=== PATIENT | female | born 1945 | race African-American/Black ===

== ENCOUNTER 2016-07-27 11:31 | Inpatient (IN) | payer MEDICARE, MEDICAID ==
[~2016-07-27] VITALS: Ht 160 cm; Wt 112.9 kg
[~2016-07-27 11:31] MED LIST: ACETAMINOPHEN325 M1 ORAL; ASPIRIN81 MG ORAL; DILTIAZEM ER180 M3 PO; DIOVAN40 MG ORAL; DOK100 M1 PO; ELIQUIS2.5 MG PO; FUROSEMIDE40 MG ORAL; LEVEMIR FL100 UNIT/1 SUBQ; LEVEMIR FL100 UNIT/2 SQ; MONTELUKAST SOD10 MG ORAL; OMEPRAZOLE20 M2 ORAL; SYMBICORT 16010.2 G1 IH; VENTOLIN HFA18 GM INH
[2016-07-27] MEDS ORDERED: Ipratropium 0.02% Inh Soln 2.5ml UD ONE (11:54)
[2016-07-27] MEDS ORDERED: Albuterol ud Inhalation ONE (11:54)
[2016-07-27 11:55] VITALS: BP 130/102
[2016-07-27] MEDS ORDERED: Morphine Sulfate 4mg/ml Inj IVP ONE (12:00)
[2016-07-27] MEDS ORDERED: Ipratropium 0.02% Inh Soln 2.5ml UD HHN ONE (12:00)
[2016-07-27] MEDS ORDERED: Albuterol ud Inhalation HHN ONE (12:00)
[2016-07-27 12:13] LABS: MEAN CORPUSCULAR HEMOGLOBIN 28.3 PG (27.0-31.0); MEAN CORPUSCULAR HGB CONC 33.2 G/DL (32.0-36.0); MEAN CORPUSCULAR VOLUME 85 FL (80-99); MEAN PLATELET VOLUME 8.7 FL (6.5-10.1); PLATELET COUNT 189 K/UL (150-450); RED BLOOD COUNT 3.83 M/UL (4.20-5.40); WHITE BLOOD COUNT 18.2 K/UL (4.8-10.8)
[2016-07-27 12:27] LABS: ALANINE AMINOTRANSFERASE 17 U/L (3-33); ANION GAP 13 (5-15); ASPARTATE AMINO TRANSFERASE 13 U/L (5-40); CALCIUM 9.3 mg/dL (8.6-10.2); CARBON DIOXIDE 33 mEQ/L (20-30); CHLORIDE 97 mEQ/L (98-107); CREATININE 0.9 mg/dL (0.5-0.9); GLOMERULAR FILTRATION RATE > 60 mL/min (>60); HEMOLYSIS 1; LIPASE 18 U/L (< 60); POTASSIUM 3.9 mEQ/L (3.4-4.9); SODIUM 143 mEQ/L (135-145); TOTAL PROTEIN 7.7 g/dL (6.6-8.7); TROPONIN I < 0.30 ng/mL (<=0.30)
[2016-07-27 12:38] LABS: CKMB < 1.5 ng/mL (< 3.8)
[2016-07-27 12:44] LABS: ANISOCYTOSIS 1+; BAND NEUTROPHILS % (MANUAL) 2 % (0-8); BASOPHILS % (MANUAL) 0 % (0-2); EOSINOPHILS % (MANUAL) 1 % (0-3); LYMPHOCYTES % (MANUAL) 26 % (20-45); NEUTROPHILS % (MANUAL) 66 % (45-75); PLATELET ESTIMATE ADEQUATE; PLATELET MORPHOLOGY NORMAL; TOTAL CELLS COUNTED 100
[2016-07-27 12:45] LABS: HYPOCHROMASIA 1+
--- NOTE | 2016-07-27 13:03 | Diagnostic Imaging Report ---
Indication: Chest Pain Comparison: July 14, 2016 A single view chest radiograph was obtained. Findings: Evidence of increased circulatory volume with cardiac enlargement, enlargement of the vascular pedicle and more prominent pulmonary vessels. Mild interstitial edema suspected. Impression: Development of mild interstitial edema
--- NOTE | 2016-07-27 13:10 | Emergency Room Report ---
History of Present Illness General Chief Complaint: Dyspnea/Respdistress Source: Patient, EMS Present Illness HPI Patient presents with complaints of cough and shortness of breath She has also noticed increased swelling in her both of her legs patient was just recently in the hospital with COPD Patient reports worsening symptoms Unknown regarding fever She also complains of shortness of breath and increased chest pain Patient denies any recent travel denies any pleurisy Allergies: Coded Allergies: PENICILLINS (Verified Allergy, Intermediate, Hives, 07/09/16) Patient History Past Medical History: see triage record Pertinent Family History: none Reviewed Nursing Documentation: PMH: Agreed, PSxH: Agreed Nursing Documentation-PMH Past Medical History: No History, Except For Hx Hypertension: Yes Hx Asthma: Yes Hx COPD: Yes Hx Diabetes: Yes Hx Cancer: No Hx Gastrointestinal Problems: No Hx Neurological Problems: No Review of Systems All Other Systems: negative except mentioned in HPI Physical Exam Vital Signs Date Time Temp Pulse Resp B/P Pulse Ox O2 Delivery O2 Flow Rate FiO2 07/27/16 11:32 98.4 102 20 141/79 96 Nasal Cannula 2.0 07/27/16 11:48 28 Sp02 EP Interpretation: reviewed, normal General Appearance: well appearing, no apparent distress Head: normocephalic, atraumatic Eyes: bilateral eye EOMI, bilateral eye PERRL ENT: normal pharynx, no angioedema Neck: supple Respiratory: crackles - Diffuse crackles along with wheezing, no obvious retractions however the patient is tachypneic Cardiovascular #1: regular rate, rhythm Gastrointestinal: soft, no mass Genitourinary: no CVA tenderness Musculoskeletal: normal inspection Neurologic: alert, oriented x3, responsive Skin: other - 2/4 pitting edema Lymphatic: no adenopathy Medical Decision Making Diagnostic Impression: Primary Impression: ACS (acute coronary syndrome) Additional Impression: CHF (congestive heart failure) ER Course Patient is a fairly complex patient with multiple differential to consideration including but not limited to cardiac cardiopulmonary and vascular emergencies Patient has elevated white blood cell count this could potentially be secondary to steroid use x-ray however also shows bilateral effusions Given the patient's clinical history and findings concerning for acute CHF along with ACS patient had acute intervention in the emergency room and further stabilized for further inpatient care Labs Test 07/27/16 12:00 White Blood Count 18.2 K/UL (4.8-10.8) Red Blood Count 3.83 M/UL (4.20-5.40) Hemoglobin 10.9 G/DL (12.0-16.0) Hematocrit 32.7 % (37.0-47.0) Mean Corpuscular Volume 85 FL (80-99) Mean Corpuscular Hemoglobin 28.3 PG (27.0-31.0) Mean Corpuscular Hemoglobin Concent 33.2 G/DL (32.0-36.0) Red Cell Distribution Width 14.0 % (11.6-14.8) Platelet Count 189 K/UL (150-450) Mean Platelet Volume 8.7 FL (6.5-10.1) Neutrophils (%) (Auto) % (45.0-75.0) Lymphocytes (%) (Auto) % (20.0-45.0) Monocytes (%) (Auto) % (1.0-10.0) Eosinophils (%) (Auto) % (0.0-3.0) Basophils (%) (Auto) % (0.0-2.0) Differential Total Cells Counted 100 Neutrophils % (Manual) 66 % (45-75) Lymphocytes % (Manual) 26 % (20-45) Monocytes % (Manual) 5 % (1-10) Eosinophils % (Manual) 1 % (0-3) Basophils % (Manual) 0 % (0-2) Band Neutrophils 2 % (0-8) Platelet Estimate Adequate Platelet Morphology Normal Hypochromasia 1+ Anisocytosis 1+ Sodium Level 143 mEQ/L (135-145) Potassium Level 3.9 mEQ/L (3.4-4.9) Chloride Level 97 mEQ/L (98-107) Carbon Dioxide Level 33 mEQ/L (20-30) Anion Gap 13 (5-15) Blood Urea Nitrogen 16 mg/dL (7-23) Creatinine 0.9 mg/dL (0.5-0.9) Estimat Glomerular Filtration Rate > 60 mL/min (>60) Glucose Level 116 mg/dL (74-106) Calcium Level 9.3 mg/dL (8.6-10.2) Total Bilirubin 0.5 mg/dL (0.0-1.2) Aspartate Amino Transf (AST/SGOT) 13 U/L (5-40) Alanine Aminotransferase (ALT/SGPT) 17 U/L (3-33) Alkaline Phosphatase 100 U/L (35-104) Total Creatine Kinase 18 U/L (26-140) Creatine Kinase MB < 1.5 ng/mL (< 3.8) Creatine Kinase MB Relative Index Troponin I < 0.30 ng/mL (<=0.30) Pro-B-Type Natriuretic Peptide 1724 pg/mL (0-125) Total Protein 7.7 g/dL (6.6-8.7) Albumin 3.9 g/dL (3.5-5.2) Globulin 3.8 g/dL Albumin/Globulin Ratio 1.0 (1.0-2.7) Lipase 18 U/L (< 60) EKG Diagnostic Results Rate: normal Rhythm: NSR ST Segments: other - Prolonged QRS, nonspecific ST and T-wave changes Rhythm Strip Diag. Results EP Interpretation: yes Rate: 89 Rhythm: NSR, no PVC's, no ectopy Chest X-Ray Diagnostic Results EP Interpretation: Yes Findings: no pneumothorax, other - Cardiomegaly, bilateral effusions Number of Views: 1 Last Vital Signs Date Time Temp Pulse Resp B/P Pulse Ox O2 Delivery O2 Flow Rate FiO2 07/27/16 12:20 103 20 100 Nasal Cannula 2.0 28 07/27/16 11:55 98.7 130/102 Status: improved Disposition: ADMITTED INPATIENT Condition: Serious Referrals: NON PHYSICIAN (PCP) JANE MOON D.O. July 27, 2016 13:09
[2016-07-27 14:04] VITALS: BP 124/76
[2016-07-27] MEDS ORDERED: Miralax 17gm pkt ORAL PRN (14:30)
[2016-07-27 16:00] VITALS: BP 123/60
[2016-07-27] MEDS: Morphine Sulfate 2mg/ml Inj IVP PRN ×2 (16:40→21:19)
[2016-07-27] MEDS: NovoLOG Insulin Flexpen SUBQ SCH ×2 (16:43→21:22)
[2016-07-27] MEDS ORDERED: Eliquis 2.5mg tablet ORAL SCH (18:00)
[2016-07-27] MEDS ORDERED: Pneumococcal Vaccine 25mcg/0.5ml IM ONE (19:00)
[2016-07-27 20:19] LABS: TROPONIN I < 0.30 ng/mL (<=0.30)
[2016-07-27 20:22] VITALS: BP 135/77
--- NOTE | 2016-07-27 21:09 | Diagnostic Imaging Report ---
APPROVED REPORT CPT Code: 26377 Present Symptoms Shortness of breath Comments: Technically difficult study due to patient body habitus (Thigh area). BILATERAL: Imaging reveals a patent deep venous system bilaterally. There is no evidence of thrombus within the femoral, popliteal or tibial segments. The greater saphenous veins are also within normal limits. Doppler indicates normal spontaneous flow within these segments.
--- NOTE | 2016-07-28 00:07 | Consultation ---
History of Present Illness General Date patient seen: July 27, 2016 Chief Complaint: Dyspnea/Respdistress Referring physician: dr Solitario Reason for Consultation: dyspnea Present Illness HPI 70 year old female with hx of presents with complaints of cough and shortness of breath, increased swelling in her both of her legs. Her CXR showed mild edema, her cough has been yellow/greenish. Allergies: Coded Allergies: PENICILLINS (Verified Allergy, Intermediate, Hives, 07/09/16) Medication History Scheduled Apixaban (Eliquis), 2.5 MG PO BID, (Reported) Aspirin* (Aspirin*), 81 MG ORAL DAILY, (Reported) Budesonide/Formoterol Fumarate (Symbicort 160-4.5 Mcg Inhaler), 2 PUFF IH BID, ( Reported) Diltiazem HCl (Diltiazem ER), 180 MG PO DAILY, (Reported) Docusate Sodium (Dok), 100 MG PO BID, (Reported) Furosemide* (Lasix*), 40 MG ORAL NEEDED, (Reported) Insulin Detemir (Levemir Flexpen), 15 SUBQ QHS, (Reported) Montelukast Sodium* (Montelukast Sodium*), 10 MG ORAL DAILY, (Reported) Omeprazole (Omeprazole), 20 MG ORAL DAILY, (Reported) Valsartan (Diovan), 40 MG ORAL DAILY, (Reported) Scheduled PRN Albuterol Sulfate (Ventolin Hfa), 2 PUFFS INH EVERY 6 HOURS PRN for Shortness of Breath, (Reported) Patient History Healthcare decision maker Resuscitation status Full Code Advanced Directive on File Past Medical/Surgical History Past Medical/Surgical History: (1) CHF (congestive heart failure) (2) Hyperthyroidism (3) Hypertension (4) Morbid obesity (5) COPD (chronic obstructive pulmonary disease) Review of Systems All Other Systems: negative except mentioned in HPI Physical Exam General Appearance: WD/WN, no apparent distress Lines, tubes and drains: peripheral HEENT: normocephalic, atraumatic, PERRL Neck: non-tender Respiratory/Chest: crackles/rales, rhonchi - bilaterally Cardiovascular/Chest: normal peripheral pulses Abdomen: normal bowel sounds, non tender Genitourinary/Rectal: normal genital exam Extremities: normal range of motion, non-tender Last 24 Hour Vital Signs Date Time Temp Pulse Resp B/P Pulse Ox O2 Delivery O2 Flow Rate FiO2 07/27/16 20:22 98.1 92 18 135/77 98 Nasal Cannula 2.0 07/27/16 20:00 100 07/27/16 16:00 94 07/27/16 16:00 97.9 97 22 123/60 97 Nasal Cannula 2.0 07/27/16 14:25 98.2 100 22 124/76 98 Nasal Cannula 2.0 28 07/27/16 14:04 98.2 100 22 124/76 98 Nasal Cannula 2.0 07/27/16 12:20 103 20 100 Nasal Cannula 2.0 28 07/27/16 11:55 96 23 Nasal Cannula 2.0 98 07/27/16 11:55 98.7 63 23 130/102 98 Nasal Cannula 2.0 07/27/16 11:50 93 20 Nasal Cannula 2.0 28 07/27/16 11:48 93 20 100 Nasal Cannula 2.0 28 07/27/16 11:32 98.4 102 20 141/79 96 Nasal Cannula 2.0 Intake and Output 07/27/16 07/28/16 19:00 07:00 Output Total 200 ml Balance -200 ml Output Urine Total 200 ml # Voids 5 Laboratory Tests Test 07/27/16 12:00 07/27/16 19:55 White Blood Count 18.2 K/UL (4.8-10.8) H Red Blood Count 3.83 M/UL (4.20-5.40) L Hemoglobin 10.9 G/DL (12.0-16.0) L Hematocrit 32.7 % (37.0-47.0) L Mean Corpuscular Volume 85 FL (80-99) Mean Corpuscular Hemoglobin 28.3 PG (27.0-31.0) Mean Corpuscular Hemoglobin Concent 33.2 G/DL (32.0-36.0) Red Cell Distribution Width 14.0 % (11.6-14.8) Platelet Count 189 K/UL (150-450) Mean Platelet Volume 8.7 FL (6.5-10.1) Neutrophils (%) (Auto) % (45.0-75.0) Lymphocytes (%) (Auto) % (20.0-45.0) Monocytes (%) (Auto) % (1.0-10.0) Eosinophils (%) (Auto) % (0.0-3.0) Basophils (%) (Auto) % (0.0-2.0) Differential Total Cells Counted 100 Neutrophils % (Manual) 66 % (45-75) Lymphocytes % (Manual) 26 % (20-45) Monocytes % (Manual) 5 % (1-10) Eosinophils % (Manual) 1 % (0-3) Basophils % (Manual) 0 % (0-2) Band Neutrophils 2 % (0-8) Platelet Estimate Adequate Platelet Morphology Normal Hypochromasia 1+ Anisocytosis 1+ Sodium Level 143 mEQ/L (135-145) Potassium Level 3.9 mEQ/L (3.4-4.9) Chloride Level 97 mEQ/L (98-107) L Carbon Dioxide Level 33 mEQ/L (20-30) H Anion Gap 13 (5-15) Blood Urea Nitrogen 16 mg/dL (7-23) Creatinine 0.9 mg/dL (0.5-0.9) Estimat Glomerular Filtration Rate > 60 mL/min (>60) Glucose Level 116 mg/dL (74-106) H Calcium Level 9.3 mg/dL (8.6-10.2) Total Bilirubin 0.5 mg/dL (0.0-1.2) Aspartate Amino Transf (AST/SGOT) 13 U/L (5-40) Alanine Aminotransferase (ALT/SGPT) 17 U/L (3-33) Alkaline Phosphatase 100 U/L (35-104) Total Creatine Kinase 18 U/L (26-140) L Creatine Kinase MB < 1.5 ng/mL (< 3.8) Creatine Kinase MB Relative Index Troponin I < 0.30 ng/mL (<=0.30) < 0.30 ng/mL (<=0.30) Pro-B-Type Natriuretic Peptide 1724 pg/mL (0-125) H Total Protein 7.7 g/dL (6.6-8.7) Albumin 3.9 g/dL (3.5-5.2) Globulin 3.8 g/dL Albumin/Globulin Ratio 1.0 (1.0-2.7) Lipase 18 U/L (< 60) Height (Feet): 5 Height (Inches): 3.00 Weight (Pounds): 249 Medications Current Medications Medications (Trade) Dose Ordered Sig/Anthony Route PRN Reason Start Time Stop Time Status Last Admin Dose Admin Acetaminophen (Tylenol) 650 mg Q4H PRN ORAL Fever 07/27/16 14:30 08/26/16 14:29 Albuterol/ Ipratropium (DuoNeb 0.5-3(2.5)mg/3ml) 3 ml Q4H PRN HHN Shortness of Breath 07/27/16 14:30 08/01/16 14:29 Apixaban (Eliquis) 2.5 mg BID ORAL 07/27/16 18:00 08/26/16 17:59 UNV Dextrose (Dextrose 50%) STAT PRN IV Hypoglycemia 07/27/16 14:30 08/26/16 14:29 Furosemide (Lasix) 40 mg EVERY 8 HOURS IV 07/27/16 22:00 08/26/16 21:59 07/27/16 21:40 Insulin Aspart (NovoLOG) BEFORE MEALS AND HS SUBQ 07/27/16 16:30 08/26/16 16:29 07/27/16 21:22 Morphine Sulfate (Morphine Sulfate) 2 mg Q4H PRN IVP For Pain 07/27/16 15:45 08/03/16 15:44 07/27/16 21:19 Ondansetron HCl (Zofran) 4 mg Q6H PRN IVP Nausea & Vomiting 07/27/16 14:30 08/26/16 14:29 Polyethylene Glycol (Miralax) 17 gm DAILYPRN PRN ORAL Constipation 07/27/16 14:30 08/26/16 14:29 Temazepam (Restoril) 15 mg HSPRN PRN ORAL Insomnia 07/27/16 14:30 08/03/16 14:29 Assessment/Plan Problem List: (1) ACS (acute coronary syndrome) ICD Codes: I24.9 - Acute ischemic heart disease, unspecified SNOMED: 559426403 (2) COPD exacerbation ICD Codes: J44.1 - Chronic obstructive pulmonary disease with (acute) exacerbation SNOMED: 924820705, 212282286 (3) CHF (congestive heart failure) ICD Codes: I50.9 - Heart failure, unspecified SNOMED: 56992604 (4) Hypertension ICD Codes: I10 - Essential (primary) hypertension SNOMED: 93213088 (5) Diabetes mellitus type II, uncontrolled ICD Codes: E11.65 - Type 2 diabetes mellitus with hyperglycemia SNOMED: 83538628, 177432837 Assessment/Plan respiratory treatment IV antibiotics diuretics check sputum sliding scale dvt prophylaxis SOPHIA IBARRA July 28, 2016 00:07
[2016-07-28 00:13] VITALS: BP 121/57
[2016-07-28] MEDS: Morphine Sulfate 2mg/ml Inj IVP PRN ×5 (02:17→20:04)
[2016-07-28] MEDS: DuoNeb 0.5-3(2.5)mg/3ml neb HHN PRN ×3 (02:47→21:18)
[2016-07-28 04:02] VITALS: BP 137/76
[2016-07-28 04:36] LABS: EOSINOPHILS % (AUTO) 1.2 % (0.0-3.0); LYMPHOCYTES % (AUTO) 12.9 % (20.0-45.0); MEAN CORPUSCULAR HEMOGLOBIN 28.3 PG (27.0-31.0); MEAN CORPUSCULAR HGB CONC 33.6 G/DL (32.0-36.0); MEAN CORPUSCULAR VOLUME 84 FL (80-99); MEAN PLATELET VOLUME 8.7 FL (6.5-10.1); MONOCYTES % (AUTO) 8.6 % (1.0-10.0); NEUTROPHILS % (AUTO) 75.3 % (45.0-75.0); PLATELET COUNT 179 K/UL (150-450); RED BLOOD COUNT 3.39 M/UL (4.20-5.40); RED CELL DISTRIBUTION WIDTH 13.6 % (11.6-14.8); WHITE BLOOD COUNT 14.9 K/UL (4.8-10.8)
[2016-07-28 05:03] LABS: ALANINE AMINOTRANSFERASE 16 U/L (3-33); ALBUMIN/GLOBULIN RATIO 1.4 (1.0-2.7); ANION GAP -2 (5-15); ANION GAP 14 (5-15); ASPARTATE AMINO TRANSFERASE 16 U/L (5-40); CALCIUM 8.4 mg/dL (8.6-10.2); CALCIUM 8.9 mg/dL (8.6-10.2); CARBON DIOXIDE 32 mEQ/L (20-30); CARBON DIOXIDE 33 mEQ/L (20-30); CHLORIDE 94 mEQ/L (98-107); CHLORIDE 99 mEQ/L (98-107); CREATININE 0.9 mg/dL (0.5-0.9); GLOMERULAR FILTRATION RATE > 60 mL/min (>60); HEMOLYSIS 0; SODIUM 130 mEQ/L (135-145); SODIUM 140 mEQ/L (135-145); TOTAL PROTEIN 5.9 g/dL (6.6-8.7)
[2016-07-28 05:04] LABS: TROPONIN I < 0.30 ng/mL (<=0.30)
[2016-07-28] MEDS: NovoLOG Insulin Flexpen SUBQ SCH ×4 (06:35→20:06)
[2016-07-28 07:54] VITALS: BP 153/64
[2016-07-28] MEDS ORDERED: Vancomycin 1 GM in D5W 275 ML IVPB SCH (09:00)
--- NOTE | 2016-07-28 09:05 | Pulmonology Progress Note ---
Assessment/Plan Problems: (1) ACS (acute coronary syndrome) (2) COPD exacerbation (3) CHF (congestive heart failure) (4) Hypertension (5) Diabetes mellitus type II, uncontrolled Assessment/Plan check sputum hold lasix for now respiratory treatment sliding scale diabetic diet IV antibiotics ID and cardio consult Subjective ROS Limited/Unobtainable: No Interval Events: still coughing, less short of breath Allergies: Coded Allergies: PENICILLINS (Verified Allergy, Intermediate, Hives, 07/09/16) Objective Last 24 Hour Vital Signs Date Time Temp Pulse Resp B/P Pulse Ox O2 Delivery O2 Flow Rate FiO2 07/28/16 07:54 97.3 105 20 153/64 95 Nasal Cannula 2.0 07/28/16 04:02 98.6 62 18 137/76 99 Nasal Cannula 2.0 07/28/16 04:00 95 07/28/16 02:49 80 20 Nasal Cannula 2.0 28 07/28/16 02:48 100 20 99 Nasal Cannula 2.0 28 07/28/16 02:47 79 20 97 Nasal Cannula 2.0 28 07/28/16 00:13 98.4 53 19 121/57 96 Room Air 07/28/16 00:00 100 07/27/16 20:22 98.1 92 18 135/77 98 Nasal Cannula 2.0 07/27/16 20:00 100 07/27/16 19:30 97 Nasal Cannula 2.0 07/27/16 19:30 Nasal Cannula 2.0 28 07/27/16 16:00 94 07/27/16 16:00 97.9 97 22 123/60 97 Nasal Cannula 2.0 07/27/16 14:25 98.2 100 22 124/76 98 Nasal Cannula 2.0 28 07/27/16 14:04 98.2 100 22 124/76 98 Nasal Cannula 2.0 07/27/16 12:20 103 20 100 Nasal Cannula 2.0 28 07/27/16 11:55 96 23 Nasal Cannula 2.0 98 07/27/16 11:55 98.7 63 23 130/102 98 Nasal Cannula 2.0 07/27/16 11:50 93 20 Nasal Cannula 2.0 28 07/27/16 11:48 93 20 100 Nasal Cannula 2.0 28 07/27/16 11:32 98.4 102 20 141/79 96 Nasal Cannula 2.0 Intake and Output 07/27/16 07/28/16 19:00 07:00 Output Total 200 ml Balance -200 ml Output Urine Total 200 ml # Voids 5 5 # Bowel Movements 1 General Appearance: WD/WN HEENT: normocephalic, atraumatic Respiratory/Chest: chest wall non-tender, lungs clear Breasts: no masses Cardiovascular: normal peripheral pulses Abdomen: normal bowel sounds Genitourinary: normal external genitalia Extremities: no cyanosis Skin: no rash Laboratory Tests 07/27/16 12:00: White Blood Count 18.2H, Red Blood Count 3.83L, Hemoglobin 10.9L, Hematocrit 32.7L, Mean Corpuscular Volume 85, Mean Corpuscular Hemoglobin 28.3, Mean Corpuscular Hemoglobin Concent 33.2, Red Cell Distribution Width 14.0, Platelet Count 189, Mean Platelet Volume 8.7, Neutrophils (%) (Auto) , Lymphocytes (%) ( Auto) , Monocytes (%) (Auto) , Eosinophils (%) (Auto) , Basophils (%) (Auto) , Differential Total Cells Counted 100, Neutrophils % (Manual) 66, Lymphocytes % ( Manual) 26, Monocytes % (Manual) 5, Eosinophils % (Manual) 1, Basophils % ( Manual) 0, Band Neutrophils 2, Platelet Estimate Adequate, Platelet Morphology Normal, Hypochromasia 1+, Anisocytosis 1+, Sodium Level 143, Potassium Level 3.9 , Chloride Level 97L, Carbon Dioxide Level 33H, Anion Gap 13, Blood Urea Nitrogen 16, Creatinine 0.9, Estimat Glomerular Filtration Rate > 60, Glucose Level 116H, Calcium Level 9.3, Total Bilirubin 0.5, Aspartate Amino Transf (AST/ SGOT) 13, Alanine Aminotransferase (ALT/SGPT) 17, Alkaline Phosphatase 100, Total Creatine Kinase 18L, Creatine Kinase MB < 1.5, Creatine Kinase MB Relative Index , Troponin I < 0.30, Pro-B-Type Natriuretic Peptide 1724H, Total Protein 7.7, Albumin 3.9, Globulin 3.8, Albumin/Globulin Ratio 1.0, Lipase 18 07/27/16 19:55: Troponin I < 0.30 07/28/16 04:10: White Blood Count 14.9H, Red Blood Count 3.39L, Hemoglobin 9.6L, Hematocrit 28.6L, Mean Corpuscular Volume 84, Mean Corpuscular Hemoglobin 28.3, Mean Corpuscular Hemoglobin Concent 33.6, Red Cell Distribution Width 13.6, Platelet Count 179, Mean Platelet Volume 8.7, Neutrophils (%) (Auto) 75.3H, Lymphocytes ( %) (Auto) 12.9L, Monocytes (%) (Auto) 8.6, Eosinophils (%) (Auto) 1.2, Basophils (%) (Auto) 2.0, Sodium Level 130#L, Potassium Level 4.0, Chloride Level 99, Carbon Dioxide Level 33H, Anion Gap -2L, Blood Urea Nitrogen 15, Creatinine 0.9, Estimat Glomerular Filtration Rate > 60, Glucose Level 143H, Calcium Level 8.9, Total Bilirubin 0.5, Aspartate Amino Transf (AST/SGOT) 16, Alanine Aminotransferase (ALT/SGPT) 16, Alkaline Phosphatase 106H, Troponin I < 0.30, Total Protein 5.9L, Albumin 3.5, Globulin 2.4, Albumin/Globulin Ratio 1.4 , Phosphorus Level 4.0 Current Medications Medications (Trade) Dose Ordered Sig/Anthony Route PRN Reason Start Time Stop Time Status Last Admin Dose Admin Acetaminophen (Tylenol) 650 mg Q4H PRN ORAL Fever 07/27/16 14:30 08/26/16 14:29 Albuterol/ Ipratropium (DuoNeb 0.5-3(2.5)mg/3ml) 3 ml Q4H PRN HHN Shortness of Breath 07/27/16 14:30 08/01/16 14:29 07/28/16 02:47 Apixaban (Eliquis) 2.5 mg BID ORAL 07/27/16 18:00 08/26/16 17:59 UNV Aztreonam 1 gm/ Sodium Chloride 55 ml @ 110 mls/hr EVERY 8 HOURS IVPB 07/28/16 09:00 08/04/16 08:59 UNV Dextrose (Dextrose 50%) STAT PRN IV Hypoglycemia 07/27/16 14:30 08/26/16 14:29 Insulin Aspart (NovoLOG) BEFORE MEALS AND HS SUBQ 07/27/16 16:30 08/26/16 16:29 07/28/16 06:35 Levofloxacin (Levaquin) 100 ml @ 100 mls/hr Q24H IVPB 07/28/16 09:00 08/04/16 08:59 UNV Morphine Sulfate 2 mg 2 mg Q4H PRN IVP For Pain 07/27/16 15:45 08/03/16 15:44 07/28/16 06:32 Ondansetron HCl (Zofran) 4 mg Q6H PRN IVP Nausea & Vomiting 07/27/16 14:30 08/26/16 14:29 Polyethylene Glycol (Miralax) 17 gm DAILYPRN PRN ORAL Constipation 07/27/16 14:30 08/26/16 14:29 Temazepam (Restoril) 15 mg HSPRN PRN ORAL Insomnia 07/27/16 14:30 08/03/16 14:29 Vancomycin HCl 1 gm/Dextrose 275 ml @ 183.3 mls/ hr Q8HR IVPB 07/28/16 09:00 08/02/16 08:59 UNV SOPHIA IBARRA July 28, 2016 09:05
[2016-07-28 11:44] VITALS: BP 144/71
[2016-07-28 12:32] LABS: TROPONIN I < 0.30 ng/mL (<=0.30)
--- NOTE | 2016-07-28 12:39 | Consultation ---
Consult Note Consult Note ID Dic# [id number] GAY SANTOS M.D. July 28, 2016 12:39
[2016-07-28] MEDS: Aztreonam Inj 1 GM in NS 55 ML IVPB SCH ×2 (13:40→23:09)
--- NOTE | 2016-07-28 14:28 | Cardiology Report ---
APPROVED REPORT EKG Measurement Heart [id number] sinus with pac adn pvc Left axis deviation Right bundle branch block Anterior infarct, age undetermined Abnormal ECG
[2016-07-28] MEDS ORDERED: Vancomycin 1.5 GM in D5W 325 ML IVPB ONE (16:00)
[2016-07-28 16:11] VITALS: BP 159/82
--- NOTE | 2016-07-28 16:40 | Cardiac Electrophysiology PN ---
Subjective Subjective [id number] Objective Last 24 Hour Vital Signs Date Time Temp Pulse Resp B/P Pulse Ox O2 Delivery O2 Flow Rate FiO2 07/28/16 16:11 97.7 98 22 159/82 98 Nasal Cannula 2.0 07/28/16 16:00 96 07/28/16 12:00 96 07/28/16 11:46 93 20 99 Nasal Cannula 2.0 28 07/28/16 11:44 98.2 93 20 144/71 96 Nasal Cannula 2.0 07/28/16 11:36 90 18 100 Nasal Cannula 2.0 28 07/28/16 08:00 97 07/28/16 07:54 97.3 105 20 153/64 95 Nasal Cannula 2.0 07/28/16 07:50 Nasal Cannula 2.0 28 07/28/16 07:50 96 Nasal Cannula 2.0 28 07/28/16 07:50 86 20 Nasal Cannula 2.0 28 07/28/16 04:02 98.6 62 18 137/76 99 Nasal Cannula 2.0 07/28/16 04:00 95 07/28/16 02:49 80 20 Nasal Cannula 2.0 28 07/28/16 02:48 100 20 99 Nasal Cannula 2.0 28 07/28/16 02:47 79 20 97 Nasal Cannula 2.0 28 07/28/16 00:13 98.4 53 19 121/57 96 Room Air 07/28/16 00:00 100 07/27/16 20:22 98.1 92 18 135/77 98 Nasal Cannula 2.0 07/27/16 20:00 100 07/27/16 19:30 97 Nasal Cannula 2.0 28 07/27/16 19:30 Nasal Cannula 2.0 28 Intake and Output 07/27/16 07/28/16 19:00 07:00 Output Total 200 ml Balance -200 ml Output Urine Total 200 ml # Voids 5 5 # Bowel Movements 1 Laboratory Tests Test 07/27/16 19:55 07/28/16 04:10 07/28/16 12:05 Troponin I < 0.30 ng/mL (<=0.30) < 0.30 ng/mL (<=0.30) < 0.30 ng/mL (<=0.30) White Blood Count 14.9 K/UL (4.8-10.8) H Red Blood Count 3.39 M/UL (4.20-5.40) L Hemoglobin 9.6 G/DL (12.0-16.0) L Hematocrit 28.6 % (37.0-47.0) L Mean Corpuscular Volume 84 FL (80-99) Mean Corpuscular Hemoglobin 28.3 PG (27.0-31.0) Mean Corpuscular Hemoglobin Concent 33.6 G/DL (32.0-36.0) Red Cell Distribution Width 13.6 % (11.6-14.8) Platelet Count 179 K/UL (150-450) Mean Platelet Volume 8.7 FL (6.5-10.1) Neutrophils (%) (Auto) 75.3 % (45.0-75.0) H Lymphocytes (%) (Auto) 12.9 % (20.0-45.0) L Monocytes (%) (Auto) 8.6 % (1.0-10.0) Eosinophils (%) (Auto) 1.2 % (0.0-3.0) Basophils (%) (Auto) 2.0 % (0.0-2.0) Sodium Level 130 mEQ/L (135-145) #L Potassium Level 4.0 mEQ/L (3.4-4.9) Chloride Level 99 mEQ/L (98-107) Carbon Dioxide Level 33 mEQ/L (20-30) H Anion Gap -2 (5-15) L Blood Urea Nitrogen 15 mg/dL (7-23) Creatinine 0.9 mg/dL (0.5-0.9) Estimat Glomerular Filtration Rate > 60 mL/min (>60) Glucose Level 143 mg/dL (74-106) H Calcium Level 8.9 mg/dL (8.6-10.2) Phosphorus Level 4.0 mg/dL (2.5-4.8) Total Bilirubin 0.5 mg/dL (0.0-1.2) Aspartate Amino Transf (AST/SGOT) 16 U/L (5-40) Alanine Aminotransferase (ALT/SGPT) 16 U/L (3-33) Alkaline Phosphatase 106 U/L (35-104) H Total Protein 5.9 g/dL (6.6-8.7) L Albumin 3.5 g/dL (3.5-5.2) Globulin 2.4 g/dL Albumin/Globulin Ratio 1.4 (1.0-2.7) STEF GIBBS July 28, 2016 16:40
--- NOTE | 2016-07-28 16:41 | History & Physical ---
History and Physical History & Physicial Cover for Int Med-Dr Solitario no. [id number]. GERMAN WEBSTER July 28, 2016 16:41
[2016-07-28] MEDS: Heparin 5000 units/ml inj SUBQ SCH (20:07)
[2016-07-28 20:36] LABS: TROPONIN I < 0.30 ng/mL (<=0.30)
--- NOTE | 2016-07-28 22:31 | Consultation ---
DATE OF CONSULTATION: 07/28/2016 CONSULTING PHYSICIAN: Sundar Gonzalez M.D REFERRING PHYSICIAN: Sharan Mariscal M.D. REASON FOR CONSULTATION: Evaluation of the patient for pneumonia and antibiotic management. HISTORY OF PRESENT ILLNESS: The patient is a 70-year-old female with multiple medical problems who was admitted this medical center for shortness of breath, cough, and sputum production. The patient has been started on IV antibiotics, and Infectious Disease consultation had been requested for further evaluation of the patient's antibiotic management. PAST MEDICAL HISTORY: 1. Hypertension. 2. CHF. 3. COPD. 4. Osteoarthritis. 5. Diabetes. ALLERGIES: Penicillin. FAMILY HISTORY: Noncontributory. REVIEW OF SYSTEMS: HEENT: No recent change in vision or hearing. Pulmonary: As mentioned above. Cardiovascular: As mentioned above. Gastrointestinal/Abdomen: No nausea or vomiting. Genitourinary: No dysuria. MEDICATIONS: Vancomycin, aztreonam, and Levaquin. PHYSICAL EXAMINATION: VITAL SIGNS: Temperature 98.2, blood pressure 144/71, pulse 86, respiratory rate 18. HEENT: Mild pale conjunctivae. No icterus. NECK: No lymphadenopathy. CHEST: Coarse breathing sounds. Bilateral wheezes at bases of both lungs. HEART: S1 and S2. ABDOMEN: Soft, obese, and nontender. EXTREMITIES: No cyanosis. NEUROLOGIC: Awake and alert. LABORATORY DATA: White blood cells 14.9, 18.2; hemoglobin 9.6; and platelets 179,000. UA unremarkable. BUN 16 and creatinine 0.9. ALT and AST unremarkable. Alkaline phosphatase 106. Sputum culture is pending. Chest x-ray shows mild interstitial edema. ASSESSMENT: The patient is a 70-year-old female with multiple medical problems who has been admitted to this medical center with shortness of breath and cough, probably underlying community acquired pneumonia versus bronchitis and also leukocytosis. PLAN: 1. I agree with continuing the patient on Levaquin and aztreonam for now. We will hold vancomycin for now. 2. Monitor CBC. 3. Monitor BMP. 4. Monitor cultures (blood, sputum). 5. Monitor chest x-ray. 6. Based on the patient's clinical course and labs, we will give further recommendation. Thank you Dr. Mariscal, for allowing me to participate in the care of this patient. I will follow the patient with you during this hospitalization. Sundar Gonzalez M.D. DR: GLORIA JOB#: [id number] CC:
--- NOTE | 2016-07-28 23:01 | History and Physical Report ---
DATE OF ADMISSION: 07/28/2016 CHIEF COMPLAINT: The patient is a 70-year-old female, who presents with chief complaint of shortness of breath and chest pain. HISTORY OF PRESENT ILLNESS: The patient was admitted to [facility] from 07/09/2016 to 07/15/2016. The patient was admitted for chronic obstructive pulmonary disease, acute exacerbation. The patient states that she got a cold on Wednesday dated 07/24/2016. The patient had fevers and chills. The patient also had a cough. On 07/26/2016, the patient began to have a greenish sputum. The patient also continued to have fevers and chills. The patient presented to [facility]. The patient was admitted for chronic obstructive pulmonary disease, acute exacerbation, to rule out pneumonia. PAST MEDICAL HISTORY: Significant for: 1. Chronic obstructive pulmonary disease. 2. Asthma. 3. Diabetes type 2. 4. Hypertension. 5. Obesity. PAST SURGICAL HISTORY: Significant for colon resection. CURRENT MEDICATIONS: 1. Albuterol metered-dose inhaler two puffs p.o. q.i.d. 2. Eliquis 2.5 mg one tablet p.o. twice daily. 3. Aspirin 81 mg one tablet p.o. daily. 4. Symbicort two puffs p.o. twice daily. 5. Diltiazem 180 mg one tablet p.o. daily. 6. Lasix 40 mg one tablet p.o. daily. 7. Levemir 15 units subcutaneously at bedtime. 8. Singulair 10 mg one tablet p.o. daily. 9. Omeprazole 20 mg one tablet p.o. daily. 10. Diovan 40 mg one tablet p.o. daily. ALLERGIES: Penicillin. SOCIAL HISTORY: The patient lives in a cage. The patient denies tobacco use. The patient admits alcohol use of about three beers daily. REVIEW OF SYSTEMS: Constitutional: The patient denies weight loss or weight gain. The patient complains of subjective fevers and chills as above. HEENT: The patient denies ear or throat pain. The patient denies headache. Cardiovascular: The patient complains of chest pain as above. The patient denies palpitations. Abdomen: The patient denies nausea, vomiting, or constipation. Chest: The patient complains of wheezes and productive cough as above. Abdomen: The patient denies nausea, vomiting, or constipation. Genitourinary: The patient denies dysuria or increased frequency of urination. Neuromuscular: The patient denies seizures or generalized weakness. PHYSICAL EXAMINATION: VITAL SIGNS: Temperature is 97.3 degrees, respirations 20, pulse 105, blood pressure 153/64, and oxygen saturation 95% on two liters of oxygen per nasal cannula. GENERAL: The patient is a well-developed and well-nourished obese female, in no apparent distress. HEENT: Eyes, pupils are equal and responsive to light and accommodation. Extraocular movements are intact. NECK: Supple. No lymphadenopathy. CHEST: Scattered wheezes in the bilateral lung serrano, left greater than right. Otherwise, clear to auscultation bilaterally without rales. CARDIOVASCULAR: Tachycardic. Regular rate. S1 and S2 are normal without murmurs, rubs, or gallops. ABDOMEN: Soft, nontender, and nondistended. Positive bowel sounds. No hepatosplenomegaly. Currently, no rebound or guarding noted. EXTREMITIES: Negative for clubbing, cyanosis, or edema. There is trace to 1+ edema in bilateral ankles. NEUROLOGIC: Cranial nerves II through XII are grossly intact without focal deficits. Motor strength is 5/5 bilaterally. Deep tendon reflexes are 2+ plantar. LABORATORY STUDIES: WBC is 18.2, hemoglobin 10.9, hematocrit 32.7, and platelets 189,000. Sodium is 140, potassium 4.0, chloride 94, CO2 32, BUN 14, creatinine 0.9, and glucose 143. Troponin is less than 0.3. DIAGNOSTIC DATA: Chest x-ray revealed mild interstitial edema. Venous Duplex Doppler of the bilateral lower extremities demonstrates deep venous thrombosis of bilateral lower extremities. ASSESSMENT: This is a 70-year-old female, 1. Chest pain. 2. Shortness of breath. 3. Pedal edema. 4. Leukocytosis. 5. Chronic obstructive pulmonary disease. 6. Diabetes type 2. 7. Hypertension. 8. Obesity. TREATMENT: 1. Chest pain. Cardiology consultation will be obtained with Dr. Jerod Chandler. Serial troponin levels to be run. An echocardiogram is pending. 2. Shortness of breath. This started secondary to chronic obstructive pulmonary disease exacerbation versus asthma. The patient also has productive sputum. The patient has been started empirically on vancomycin and Levaquin. We will follow recommendations of Pulmonary. A Pulmonary consultation will be obtained with Dr. Sharan Mariscal. 3. Leukocytosis, probably secondary to asthma exacerbation as above. 4. Diabetes type 2. Continue NovoLog sliding scale. Accu-Cheks will be performed before meals and at bedtime. 5. Hypertension. Continue valsartan and diltiazem as above. 6. Obesity. Sg Bullock M.D. DR: Krystle JOB#: [id number] CC:
[2016-07-29] VITALS: BP 146/58
[2016-07-29] MEDS: Morphine Sulfate 2mg/ml Inj IVP PRN ×6 (01:07→22:41)
--- NOTE | 2016-07-29 01:31 | Consultation ---
DATE OF CONSULTATION: 07/28/2016 CARDIOLOGY CONSULTATION REFERRING PHYSICIAN: Yan Solitario M.D. REASON FOR CONSULTATION: Hypertension and congestive heart failure. HISTORY OF PRESENT ILLNESS: The patient is a 70-year-old lady with a history of hypertension, diabetes, and history of congestive heart failure due to diastolic dysfunction as well as severe COPD and morbid obesity, who was just recently discharged from the hospital one month ago. The patient came to the emergency room complaining of shortness of breath and cough and increased swelling in her legs. Her chest x-ray was suggestive of edema. The patient was also complaining of chest pain. The patient was admitted and a Cardiology consultation was obtained for further evaluation. On previous admission, also the patient complained of chest pain, but it was felt that was atypical and a stress test was not done at that time. Her echocardiogram on 07/15/2016 showed an ejection fraction of 55% to 60%. No evidence of left ventricular hypertrophy. PAST MEDICAL HISTORY: 1. Hypertension. 2. Diabetes. 3. Morbid obesity. 4. Chronic obstructive pulmonary disease. MEDICATIONS: As an outpatient include 12.5 mg b.i.d., aspirin, Cardizem CD 180 mg daily, Lasix 40 mg, insulin, Diovan 40 mg daily, and Omeprazole. SOCIAL HISTORY: She lives at home. Does not smoke or drink alcohol. REVIEW OF SYSTEM: Review of system was thoroughly performed that was negative other than what was mentioned in the history of present illness. PHYSICAL EXAMINATION: VITAL SIGNS: Blood pressure is 159/82, pulse is 98, respirations 22, and she is afebrile. HEAD AND NECK: Shows mild JVD. LUNGS: Decreased breath sounds. There are scattered wheezes. CARDIOVASCULAR: Shows regular S1 and S2 with no gallop or murmur. ABDOMEN: Obese. EXTREMITIES: With 2+ pitting edema. LABORATORY DATA: White count of 14.9, hemoglobin 9.7, hematocrit 28.6, and platelet count of 179,000. Sodium 130, potassium 4.0, BUN 15, creatinine 0.9, and glucose of 142. Troponin is negative x3. ASSESSMENT AND PLAN: Chest pain. This could be secondary to the patient's congestive heart failure. The patient will be ruled out for myocardial infarction. EKG showed sinus rhythm with right bundle-branch block as well as left anterior fascicular block. PLAN: 1. I will increase her Lasix to 40 mg IV b.i.d. 2. Repeat the BNP in the morning. 3. Hypertension. Resume Lasix and Cardizem. 4. Chronic obstructive pulmonary disease. 5. Morbid obesity. Thank you very much, Dr. Solitario, for allowing me to participate in the care of this patient. Please do not hesitate to contact me for any questions regarding my evaluation. Jerod Chandler M.D. DR: JIM JOB#: [id number] CC:
[2016-07-29 04:00] VITALS: BP 144/68
[2016-07-29] MEDS ORDERED: Vancomycin 1250mg/D5W 275ml IVPB SCH ×2 (04:00)
[2016-07-29 05:03] LABS: BASOPHILS % (AUTO) 0.5 % (0.0-2.0); EOSINOPHILS % (AUTO) 1.4 % (0.0-3.0); LYMPHOCYTES % (AUTO) 15.6 % (20.0-45.0); MEAN CORPUSCULAR HEMOGLOBIN 28.7 PG (27.0-31.0); MEAN CORPUSCULAR VOLUME 87 FL (80-99); MEAN PLATELET VOLUME 8.5 FL (6.5-10.1); NEUTROPHILS % (AUTO) 77.5 % (45.0-75.0); PLATELET COUNT 187 K/UL (150-450); RED BLOOD COUNT 3.38 M/UL (4.20-5.40); RED CELL DISTRIBUTION WIDTH 13.4 % (11.6-14.8); WHITE BLOOD COUNT 12.8 K/UL (4.8-10.8)
[2016-07-29] MEDS: Aztreonam Inj 1 GM in NS 55 ML IVPB SCH ×3 (05:14→22:56)
[2016-07-29 05:34] LABS: ALANINE AMINOTRANSFERASE 17 U/L (3-33); ANION GAP 10 (5-15); ASPARTATE AMINO TRANSFERASE 16 U/L (5-40); CALCIUM 9.2 mg/dL (8.6-10.2); CARBON DIOXIDE 37 mEQ/L (20-30); CHLORIDE 91 mEQ/L (98-107); CREATININE 0.9 mg/dL (0.5-0.9); GLOMERULAR FILTRATION RATE > 60 mL/min (>60); HEMOLYSIS 0; POTASSIUM 3.8 mEQ/L (3.4-4.9); SODIUM 138 mEQ/L (135-145); TOTAL PROTEIN 6.8 g/dL (6.6-8.7)
[2016-07-29 05:36] LABS: TROPONIN I < 0.30 ng/mL (<=0.30)
[2016-07-29] MEDS: NovoLOG Insulin Flexpen SUBQ SCH ×4 (05:46→23:00)
[2016-07-29 07:51] VITALS: BP 168/84
[2016-07-29] MEDS: DuoNeb 0.5-3(2.5)mg/3ml neb HHN PRN ×2 (08:02→21:52)
[2016-07-29] MEDS: Heparin 5000 units/ml inj SUBQ SCH ×2 (08:20→23:00)
[2016-07-29] MEDS ORDERED: Diltiazem CD 180mg cap ORAL SCH (09:00)
--- NOTE | 2016-07-29 11:27 | Diagnostic Imaging Report ---
Indication: Dyspnea Comparison: 07/27/16 A single view chest radiograph was obtained. Findings: Pulmonary vascular prominence is again demonstrated. The heart is enlarged. Mild interstitial edema could be present. Impression: Possible vascular interstitial edema
[2016-07-29 11:46] VITALS: BP 155/71
--- NOTE | 2016-07-29 12:22 | Internal Med Progress Note ---
Subjective Date of Service: July 29, 2016 Physician Name Webster,German Attending Physician Yan Solitario MD Current Medications Medications (Trade) Dose Ordered Sig/Anthony Route PRN Reason Start Time Stop Time Status Last Admin Dose Admin Acetaminophen (Tylenol) 650 mg Q4H PRN ORAL Fever 07/27/16 14:30 08/26/16 14:29 Albuterol/ Ipratropium (DuoNeb 0.5-3(2.5)mg/3ml) 3 ml Q4H PRN HHN Shortness of Breath 07/27/16 14:30 08/01/16 14:29 07/29/16 08:02 Aztreonam 1 gm/ Sodium Chloride 55 ml @ 110 mls/hr EVERY 8 HOURS IVPB 07/28/16 14:00 08/04/16 13:59 07/29/16 05:14 Dextrose (Dextrose 50%) STAT PRN IV Hypoglycemia 07/27/16 14:30 08/26/16 14:29 Diltiazem HCl (Cardizem CD) 180 mg DAILY ORAL 07/29/16 09:00 08/28/16 08:59 07/29/16 08:19 Furosemide (Lasix) 40 mg EVERY 12 HOURS IV 07/28/16 21:00 08/27/16 20:59 07/29/16 08:19 Heparin Sodium (Porcine) (Heparin 5000 units/ml) 5,000 units EVERY 12 HOURS SUBQ 07/28/16 21:00 08/27/16 20:59 07/29/16 08:20 Insulin Aspart (NovoLOG) BEFORE MEALS AND HS SUBQ 07/27/16 16:30 08/26/16 16:29 07/29/16 11:29 Levofloxacin (Levaquin) 100 ml @ 100 mls/hr Q24H IVPB 07/28/16 15:00 08/04/16 14:59 07/28/16 14:14 Morphine Sulfate 2 mg 2 mg Q4H PRN IVP For Pain 07/27/16 15:45 08/03/16 15:44 07/29/16 09:53 Ondansetron HCl (Zofran) 4 mg Q6H PRN IVP Nausea & Vomiting 07/27/16 14:30 08/26/16 14:29 Polyethylene Glycol (Miralax) 17 gm DAILYPRN PRN ORAL Constipation 07/27/16 14:30 08/26/16 14:29 Temazepam (Restoril) 15 mg HSPRN PRN ORAL Insomnia 07/27/16 14:30 08/03/16 14:29 Allergies: Coded Allergies: PENICILLINS (Verified Allergy, Intermediate, Hives, 07/09/16) ROS Limited/Unobtainable: No Constitutional: Reports: no symptoms HEENT: Reports: no symptoms Cardiovascular: Reports: chest pain Respiratory: Reports: cough, shortness of breath Gastrointestinal/Abdominal: Reports: no symptoms Genitourinary: Reports: no symptoms Neurologic/Psychiatric: Reports: no symptoms Subjective 70 YO F with H/O asthma vs COPD admitted with cough and shortness of breath. Cover for Int Med-Dr Solitario. Objective Last Vital Signs Date Time Temp Pulse Resp B/P Pulse Ox O2 Delivery O2 Flow Rate FiO2 07/29/16 11:46 97.7 95 22 155/71 95 Nasal Cannula 2.0 07/29/16 08:05 28 Laboratory Tests Test 07/28/16 19:55 07/29/16 04:30 Troponin I < 0.30 ng/mL (<=0.30) < 0.30 ng/mL (<=0.30) White Blood Count 12.8 K/UL (4.8-10.8) H Red Blood Count 3.38 M/UL (4.20-5.40) L Hemoglobin 9.7 G/DL (12.0-16.0) L Hematocrit 29.3 % (37.0-47.0) L Mean Corpuscular Volume 87 FL (80-99) Mean Corpuscular Hemoglobin 28.7 PG (27.0-31.0) Mean Corpuscular Hemoglobin Concent 33.0 G/DL (32.0-36.0) Red Cell Distribution Width 13.4 % (11.6-14.8) Platelet Count 187 K/UL (150-450) Mean Platelet Volume 8.5 FL (6.5-10.1) Neutrophils (%) (Auto) 77.5 % (45.0-75.0) H Lymphocytes (%) (Auto) 15.6 % (20.0-45.0) L Monocytes (%) (Auto) 5.0 % (1.0-10.0) Eosinophils (%) (Auto) 1.4 % (0.0-3.0) Basophils (%) (Auto) 0.5 % (0.0-2.0) Sodium Level 138 mEQ/L (135-145) Potassium Level 3.8 mEQ/L (3.4-4.9) Chloride Level 91 mEQ/L (98-107) L Carbon Dioxide Level 37 mEQ/L (20-30) H Anion Gap 10 (5-15) Blood Urea Nitrogen 12 mg/dL (7-23) Creatinine 0.9 mg/dL (0.5-0.9) Estimat Glomerular Filtration Rate > 60 mL/min (>60) Glucose Level 138 mg/dL (74-106) H Calcium Level 9.2 mg/dL (8.6-10.2) Total Bilirubin 0.9 mg/dL (0.0-1.2) Aspartate Amino Transf (AST/SGOT) 16 U/L (5-40) Alanine Aminotransferase (ALT/SGPT) 17 U/L (3-33) Alkaline Phosphatase 119 U/L (35-104) H Pro-B-Type Natriuretic Peptide 1590 pg/mL (0-125) H Total Protein 6.8 g/dL (6.6-8.7) Albumin 3.4 g/dL (3.5-5.2) L Globulin 3.4 g/dL Albumin/Globulin Ratio 1.0 (1.0-2.7) Microbiology Date/Time Source Procedure Growth Status 07/27/16 13:05 Blood Blood Culture - Preliminary NO GROWTH AFTER 24 HOURS Resulted 07/27/16 12:49 Blood Blood Culture - Preliminary NO GROWTH AFTER 24 HOURS Resulted 07/28/16 15:15 Sputum Gram Stain - Final Resulted 07/28/16 15:15 Sputum Sputum Culture Pending Resulted 07/27/16 13:50 Nasal Nares MRSA Culture - Final NO METHICILLIN RESISTANT STAPH AUREUS... Complete Intake and Output 07/28/16 07/29/16 19:00 07:00 Intake Total 810 ml 240 ml Output Total 950 ml Balance -140 ml 240 ml Intake Oral 600 ml 240 ml IV Total 210 ml Output Urine Total 950 ml # Voids 2 # Bowel Movements 2 Objective General: obese; alert, cooperative, no distress, appears stated age Head: normocephalic, without obvious abnormality, atraumatic Eyes: conjunctivae/corneas clear. PERRL, EOM's intact Throat: lips, mucosa, and tongue normal. MMM Neck: supple, symmetrical, trachea midline, and no JVD Lungs: Few wheezed bilat; otherwise, clear to auscultation bilaterally Heart: regular rate and rhythm, S1, S2 normal, no murmur, click, rub or gallop Abdomen: soft, non-tender, non-distended, bowel sounds normal; no masses or organomegaly Extremities: extremities normal, atraumatic, no cyanosis or edema Pulses: 2+ and symmetric Skin: skin color, texture, turgor normal; no rashes or lesions Neurologic: grossly normal, no focal deficits Assessment/Plan Problem List: (1) Pleuritic chest pain (2) Edema of both legs (3) Cough (4) Shortness of breath (5) COPD exacerbation Assessment & Plan: See pulmonary note; Continue duoneb. See ID note; cont levaquin and aztreonam. (6) Diabetes mellitus type II, uncontrolled Assessment & Plan: Cont novolog sliding scale. (7) Hypertension Assessment & Plan: Cont cardizem. (8) Morbid obesity (9) CHF (congestive heart failure) Assessment & Plan: LVEF=55-60%. See cardiology note. Status: progressing GERMAN WEBSTER July 29, 2016 12:22
[2016-07-29 12:45] LABS: TROPONIN I < 0.30 ng/mL (<=0.30)
--- NOTE | 2016-07-29 12:56 | Pulmonology Progress Note ---
Assessment/Plan Problems: (1) ACS (acute coronary syndrome) (2) COPD exacerbation (3) CHF (congestive heart failure) (4) Hypertension (5) Diabetes mellitus type II, uncontrolled Assessment/Plan check sputum respiratory treatment sliding scale diabetic diet IV antibiotics ID and cardio consult appreciated on Aztreonam Subjective ROS Limited/Unobtainable: No Interval Events: still coughing, less phlegmn Allergies: Coded Allergies: PENICILLINS (Verified Allergy, Intermediate, Hives, 07/09/16) Objective Last 24 Hour Vital Signs Date Time Temp Pulse Resp B/P Pulse Ox O2 Delivery O2 Flow Rate FiO2 07/29/16 11:46 97.7 95 22 155/71 95 Nasal Cannula 2.0 07/29/16 08:19 68 168/84 07/29/16 08:05 Nasal Cannula 2.0 28 07/29/16 08:04 68 20 Nasal Cannula 2.0 28 07/29/16 08:04 97 Nasal Cannula 2.0 28 07/29/16 08:03 99 18 99 Nasal Cannula 2.0 28 07/29/16 08:02 68 20 97 Nasal Cannula 2.0 28 07/29/16 08:00 104 07/29/16 07:51 99.7 116 20 168/84 96 Nasal Cannula 2.0 07/29/16 04:00 97.6 61 19 144/68 98 Room Air 07/29/16 04:00 94 07/29/16 00:00 98.2 90 20 146/58 95 07/29/16 00:00 104 07/28/16 20:00 109 07/28/16 19:30 Nasal Cannula 2.0 28 07/28/16 19:30 82 20 Nasal Cannula 2.0 28 07/28/16 19:30 97 Nasal Cannula 2.0 28 07/28/16 16:11 97.7 98 22 159/82 98 Nasal Cannula 2.0 07/28/16 16:00 96 Intake and Output 07/28/16 07/29/16 19:00 07:00 Intake Total 810 ml 240 ml Output Total 950 ml Balance -140 ml 240 ml Intake Oral 600 ml 240 ml IV Total 210 ml Output Urine Total 950 ml # Voids 2 # Bowel Movements 2 General Appearance: WD/WN HEENT: normocephalic, atraumatic Respiratory/Chest: chest wall non-tender, lungs clear, normal breath sounds Cardiovascular: normal peripheral pulses, normal rate Abdomen: normal bowel sounds, soft, non tender Extremities: no cyanosis Skin: no rash Neurologic/Psychiatric: front desk coordinator II-XII grossly normal, no motor/sensory deficits Lymphatic: no neck adenopathy Microbiology Date/Time Source Procedure Growth Status 07/27/16 13:05 Blood Blood Culture - Preliminary NO GROWTH AFTER 24 HOURS Resulted 07/27/16 12:49 Blood Blood Culture - Preliminary NO GROWTH AFTER 24 HOURS Resulted 07/28/16 15:15 Sputum Gram Stain - Final Resulted 07/28/16 15:15 Sputum Sputum Culture Pending Resulted 07/27/16 13:50 Nasal Nares MRSA Culture - Final NO METHICILLIN RESISTANT STAPH AUREUS... Complete Laboratory Tests 07/28/16 19:55: Troponin I < 0.30 07/29/16 04:30: Troponin I < 0.30, White Blood Count 12.8H, Red Blood Count 3.38L, Hemoglobin 9.7L, Hematocrit 29.3L, Mean Corpuscular Volume 87, Mean Corpuscular Hemoglobin 28.7, Mean Corpuscular Hemoglobin Concent 33.0, Red Cell Distribution Width 13.4 , Platelet Count 187, Mean Platelet Volume 8.5, Neutrophils (%) (Auto) 77.5H, Lymphocytes (%) (Auto) 15.6L, Monocytes (%) (Auto) 5.0, Eosinophils (%) (Auto) 1.4, Basophils (%) (Auto) 0.5, Sodium Level 138, Potassium Level 3.8, Chloride Level 91L, Carbon Dioxide Level 37H, Anion Gap 10, Blood Urea Nitrogen 12, Creatinine 0.9, Estimat Glomerular Filtration Rate > 60, Glucose Level 138H, Calcium Level 9.2, Total Bilirubin 0.9, Aspartate Amino Transf (AST/SGOT) 16, Alanine Aminotransferase (ALT/SGPT) 17, Alkaline Phosphatase 119H, Pro-B-Type Natriuretic Peptide 1590H, Total Protein 6.8, Albumin 3.4L, Globulin 3.4, Albumin/Globulin Ratio 1.0 07/29/16 12:17: Troponin I < 0.30 Current Medications Medications (Trade) Dose Ordered Sig/Anthony Route PRN Reason Start Time Stop Time Status Last Admin Dose Admin Acetaminophen (Tylenol) 650 mg Q4H PRN ORAL Fever 07/27/16 14:30 08/26/16 14:29 Albuterol/ Ipratropium (DuoNeb 0.5-3(2.5)mg/3ml) 3 ml Q4H PRN HHN Shortness of Breath 07/27/16 14:30 08/01/16 14:29 07/29/16 08:02 Aztreonam 1 gm/ Sodium Chloride 55 ml @ 110 mls/hr EVERY 8 HOURS IVPB 07/28/16 14:00 08/04/16 13:59 07/29/16 05:14 Dextrose (Dextrose 50%) STAT PRN IV Hypoglycemia 07/27/16 14:30 08/26/16 14:29 Diltiazem HCl (Cardizem CD) 180 mg DAILY ORAL 07/29/16 09:00 08/28/16 08:59 07/29/16 08:19 Furosemide (Lasix) 40 mg EVERY 12 HOURS IV 07/28/16 21:00 08/27/16 20:59 07/29/16 08:19 Heparin Sodium (Porcine) (Heparin 5000 units/ml) 5,000 units EVERY 12 HOURS SUBQ 07/28/16 21:00 08/27/16 20:59 07/29/16 08:20 Insulin Aspart (NovoLOG) BEFORE MEALS AND HS SUBQ 07/27/16 16:30 08/26/16 16:29 07/29/16 11:29 Levofloxacin (Levaquin) 100 ml @ 100 mls/hr Q24H IVPB 07/28/16 15:00 08/04/16 14:59 07/28/16 14:14 Morphine Sulfate 2 mg 2 mg Q4H PRN IVP For Pain 07/27/16 15:45 08/03/16 15:44 07/29/16 09:53 Ondansetron HCl (Zofran) 4 mg Q6H PRN IVP Nausea & Vomiting 07/27/16 14:30 08/26/16 14:29 Polyethylene Glycol (Miralax) 17 gm DAILYPRN PRN ORAL Constipation 07/27/16 14:30 08/26/16 14:29 Temazepam (Restoril) 15 mg HSPRN PRN ORAL Insomnia 07/27/16 14:30 08/03/16 14:29 SOPHIA IBARRA July 29, 2016 12:56
[2016-07-29 15:34] VITALS: BP 129/73
--- NOTE | 2016-07-29 15:51 | Cardiac Electrophysiology PN ---
Assessment/Plan Assessment/Plan 1.CHF. Echo showed EF 55-60% . continue Lasix 40 mg IV b.i.d. BNP in the morning. 2. Hypertension. Better on Lasix and Cardizem DC 180. 3. Chronic obstructive pulmonary disease. 4. Morbid obesity. 5. PNA on Abx per Dr Gonzalez Subjective Subjective Comfortable in NAD. No chest pain.On abx. No arrhythmias on tele. Objective Last 24 Hour Vital Signs Date Time Temp Pulse Resp B/P Pulse Ox O2 Delivery O2 Flow Rate FiO2 07/29/16 15:34 97.9 96 22 129/73 94 Nasal Cannula 2.0 07/29/16 12:00 88 07/29/16 11:46 97.7 95 22 155/71 95 Nasal Cannula 2.0 07/29/16 08:19 68 168/84 07/29/16 08:05 Nasal Cannula 2.0 28 07/29/16 08:04 68 20 Nasal Cannula 2.0 28 07/29/16 08:04 97 Nasal Cannula 2.0 28 07/29/16 08:03 99 18 99 Nasal Cannula 2.0 28 07/29/16 08:02 68 20 97 Nasal Cannula 2.0 28 07/29/16 08:00 104 07/29/16 07:51 99.7 116 20 168/84 96 Nasal Cannula 2.0 07/29/16 04:00 97.6 61 19 144/68 98 Room Air 07/29/16 04:00 94 07/29/16 00:00 98.2 90 20 146/58 95 07/29/16 00:00 104 07/28/16 20:00 109 07/28/16 19:30 Nasal Cannula 2.0 28 07/28/16 19:30 82 20 Nasal Cannula 2.0 28 07/28/16 19:30 97 Nasal Cannula 2.0 28 07/28/16 16:11 97.7 98 22 159/82 98 Nasal Cannula 2.0 07/28/16 16:00 96 Intake and Output 07/28/16 07/29/16 19:00 07:00 Intake Total 810 ml 240 ml Output Total 950 ml Balance -140 ml 240 ml Intake Oral 600 ml 240 ml IV Total 210 ml Output Urine Total 950 ml # Voids 2 # Bowel Movements 2 Laboratory Tests Test 07/28/16 19:55 07/29/16 04:30 07/29/16 12:17 Troponin I < 0.30 ng/mL (<=0.30) < 0.30 ng/mL (<=0.30) < 0.30 ng/mL (<=0.30) White Blood Count 12.8 K/UL (4.8-10.8) H Red Blood Count 3.38 M/UL (4.20-5.40) L Hemoglobin 9.7 G/DL (12.0-16.0) L Hematocrit 29.3 % (37.0-47.0) L Mean Corpuscular Volume 87 FL (80-99) Mean Corpuscular Hemoglobin 28.7 PG (27.0-31.0) Mean Corpuscular Hemoglobin Concent 33.0 G/DL (32.0-36.0) Red Cell Distribution Width 13.4 % (11.6-14.8) Platelet Count 187 K/UL (150-450) Mean Platelet Volume 8.5 FL (6.5-10.1) Neutrophils (%) (Auto) 77.5 % (45.0-75.0) H Lymphocytes (%) (Auto) 15.6 % (20.0-45.0) L Monocytes (%) (Auto) 5.0 % (1.0-10.0) Eosinophils (%) (Auto) 1.4 % (0.0-3.0) Basophils (%) (Auto) 0.5 % (0.0-2.0) Sodium Level 138 mEQ/L (135-145) Potassium Level 3.8 mEQ/L (3.4-4.9) Chloride Level 91 mEQ/L (98-107) L Carbon Dioxide Level 37 mEQ/L (20-30) H Anion Gap 10 (5-15) Blood Urea Nitrogen 12 mg/dL (7-23) Creatinine 0.9 mg/dL (0.5-0.9) Estimat Glomerular Filtration Rate > 60 mL/min (>60) Glucose Level 138 mg/dL (74-106) H Calcium Level 9.2 mg/dL (8.6-10.2) Total Bilirubin 0.9 mg/dL (0.0-1.2) Aspartate Amino Transf (AST/SGOT) 16 U/L (5-40) Alanine Aminotransferase (ALT/SGPT) 17 U/L (3-33) Alkaline Phosphatase 119 U/L (35-104) H Pro-B-Type Natriuretic Peptide 1590 pg/mL (0-125) H Total Protein 6.8 g/dL (6.6-8.7) Albumin 3.4 g/dL (3.5-5.2) L Globulin 3.4 g/dL Albumin/Globulin Ratio 1.0 (1.0-2.7) Microbiology Date/Time Source Procedure Growth Status 07/27/16 13:05 Blood Blood Culture - Preliminary NO GROWTH AFTER 24 HOURS Resulted 07/27/16 12:49 Blood Blood Culture - Preliminary NO GROWTH AFTER 24 HOURS Resulted 07/28/16 15:15 Sputum Gram Stain - Final Resulted 07/28/16 15:15 Sputum Sputum Culture Pending Resulted 07/27/16 13:50 Nasal Nares MRSA Culture - Final NO METHICILLIN RESISTANT STAPH AUREUS... Complete Objective HEAD AND NECK: Shows mild JVD. LUNGS: Decreased breath sounds. There are scattered wheezes. CARDIOVASCULAR: Shows regular S1 and S2 with no gallop or murmur. ABDOMEN: Obese. EXTREMITIES: With 2+ pitting edema. STEF GIBBS July 29, 2016 15:51
--- NOTE | 2016-07-29 18:54 | Infectious Diseases Prog Note ---
Assessment/Plan Assessment/Plan A: Leukocytosis improving CAPn versus bronchitis Chest x-ray: Possible vascular interstitial edema HTN CHF COPD Osteoarthritis Diabetes PLAN: Cont Levaquin and aztreonam d# 2 Monitor CBC Monitor BMP Monitor cultures (blood, sputum). Monitor chest x-ray Subjective Allergies: Coded Allergies: PENICILLINS (Verified Allergy, Intermediate, Hives, 07/09/16) Subjective cough Objective Vital Signs Last 24 Hour Vital Signs Date Time Temp Pulse Resp B/P Pulse Ox O2 Delivery O2 Flow Rate FiO2 07/29/16 15:34 97.9 96 22 129/73 94 Nasal Cannula 2.0 07/29/16 12:00 88 07/29/16 11:46 97.7 95 22 155/71 95 Nasal Cannula 2.0 07/29/16 08:19 68 168/84 07/29/16 08:05 Nasal Cannula 2.0 28 07/29/16 08:04 68 20 Nasal Cannula 2.0 28 07/29/16 08:04 97 Nasal Cannula 2.0 28 07/29/16 08:03 99 18 99 Nasal Cannula 2.0 28 07/29/16 08:02 68 20 97 Nasal Cannula 2.0 28 07/29/16 08:00 104 07/29/16 07:51 99.7 116 20 168/84 96 Nasal Cannula 2.0 07/29/16 04:00 97.6 61 19 144/68 98 Room Air 07/29/16 04:00 94 07/29/16 00:00 98.2 90 20 146/58 95 07/29/16 00:00 104 07/28/16 20:00 109 07/28/16 19:30 Nasal Cannula 2.0 28 07/28/16 19:30 82 20 Nasal Cannula 2.0 28 07/28/16 19:30 97 Nasal Cannula 2.0 28 Height (Feet): 5 Height (Inches): 3.00 Weight (Pounds): 249 HEENT: mucous membranes moist Respiratory/Chest: normal breath sounds Cardiovascular: no gallop/murmur Microbiology Date/Time Source Procedure Growth Status 07/27/16 13:05 Blood Blood Culture - Preliminary NO GROWTH AFTER 24 HOURS Resulted 07/27/16 12:49 Blood Blood Culture - Preliminary NO GROWTH AFTER 24 HOURS Resulted 07/28/16 15:15 Sputum Gram Stain - Final Resulted 07/28/16 15:15 Sputum Sputum Culture Pending Resulted 07/27/16 13:50 Nasal Nares MRSA Culture - Final NO METHICILLIN RESISTANT STAPH AUREUS... Complete Laboratory Tests Test 07/28/16 19:55 07/29/16 04:30 07/29/16 12:17 Troponin I < 0.30 ng/mL (<=0.30) < 0.30 ng/mL (<=0.30) < 0.30 ng/mL (<=0.30) White Blood Count 12.8 K/UL (4.8-10.8) H Red Blood Count 3.38 M/UL (4.20-5.40) L Hemoglobin 9.7 G/DL (12.0-16.0) L Hematocrit 29.3 % (37.0-47.0) L Mean Corpuscular Volume 87 FL (80-99) Mean Corpuscular Hemoglobin 28.7 PG (27.0-31.0) Mean Corpuscular Hemoglobin Concent 33.0 G/DL (32.0-36.0) Red Cell Distribution Width 13.4 % (11.6-14.8) Platelet Count 187 K/UL (150-450) Mean Platelet Volume 8.5 FL (6.5-10.1) Neutrophils (%) (Auto) 77.5 % (45.0-75.0) H Lymphocytes (%) (Auto) 15.6 % (20.0-45.0) L Monocytes (%) (Auto) 5.0 % (1.0-10.0) Eosinophils (%) (Auto) 1.4 % (0.0-3.0) Basophils (%) (Auto) 0.5 % (0.0-2.0) Sodium Level 138 mEQ/L (135-145) Potassium Level 3.8 mEQ/L (3.4-4.9) Chloride Level 91 mEQ/L (98-107) L Carbon Dioxide Level 37 mEQ/L (20-30) H Anion Gap 10 (5-15) Blood Urea Nitrogen 12 mg/dL (7-23) Creatinine 0.9 mg/dL (0.5-0.9) Estimat Glomerular Filtration Rate > 60 mL/min (>60) Glucose Level 138 mg/dL (74-106) H Calcium Level 9.2 mg/dL (8.6-10.2) Total Bilirubin 0.9 mg/dL (0.0-1.2) Aspartate Amino Transf (AST/SGOT) 16 U/L (5-40) Alanine Aminotransferase (ALT/SGPT) 17 U/L (3-33) Alkaline Phosphatase 119 U/L (35-104) H Pro-B-Type Natriuretic Peptide 1590 pg/mL (0-125) H Total Protein 6.8 g/dL (6.6-8.7) Albumin 3.4 g/dL (3.5-5.2) L Globulin 3.4 g/dL Albumin/Globulin Ratio 1.0 (1.0-2.7) Current Medications Medications (Trade) Dose Ordered Sig/Anthony Route PRN Reason Start Time Stop Time Status Last Admin Dose Admin Acetaminophen (Tylenol) 650 mg Q4H PRN ORAL Fever 07/27/16 14:30 08/26/16 14:29 Albuterol/ Ipratropium (DuoNeb 0.5-3(2.5)mg/3ml) 3 ml Q4H PRN HHN Shortness of Breath 07/27/16 14:30 08/01/16 14:29 07/29/16 08:02 Aztreonam 1 gm/ Sodium Chloride 55 ml @ 110 mls/hr EVERY 8 HOURS IVPB 07/28/16 14:00 08/04/16 13:59 07/29/16 13:58 Dextrose (Dextrose 50%) STAT PRN IV Hypoglycemia 07/27/16 14:30 08/26/16 14:29 Diltiazem HCl (Cardizem CD) 180 mg DAILY ORAL 07/29/16 09:00 08/28/16 08:59 07/29/16 08:19 Furosemide (Lasix) 40 mg EVERY 12 HOURS IV 07/28/16 21:00 08/27/16 20:59 07/29/16 08:19 Heparin Sodium (Porcine) (Heparin 5000 units/ml) 5,000 units EVERY 12 HOURS SUBQ 07/28/16 21:00 08/27/16 20:59 07/29/16 08:20 Insulin Aspart (NovoLOG) BEFORE MEALS AND HS SUBQ 07/27/16 16:30 08/26/16 16:29 07/29/16 16:40 Levofloxacin (Levaquin) 100 ml @ 100 mls/hr Q24H IVPB 07/28/16 15:00 08/04/16 14:59 07/29/16 14:41 Morphine Sulfate 2 mg 2 mg Q4H PRN IVP For Pain 07/27/16 15:45 08/03/16 15:44 07/29/16 18:03 Ondansetron HCl (Zofran) 4 mg Q6H PRN IVP Nausea & Vomiting 07/27/16 14:30 08/26/16 14:29 Polyethylene Glycol (Miralax) 17 gm DAILYPRN PRN ORAL Constipation 07/27/16 14:30 08/26/16 14:29 Temazepam (Restoril) 15 mg HSPRN PRN ORAL Insomnia 07/27/16 14:30 08/03/16 14:29 GAY SANTOS M.D. July 29, 2016 18:54
[2016-07-29 20:00] VITALS: BP 108/57
[2016-07-29] MEDS ORDERED: Furosemide 40mg tab ORAL SCH (20:00)
[2016-07-29] MEDS ORDERED: Miralax 17gm pkt ORAL PRN (20:30)
[2016-07-29 21:28] LABS: TROPONIN I < 0.30 ng/mL (<=0.30)
[2016-07-30] VITALS: BP 128/79
[2016-07-30] MEDS: DuoNeb 0.5-3(2.5)mg/3ml neb HHN PRN ×3 (02:42→21:28)
[2016-07-30] MEDS: Morphine Sulfate 2mg/ml Inj IVP PRN ×4 (03:26→20:08)
[2016-07-30 04:00] VITALS: BP 139/76
[2016-07-30 04:28] LABS: BASOPHILS % (AUTO) 0.5 % (0.0-2.0); EOSINOPHILS % (AUTO) 1.7 % (0.0-3.0); LYMPHOCYTES % (AUTO) 19.8 % (20.0-45.0); MEAN CORPUSCULAR HEMOGLOBIN 28.1 PG (27.0-31.0); MEAN CORPUSCULAR HGB CONC 33.1 G/DL (32.0-36.0); MEAN CORPUSCULAR VOLUME 85 FL (80-99); MEAN PLATELET VOLUME 7.7 FL (6.5-10.1); MONOCYTES % (AUTO) 6.2 % (1.0-10.0); NEUTROPHILS % (AUTO) 71.7 % (45.0-75.0); PLATELET COUNT 249 K/UL (150-450); RED BLOOD COUNT 3.54 M/UL (4.20-5.40); RED CELL DISTRIBUTION WIDTH 13.4 % (11.6-14.8)
[2016-07-30 04:43] LABS: TROPONIN I < 0.30 ng/mL (<=0.30)
[2016-07-30 04:45] LABS: CALCIUM 9.3 mg/dL (8.6-10.2); CARBON DIOXIDE 35 mEQ/L (20-30); GLOMERULAR FILTRATION RATE > 60 mL/min (>60); HEMOLYSIS 3; POTASSIUM 5.1 mEQ/L (3.4-4.9)
[2016-07-30 05:05] LABS: ANION GAP 14 (5-15); CHLORIDE 89 mEQ/L (98-107); SODIUM 138 mEQ/L (135-145)
[2016-07-30] MEDS: Aztreonam Inj 1 GM in NS 55 ML IVPB SCH ×3 (06:00→21:36)
[2016-07-30] MEDS: NovoLOG Insulin Flexpen SUBQ SCH ×4 (06:47→21:00)
[2016-07-30] MEDS ORDERED: Sodium Polystyrene Sulfonate 15gm Powder ORAL ONE (08:00)
[2016-07-30 08:08] VITALS: BP 142/71
[2016-07-30] MEDS: Aspirin Baby 81mg ORAL SCH (08:42)
[2016-07-30] MEDS: Diltiazem CD 180mg cap ORAL SCH (08:42)
[2016-07-30] MEDS: Montelukast 10mg tablet ORAL SCH (08:42)
[2016-07-30] MEDS: Heparin 5000 units/ml inj SUBQ SCH ×2 (08:45→21:33)
[2016-07-30 12:17] VITALS: BP 138/82
[2016-07-30 12:34] LABS: TROPONIN I < 0.30 ng/mL (<=0.30)
--- NOTE | 2016-07-30 12:46 | Infectious Diseases Prog Note ---
Assessment/Plan Assessment/Plan A: Leukocytosis improving CAPn versus bronchitis Chest x-ray: Possible vascular interstitial edema HTN CHF COPD Osteoarthritis Diabetes PLAN: Cont Levaquin and aztreonam d# 3 / 5 , upon DC will cont w Levaquin PO to complete the course Monitor CBC Monitor BMP Monitor cultures (blood, sputum). Monitor chest x-ray Subjective Allergies: Coded Allergies: PENICILLINS (Verified Allergy, Intermediate, Hives, 07/09/16) Subjective cough + Objective Vital Signs Last 24 Hour Vital Signs Date Time Temp Pulse Resp B/P Pulse Ox O2 Delivery O2 Flow Rate FiO2 07/30/16 12:17 97.3 99 16 138/82 95 Nasal Cannula 07/30/16 08:42 98 142/71 07/30/16 08:08 98.1 98 15 142/71 94 Nasal Cannula 07/30/16 07:40 78 20 98 Nasal Cannula 2.0 07/30/16 07:30 101 20 97 Nasal Cannula 2.0 07/30/16 07:27 101 22 Nasal Cannula 2.0 07/30/16 07:24 97 Nasal Cannula 2.0 07/30/16 07:24 Nasal Cannula 2.0 07/30/16 04:16 98.1 07/30/16 04:00 97.7 101 20 139/76 92 Nasal Cannula 2.0 07/30/16 02:44 89 20 99 Nasal Cannula 2.0 28 07/30/16 02:43 82 18 97 Nasal Cannula 2.0 28 07/30/16 00:00 98.1 58 22 128/79 95 Room Air 07/29/16 22:03 97 22 99 Nasal Cannula 2.0 28 07/29/16 21:52 76 22 97 Nasal Cannula 2.0 28 07/29/16 20:00 97.9 92 20 108/57 93 Nasal Cannula 2.0 07/29/16 19:56 Nasal Cannula 2.0 28 07/29/16 19:56 96 Nasal Cannula 2.0 28 07/29/16 19:55 81 20 Nasal Cannula 2.0 28 07/29/16 15:34 97.9 96 22 129/73 94 Nasal Cannula 2.0 Height (Feet): 5 Height (Inches): 3.00 Weight (Pounds): 249 HEENT: anicteric Respiratory/Chest: decreased breath sounds Cardiovascular: regular rhythm Abdomen: soft, non tender Extremities: no cyanosis Microbiology Date/Time Source Procedure Growth Status 07/27/16 13:05 Blood Blood Culture - Preliminary NO GROWTH AFTER 48 HOURS Resulted 07/27/16 12:49 Blood Blood Culture - Preliminary NO GROWTH AFTER 48 HOURS Resulted 07/28/16 15:15 Sputum Gram Stain - Final Complete 07/28/16 15:15 Sputum Sputum Culture - Final NORMAL UPPER RESPIRATORY JONATHAN PRESENT Complete 07/27/16 13:50 Nasal Nares MRSA Culture - Final NO METHICILLIN RESISTANT STAPH AUREUS... Complete Laboratory Tests Test 07/29/16 20:00 07/30/16 04:00 07/30/16 12:00 Troponin I < 0.30 ng/mL (<=0.30) < 0.30 ng/mL (<=0.30) < 0.30 ng/mL (<=0.30) White Blood Count 11.0 K/UL (4.8-10.8) H Red Blood Count 3.54 M/UL (4.20-5.40) L Hemoglobin 10.0 G/DL (12.0-16.0) L Hematocrit 30.1 % (37.0-47.0) L Mean Corpuscular Volume 85 FL (80-99) Mean Corpuscular Hemoglobin 28.1 PG (27.0-31.0) Mean Corpuscular Hemoglobin Concent 33.1 G/DL (32.0-36.0) Red Cell Distribution Width 13.4 % (11.6-14.8) Platelet Count 249 K/UL (150-450) Mean Platelet Volume 7.7 FL (6.5-10.1) Neutrophils (%) (Auto) 71.7 % (45.0-75.0) Lymphocytes (%) (Auto) 19.8 % (20.0-45.0) L Monocytes (%) (Auto) 6.2 % (1.0-10.0) Eosinophils (%) (Auto) 1.7 % (0.0-3.0) Basophils (%) (Auto) 0.5 % (0.0-2.0) Sodium Level 138 mEQ/L (135-145) Potassium Level 5.1 mEQ/L (3.4-4.9) H Chloride Level 89 mEQ/L (98-107) L Carbon Dioxide Level 35 mEQ/L (20-30) H Anion Gap 14 (5-15) Blood Urea Nitrogen 11 mg/dL (7-23) Creatinine 1.0 mg/dL (0.5-0.9) H Estimat Glomerular Filtration Rate > 60 mL/min (>60) Glucose Level 141 mg/dL (74-106) H Calcium Level 9.3 mg/dL (8.6-10.2) Pro-B-Type Natriuretic Peptide 1265 pg/mL (0-125) H Current Medications Medications (Trade) Dose Ordered Sig/Anthony Route PRN Reason Start Time Stop Time Status Last Admin Dose Admin Acetaminophen (Tylenol) 650 mg Q4H PRN ORAL Fever 07/29/16 20:30 08/28/16 20:29 Albuterol/ Ipratropium (DuoNeb 0.5-3(2.5)mg/3ml) 3 ml Q4H PRN HHN Shortness of Breath 07/29/16 20:30 08/03/16 20:29 07/30/16 07:35 Aspirin (ASA) 81 mg DAILY ORAL 07/30/16 09:00 08/29/16 08:59 07/30/16 08:42 Aztreonam 1 gm/ Sodium Chloride 55 ml @ 110 mls/hr EVERY 8 HOURS IVPB 07/29/16 22:00 08/05/16 21:59 07/30/16 06:00 Dextrose (Dextrose 50%) STAT PRN IV Hypoglycemia 07/29/16 20:30 08/28/16 20:29 Diltiazem HCl (Cardizem CD) 180 mg DAILY ORAL 07/30/16 09:00 08/29/16 08:59 07/30/16 08:42 Furosemide (Lasix) 40 mg EVERY 12 HOURS IV 07/29/16 21:00 08/28/16 20:59 07/30/16 08:43 Heparin Sodium (Porcine) (Heparin 5000 units/ml) 5,000 units EVERY 12 HOURS SUBQ 07/29/16 21:00 08/28/16 20:59 07/30/16 08:45 Insulin Aspart (NovoLOG) BEFORE MEALS AND HS SUBQ 07/29/16 21:00 08/28/16 20:59 07/30/16 12:05 Levofloxacin (Levaquin) 100 ml @ 100 mls/hr Q24H IVPB 07/30/16 15:00 08/06/16 14:59 Montelukast Sodium 10 mg 10 mg DAILY ORAL 07/30/16 09:00 08/29/16 08:59 07/30/16 08:42 Morphine Sulfate (Morphine Sulfate) 2 mg Q4H PRN IVP For Pain 07/29/16 20:30 08/05/16 20:29 07/30/16 10:34 Ondansetron HCl (Zofran) 4 mg Q6H PRN IVP Nausea & Vomiting 07/29/16 20:30 08/28/16 20:29 Polyethylene Glycol (Miralax) 17 gm DAILYPRN PRN ORAL Constipation 07/29/16 20:30 08/28/16 20:29 Temazepam (Restoril) 15 mg HSPRN PRN ORAL Insomnia 07/29/16 20:30 08/05/16 20:29 GAY SANTOS M.D. July 30, 2016 12:46
--- NOTE | 2016-07-30 15:35 | Cardiac Electrophysiology PN ---
Assessment/Plan Assessment/Plan 1. CHF due to DD. Echo showed EF 55-60% . Continue Lasix 40 mg IV b.i.d. BNP 1265! 2. Hypertension. Better on Lasix and Cardizem DC 180. 3. Chronic obstructive pulmonary disease. 4. Morbid obesity. 5. PNA on Abx per Dr Carlos SALDANA RN Subjective Subjective Comfortable in NAD. No chest pain.Complains of cough and productive phlegm.On abx.Off tele now. Objective Last 24 Hour Vital Signs Date Time Temp Pulse Resp B/P Pulse Ox O2 Delivery O2 Flow Rate FiO2 07/30/16 12:17 97.3 99 16 138/82 95 Nasal Cannula 07/30/16 08:42 98 142/71 07/30/16 08:08 98.1 98 15 142/71 94 Nasal Cannula 07/30/16 07:40 78 20 98 Nasal Cannula 2.0 07/30/16 07:30 101 20 97 Nasal Cannula 2.0 07/30/16 07:27 101 22 Nasal Cannula 2.0 07/30/16 07:24 97 Nasal Cannula 2.0 07/30/16 07:24 Nasal Cannula 2.0 07/30/16 04:16 98.1 07/30/16 04:00 97.7 101 20 139/76 92 Nasal Cannula 2.0 07/30/16 02:44 89 20 99 Nasal Cannula 2.0 28 07/30/16 02:43 82 18 97 Nasal Cannula 2.0 28 07/30/16 00:00 98.1 58 22 128/79 95 Room Air 07/29/16 22:03 97 22 99 Nasal Cannula 2.0 28 07/29/16 21:52 76 22 97 Nasal Cannula 2.0 28 07/29/16 20:00 97.9 92 20 108/57 93 Nasal Cannula 2.0 07/29/16 19:56 Nasal Cannula 2.0 28 07/29/16 19:56 96 Nasal Cannula 2.0 28 07/29/16 19:55 81 20 Nasal Cannula 2.0 28 07/29/16 15:34 97.9 96 22 129/73 94 Nasal Cannula 2.0 Intake and Output 07/29/16 07/30/16 19:00 07:00 Intake Total 690 ml Output Total 1200 ml Balance -510 ml Intake Oral 480 ml IV Total 210 ml Output Urine Total 1200 ml # Voids 3 # Bowel Movements 1 2 Laboratory Tests Test 07/29/16 20:00 07/30/16 04:00 07/30/16 12:00 Troponin I < 0.30 ng/mL (<=0.30) < 0.30 ng/mL (<=0.30) < 0.30 ng/mL (<=0.30) White Blood Count 11.0 K/UL (4.8-10.8) H Red Blood Count 3.54 M/UL (4.20-5.40) L Hemoglobin 10.0 G/DL (12.0-16.0) L Hematocrit 30.1 % (37.0-47.0) L Mean Corpuscular Volume 85 FL (80-99) Mean Corpuscular Hemoglobin 28.1 PG (27.0-31.0) Mean Corpuscular Hemoglobin Concent 33.1 G/DL (32.0-36.0) Red Cell Distribution Width 13.4 % (11.6-14.8) Platelet Count 249 K/UL (150-450) Mean Platelet Volume 7.7 FL (6.5-10.1) Neutrophils (%) (Auto) 71.7 % (45.0-75.0) Lymphocytes (%) (Auto) 19.8 % (20.0-45.0) L Monocytes (%) (Auto) 6.2 % (1.0-10.0) Eosinophils (%) (Auto) 1.7 % (0.0-3.0) Basophils (%) (Auto) 0.5 % (0.0-2.0) Sodium Level 138 mEQ/L (135-145) Potassium Level 5.1 mEQ/L (3.4-4.9) H Chloride Level 89 mEQ/L (98-107) L Carbon Dioxide Level 35 mEQ/L (20-30) H Anion Gap 14 (5-15) Blood Urea Nitrogen 11 mg/dL (7-23) Creatinine 1.0 mg/dL (0.5-0.9) H Estimat Glomerular Filtration Rate > 60 mL/min (>60) Glucose Level 141 mg/dL (74-106) H Calcium Level 9.3 mg/dL (8.6-10.2) Pro-B-Type Natriuretic Peptide 1265 pg/mL (0-125) H Microbiology Date/Time Source Procedure Growth Status 07/28/16 15:15 Sputum Gram Stain - Final Complete 07/28/16 15:15 Sputum Sputum Culture - Final NORMAL UPPER RESPIRATORY JONATHAN PRESENT Complete Objective HEAD AND NECK: Shows mild JVD. LUNGS: Decreased breath sounds with scattered wheezes. CARDIOVASCULAR: Shows regular S1 and S2 with no gallop or murmur. ABDOMEN: Obese. EXTREMITIES: With 2+ pitting edema. STEF GIBBS July 30, 2016 15:35
--- NOTE | 2016-07-30 15:58 | Pulmonology Progress Note ---
Assessment/Plan Problems: (1) ACS (acute coronary syndrome) (2) COPD exacerbation (3) CHF (congestive heart failure) (4) Hypertension (5) Diabetes mellitus type II, uncontrolled Assessment/Plan sputum showing normal ozzie respiratory treatment sliding scale diabetic diet IV antibiotics ID and cardio consult appreciated on Aztreonam dc probably in am with oral abx Subjective ROS Limited/Unobtainable: No Interval Events: still coughing, less phlegmn Allergies: Coded Allergies: PENICILLINS (Verified Allergy, Intermediate, Hives, 07/09/16) Objective Last 24 Hour Vital Signs Date Time Temp Pulse Resp B/P Pulse Ox O2 Delivery O2 Flow Rate FiO2 07/30/16 12:17 97.3 99 16 138/82 95 Nasal Cannula 07/30/16 08:42 98 142/71 07/30/16 08:08 98.1 98 15 142/71 94 Nasal Cannula 07/30/16 07:40 78 20 98 Nasal Cannula 2.0 07/30/16 07:30 101 20 97 Nasal Cannula 2.0 07/30/16 07:27 101 22 Nasal Cannula 2.0 07/30/16 07:24 97 Nasal Cannula 2.0 07/30/16 07:24 Nasal Cannula 2.0 07/30/16 04:16 98.1 07/30/16 04:00 97.7 101 20 139/76 92 Nasal Cannula 2.0 07/30/16 02:44 89 20 99 Nasal Cannula 2.0 28 07/30/16 02:43 82 18 97 Nasal Cannula 2.0 28 07/30/16 00:00 98.1 58 22 128/79 95 Room Air 07/29/16 22:03 97 22 99 Nasal Cannula 2.0 28 07/29/16 21:52 76 22 97 Nasal Cannula 2.0 28 07/29/16 20:00 97.9 92 20 108/57 93 Nasal Cannula 2.0 07/29/16 19:56 Nasal Cannula 2.0 28 07/29/16 19:56 96 Nasal Cannula 2.0 28 07/29/16 19:55 81 20 Nasal Cannula 2.0 28 Intake and Output 07/29/16 07/30/16 19:00 07:00 Intake Total 690 ml Output Total 1200 ml Balance -510 ml Intake Oral 480 ml IV Total 210 ml Output Urine Total 1200 ml # Voids 3 # Bowel Movements 1 2 General Appearance: WD/WN Respiratory/Chest: chest wall non-tender, lungs clear Cardiovascular: normal peripheral pulses, normal rate Abdomen: normal bowel sounds, soft, non tender Genitourinary: normal external genitalia Extremities: no cyanosis Skin: no rash Neurologic/Psychiatric: datacap developer II-XII grossly normal, no motor/sensory deficits Lymphatic: no neck adenopathy Microbiology Date/Time Source Procedure Growth Status 07/28/16 15:15 Sputum Gram Stain - Final Complete 07/28/16 15:15 Sputum Sputum Culture - Final NORMAL UPPER RESPIRATORY OZZIE PRESENT Complete Laboratory Tests 07/29/16 20:00: Troponin I < 0.30 07/30/16 04:00: Troponin I < 0.30, White Blood Count 11.0H, Red Blood Count 3.54L, Hemoglobin 10.0L, Hematocrit 30.1L, Mean Corpuscular Volume 85, Mean Corpuscular Hemoglobin 28.1, Mean Corpuscular Hemoglobin Concent 33.1, Red Cell Distribution Width 13.4, Platelet Count 249, Mean Platelet Volume 7.7, Neutrophils (%) (Auto) 71.7, Lymphocytes (%) (Auto) 19.8L, Monocytes (%) (Auto) 6.2, Eosinophils (%) (Auto) 1.7, Basophils (%) (Auto) 0.5, Sodium Level 138, Potassium Level 5.1H, Chloride Level 89L, Carbon Dioxide Level 35H, Anion Gap 14 , Blood Urea Nitrogen 11, Creatinine 1.0H, Estimat Glomerular Filtration Rate > 60, Glucose Level 141H, Calcium Level 9.3, Pro-B-Type Natriuretic Peptide 1265H 07/30/16 12:00: Troponin I < 0.30 Current Medications Medications (Trade) Dose Ordered Sig/Anthony Route PRN Reason Start Time Stop Time Status Last Admin Dose Admin Acetaminophen (Tylenol) 650 mg Q4H PRN ORAL Fever 07/29/16 20:30 08/28/16 20:29 Albuterol/ Ipratropium (DuoNeb 0.5-3(2.5)mg/3ml) 3 ml Q4H PRN HHN Shortness of Breath 07/29/16 20:30 08/03/16 20:29 07/30/16 07:35 Aspirin (ASA) 81 mg DAILY ORAL 07/30/16 09:00 08/29/16 08:59 07/30/16 08:42 Aztreonam 1 gm/ Sodium Chloride 55 ml @ 110 mls/hr EVERY 8 HOURS IVPB 07/29/16 22:00 08/05/16 21:59 07/30/16 13:34 Dextrose (Dextrose 50%) STAT PRN IV Hypoglycemia 07/29/16 20:30 08/28/16 20:29 Diltiazem HCl (Cardizem CD) 180 mg DAILY ORAL 07/30/16 09:00 08/29/16 08:59 07/30/16 08:42 Furosemide (Lasix) 40 mg EVERY 12 HOURS IV 07/29/16 21:00 08/28/16 20:59 07/30/16 08:43 Heparin Sodium (Porcine) (Heparin 5000 units/ml) 5,000 units EVERY 12 HOURS SUBQ 07/29/16 21:00 08/28/16 20:59 07/30/16 08:45 Insulin Aspart (NovoLOG) BEFORE MEALS AND HS SUBQ 07/29/16 21:00 08/28/16 20:59 07/30/16 12:05 Levofloxacin (Levaquin) 100 ml @ 100 mls/hr Q24H IVPB 07/30/16 15:00 08/06/16 14:59 07/30/16 14:33 Montelukast Sodium 10 mg 10 mg DAILY ORAL 07/30/16 09:00 08/29/16 08:59 07/30/16 08:42 Morphine Sulfate (Morphine Sulfate) 2 mg Q4H PRN IVP For Pain 07/29/16 20:30 08/05/16 20:29 07/30/16 15:37 Ondansetron HCl (Zofran) 4 mg Q6H PRN IVP Nausea & Vomiting 07/29/16 20:30 08/28/16 20:29 Polyethylene Glycol (Miralax) 17 gm DAILYPRN PRN ORAL Constipation 07/29/16 20:30 08/28/16 20:29 Temazepam (Restoril) 15 mg HSPRN PRN ORAL Insomnia 07/29/16 20:30 08/05/16 20:29 SOPHIA IBARRA July 30, 2016 15:58
[2016-07-30 16:14] VITALS: BP 147/80
--- NOTE | 2016-07-30 17:23 | Cardiology Report ---
APPROVED REPORT EXAM: Two-dimensional and M-mode echocardiogram with Doppler and color Doppler. INDICATION Left Ventricular Function. M-Mode DIMENSIONS IVSd1.1 (0.7-1.1cm)Left Atrium (MM)4.2 (1.6-4.0cm) LVDd4.9 (3.5-5.6cm)Aortic Root3.1 (2.0-3.7cm) PWd1.1 (0.7-1.1cm)Aortic Cusp Exc.1.8 (1.5-2.0cm) LVDs3.5 (2.5-4.0cm) PWs1.7 cm Technically difficult study due to poor parasternal acoustic windows, and patient coughing. M-mode measurements of left ventricle not obtainable due to cardiac position. Left ventricular ejection fraction estimated to be 55-60 %. Study quality precludes accurate assessment of regional wall motion. No evidence of left ventricular hypertrophy. No evidence of pericardial effusion. Anterior Echo-free space, may be due to pericardial fat or effusion. All other cardiac chamber sizes are within normal limits. Mild Left atrial enlargement. Focal aortic valve sclerosis with adequate cusp excursion. Thickened mitral valve leaflets with normal excursion. Mitral annulus and aortic root calcification. Normal pulmonic valve structure. Normal tricuspid valve structure. IVC at normal size with physiologic collapse. RA pressure 10mmHg. A color flow and spectral Doppler study was performed and revealed: No aortic regurgitation.. Mild, mitral regurgitation. Mitral diastolic dysfunction grade I. Mild tricuspid regurgitation. Tricuspid systolic velocities suggests peak right ventricular systolic pressure of 38mmHg No Pulmonic regurgitation present.
--- NOTE | 2016-07-30 17:35 | Internal Med Progress Note ---
Subjective Date of Service: July 30, 2016 Physician Name Webster,German Attending Physician Yan Solitario MD Current Medications Medications (Trade) Dose Ordered Sig/Anthony Route PRN Reason Start Time Stop Time Status Last Admin Dose Admin Acetaminophen (Tylenol) 650 mg Q4H PRN ORAL Fever 07/29/16 20:30 08/28/16 20:29 Albuterol/ Ipratropium (DuoNeb 0.5-3(2.5)mg/3ml) 3 ml Q4H PRN HHN Shortness of Breath 07/29/16 20:30 08/03/16 20:29 07/30/16 07:35 Aspirin (ASA) 81 mg DAILY ORAL 07/30/16 09:00 08/29/16 08:59 07/30/16 08:42 Aztreonam 1 gm/ Sodium Chloride 55 ml @ 110 mls/hr EVERY 8 HOURS IVPB 07/29/16 22:00 08/05/16 21:59 07/30/16 13:34 Dextrose (Dextrose 50%) STAT PRN IV Hypoglycemia 07/29/16 20:30 08/28/16 20:29 Diltiazem HCl (Cardizem CD) 180 mg DAILY ORAL 07/30/16 09:00 08/29/16 08:59 07/30/16 08:42 Furosemide (Lasix) 40 mg EVERY 12 HOURS IV 07/29/16 21:00 08/28/16 20:59 07/30/16 08:43 Heparin Sodium (Porcine) (Heparin 5000 units/ml) 5,000 units EVERY 12 HOURS SUBQ 07/29/16 21:00 08/28/16 20:59 07/30/16 08:45 Insulin Aspart (NovoLOG) BEFORE MEALS AND HS SUBQ 07/29/16 21:00 08/28/16 20:59 07/30/16 17:04 Levofloxacin (Levaquin) 100 ml @ 100 mls/hr Q24H IVPB 07/30/16 15:00 08/06/16 14:59 07/30/16 14:33 Montelukast Sodium 10 mg 10 mg DAILY ORAL 07/30/16 09:00 08/29/16 08:59 07/30/16 08:42 Morphine Sulfate (Morphine Sulfate) 2 mg Q4H PRN IVP For Pain 07/29/16 20:30 08/05/16 20:29 07/30/16 15:37 Ondansetron HCl (Zofran) 4 mg Q6H PRN IVP Nausea & Vomiting 07/29/16 20:30 08/28/16 20:29 Polyethylene Glycol (Miralax) 17 gm DAILYPRN PRN ORAL Constipation 07/29/16 20:30 08/28/16 20:29 Temazepam (Restoril) 15 mg HSPRN PRN ORAL Insomnia 07/29/16 20:30 08/05/16 20:29 Allergies: Coded Allergies: PENICILLINS (Verified Allergy, Intermediate, Hives, 07/09/16) ROS Limited/Unobtainable: No Constitutional: Reports: no symptoms HEENT: Reports: no symptoms Cardiovascular: Reports: no symptoms Respiratory: Reports: cough, shortness of breath Gastrointestinal/Abdominal: Reports: no symptoms Genitourinary: Reports: no symptoms Neurologic/Psychiatric: Reports: no symptoms Subjective 70 YO F with H/O asthma vs COPD admitted with cough and shortness of breath. Cover for Int Med-Dr Solitario. Objective Last Vital Signs Date Time Temp Pulse Resp B/P Pulse Ox O2 Delivery O2 Flow Rate FiO2 07/30/16 16:14 97.0 95 16 147/80 95 Nasal Cannula 07/30/16 07:40 2.0 07/30/16 02:44 28 Laboratory Tests Test 07/29/16 20:00 07/30/16 04:00 07/30/16 12:00 Troponin I < 0.30 ng/mL (<=0.30) < 0.30 ng/mL (<=0.30) < 0.30 ng/mL (<=0.30) White Blood Count 11.0 K/UL (4.8-10.8) H Red Blood Count 3.54 M/UL (4.20-5.40) L Hemoglobin 10.0 G/DL (12.0-16.0) L Hematocrit 30.1 % (37.0-47.0) L Mean Corpuscular Volume 85 FL (80-99) Mean Corpuscular Hemoglobin 28.1 PG (27.0-31.0) Mean Corpuscular Hemoglobin Concent 33.1 G/DL (32.0-36.0) Red Cell Distribution Width 13.4 % (11.6-14.8) Platelet Count 249 K/UL (150-450) Mean Platelet Volume 7.7 FL (6.5-10.1) Neutrophils (%) (Auto) 71.7 % (45.0-75.0) Lymphocytes (%) (Auto) 19.8 % (20.0-45.0) L Monocytes (%) (Auto) 6.2 % (1.0-10.0) Eosinophils (%) (Auto) 1.7 % (0.0-3.0) Basophils (%) (Auto) 0.5 % (0.0-2.0) Sodium Level 138 mEQ/L (135-145) Potassium Level 5.1 mEQ/L (3.4-4.9) H Chloride Level 89 mEQ/L (98-107) L Carbon Dioxide Level 35 mEQ/L (20-30) H Anion Gap 14 (5-15) Blood Urea Nitrogen 11 mg/dL (7-23) Creatinine 1.0 mg/dL (0.5-0.9) H Estimat Glomerular Filtration Rate > 60 mL/min (>60) Glucose Level 141 mg/dL (74-106) H Calcium Level 9.3 mg/dL (8.6-10.2) Pro-B-Type Natriuretic Peptide 1265 pg/mL (0-125) H Microbiology Date/Time Source Procedure Growth Status 07/28/16 15:15 Sputum Gram Stain - Final Complete 07/28/16 15:15 Sputum Sputum Culture - Final NORMAL UPPER RESPIRATORY JONATHAN PRESENT Complete Intake and Output 07/29/16 07/30/16 19:00 07:00 Intake Total 690 ml Output Total 1200 ml Balance -510 ml Intake Oral 480 ml IV Total 210 ml Output Urine Total 1200 ml # Voids 3 # Bowel Movements 1 2 Objective General: obese; alert, cooperative, no distress, appears stated age Head: normocephalic, without obvious abnormality, atraumatic Eyes: conjunctivae/corneas clear. PERRL, EOM's intact Throat: lips, mucosa, and tongue normal. MMM Neck: supple, symmetrical, trachea midline, and no JVD Lungs: Few wheezed bilat; otherwise, clear to auscultation bilaterally Heart: regular rate and rhythm, S1, S2 normal, no murmur, click, rub or gallop Abdomen: soft, non-tender, non-distended, bowel sounds normal; no masses or organomegaly Extremities: extremities normal, atraumatic, no cyanosis or edema Pulses: 2+ and symmetric Skin: skin color, texture, turgor normal; no rashes or lesions Neurologic: grossly normal, no focal deficits Assessment/Plan Problem List: (1) Pleuritic chest pain (2) Edema of both legs (3) Cough (4) Shortness of breath (5) COPD exacerbation Assessment & Plan: See pulmonary note; Continue duoneb. See ID note; cont levaquin and aztreonam. (6) Diabetes mellitus type II, uncontrolled Assessment & Plan: Cont novolog sliding scale. (7) Hypertension Assessment & Plan: Cont cardizem. (8) Morbid obesity (9) CHF (congestive heart failure) Assessment & Plan: Diastolic dysfunction. LVEF=55-60%. See cardiology note. Status: not improved GERMAN WEBSTER July 30, 2016 17:35
[2016-07-30 20:00] VITALS: BP 142/84
[2016-07-30 20:56] LABS: TROPONIN I < 0.30 ng/mL (<=0.30)
[2016-07-31] VITALS: BP 145/76
[2016-07-31] MEDS: Morphine Sulfate 2mg/ml Inj IVP PRN ×6 (00:52→22:30)
[2016-07-31 04:00] VITALS: BP 134/77
[2016-07-31] MEDS: DuoNeb 0.5-3(2.5)mg/3ml neb HHN PRN ×3 (04:13→18:45)
[2016-07-31] MEDS: Aztreonam Inj 1 GM in NS 55 ML IVPB SCH ×3 (06:04→22:29)
[2016-07-31] MEDS: NovoLOG Insulin Flexpen SUBQ SCH ×4 (06:09→20:59)
[2016-07-31 07:56] VITALS: BP 127/65
[2016-07-31 08:01] LABS: ANION GAP 13 (5-15); CALCIUM 9.2 mg/dL (8.6-10.2); CARBON DIOXIDE 35 mEQ/L (20-30); CHLORIDE 89 mEQ/L (98-107); CREATININE 0.9 mg/dL (0.5-0.9); GLOMERULAR FILTRATION RATE > 60 mL/min (>60); HEMOLYSIS 2; POTASSIUM 3.2 mEQ/L (3.4-4.9); SODIUM 137 mEQ/L (135-145)
--- NOTE | 2016-07-31 08:09 | Pulmonology Progress Note ---
Assessment/Plan Assessment/Plan ASSESSMENT chest pain, likely 2 to CHF acute diastolic CHF exacerbation HTN COPD/asthma morbid obesity bronchitis vs CAP anemia hyperkalemia, s/p treatment chronic CO2 retention PLAN OF CARE MS floor serial troponin negative ECG no acute ischemic changes, thus ruled out for ACS cardio follows ECG with RBBB and left anterior fascicular block ECHO with preserved EF 55-60% and RVSP of 38 diuresis, monitor renal parameters, lytes, I/O pro BNP trending down fup CXR still with mild interstitial edema continue ASA blood cx, sputum cx all negative ID follows abx as per ID O2 HHN prn continue Singular Venous Duplex BLE negative HH at baseline, monitor, BS management with SS of insulin DVT prophylaxis PT eval and Rx consider GI consult as outpatient for evaluation of midsternal chest pain, case discussed and evaluated by supervising physician Subjective Allergies: Coded Allergies: PENICILLINS (Verified Allergy, Intermediate, Hives, 07/09/16) Subjective leucocytosis resolved, afebrile still complaining of intermittent midsternal chest pain, lasting 15-30 minutes, no exertional SOB Objective Last 24 Hour Vital Signs Date Time Temp Pulse Resp B/P Pulse Ox O2 Delivery O2 Flow Rate FiO2 07/31/16 07:56 98.2 79 15 127/65 99 Nasal Cannula 07/31/16 04:23 76 18 99 Nasal Cannula 2.0 28 07/31/16 04:14 74 20 99 Nasal Cannula 2.0 28 07/31/16 04:00 97.7 101 20 134/77 96 Nasal Cannula 2.0 07/31/16 00:00 97.5 53 20 145/76 99 Nasal Cannula 2.0 07/30/16 20:00 98.1 97 20 142/84 100 Nasal Cannula 2.0 07/30/16 19:32 Nasal Cannula 2.0 28 07/30/16 19:31 96 Nasal Cannula 2.0 28 07/30/16 19:31 95 24 Nasal Cannula 2.0 07/30/16 16:14 97.0 95 16 147/80 95 Nasal Cannula 07/30/16 12:17 97.3 99 16 138/82 95 Nasal Cannula 07/30/16 08:42 98 142/71 07/30/16 08:08 98.1 98 15 142/71 94 Nasal Cannula Intake and Output 07/30/16 07/31/16 19:00 07:00 Intake Total 2155 ml 505 ml Output Total 1600 ml Balance 555 ml 505 ml Intake Oral 2000 ml 450 ml IV Total 155 ml 55 ml Output Urine Total 1600 ml # Voids 2 # Bowel Movements 3 3 General Appearance: no acute distress HEENT: normocephalic, atraumatic, anicteric, mucous membranes moist Respiratory/Chest: lungs clear, no respiratory distress, no accessory muscle use, other - midsternal area TTP Cardiovascular: normal peripheral pulses, regular rhythm, no JVD Abdomen: normal bowel sounds, soft, non tender - obese, non distended Genitourinary: normal external genitalia Extremities: pedal pulses normal, other - + 2 edema BLE Neurologic/Psychiatric: no motor/sensory deficits, alert, oriented x 3, responsive Microbiology Date/Time Source Procedure Growth Status 07/28/16 15:15 Sputum Gram Stain - Final Complete 07/28/16 15:15 Sputum Sputum Culture - Final NORMAL UPPER RESPIRATORY JONATHAN PRESENT Complete Laboratory Tests 07/30/16 12:00: Troponin I < 0.30 07/30/16 19:55: Troponin I < 0.30 07/31/16 05:45: Sodium Level 137, Potassium Level 3.2L, Chloride Level 89L, Carbon Dioxide Level 35H, Anion Gap 13, Blood Urea Nitrogen 8, Creatinine 0.9, Estimat Glomerular Filtration Rate > 60, Glucose Level 112H, Calcium Level 9.2, Pro-B- Type Natriuretic Peptide [Pending] Current Medications Medications (Trade) Dose Ordered Sig/Anthony Route PRN Reason Start Time Stop Time Status Last Admin Dose Admin Acetaminophen (Tylenol) 650 mg Q4H PRN ORAL Fever 07/29/16 20:30 08/28/16 20:29 Albuterol/ Ipratropium (DuoNeb 0.5-3(2.5)mg/3ml) 3 ml Q4H PRN HHN Shortness of Breath 07/29/16 20:30 08/03/16 20:29 07/31/16 04:13 Aspirin (ASA) 81 mg DAILY ORAL 07/30/16 09:00 08/29/16 08:59 07/30/16 08:42 Aztreonam 1 gm/ Sodium Chloride 55 ml @ 110 mls/hr EVERY 8 HOURS IVPB 07/29/16 22:00 08/05/16 21:59 07/31/16 06:04 Dextrose (Dextrose 50%) STAT PRN IV Hypoglycemia 07/29/16 20:30 08/28/16 20:29 Diltiazem HCl (Cardizem CD) 180 mg DAILY ORAL 07/30/16 09:00 08/29/16 08:59 07/30/16 08:42 Furosemide (Lasix) 40 mg EVERY 12 HOURS IV 07/29/16 21:00 08/28/16 20:59 07/30/16 21:32 Heparin Sodium (Porcine) (Heparin 5000 units/ml) 5,000 units EVERY 12 HOURS SUBQ 07/29/16 21:00 08/28/16 20:59 07/30/16 21:33 Insulin Aspart (NovoLOG) BEFORE MEALS AND HS SUBQ 07/29/16 21:00 08/28/16 20:59 07/31/16 06:09 Levofloxacin (Levaquin) 100 ml @ 100 mls/hr Q24H IVPB 07/30/16 15:00 08/06/16 14:59 07/30/16 14:33 Montelukast Sodium 10 mg 10 mg DAILY ORAL 07/30/16 09:00 08/29/16 08:59 07/30/16 08:42 Morphine Sulfate (Morphine Sulfate) 2 mg Q4H PRN IVP For Pain 07/29/16 20:30 08/05/16 20:29 07/31/16 05:04 Ondansetron HCl (Zofran) 4 mg Q6H PRN IVP Nausea & Vomiting 07/29/16 20:30 08/28/16 20:29 Polyethylene Glycol (Miralax) 17 gm DAILYPRN PRN ORAL Constipation 07/29/16 20:30 08/28/16 20:29 Temazepam (Restoril) 15 mg HSPRN PRN ORAL Insomnia 07/29/16 20:30 08/05/16 20:29 Ashleigh Klein NP ([facility]anchtein) July 31, 2016 08:09
--- NOTE | 2016-07-31 08:18 | Infectious Diseases Prog Note ---
Assessment/Plan Assessment/Plan A: Leukocytosis - improving, afebrile CAPn versus bronchitis Chest x-ray: Possible vascular interstitial edema HTN CHF COPD Osteoarthritis Diabetes PCN allergies Full Code PLAN: Cont Levaquin and aztreonam d# 4 / 5 , upon DC will cont w Levaquin PO to complete the course Monitor CBC Monitor BMP Monitor cultures (blood, sputum). Monitor chest x-ray Subjective Allergies: Coded Allergies: PENICILLINS (Verified Allergy, Intermediate, Hives, 07/09/16) Subjective remains afebrile dec WBC Objective Vital Signs Last 24 Hour Vital Signs Date Time Temp Pulse Resp B/P Pulse Ox O2 Delivery O2 Flow Rate FiO2 07/31/16 07:56 98.2 79 15 127/65 99 Nasal Cannula 07/31/16 04:23 76 18 99 Nasal Cannula 2.0 28 07/31/16 04:14 74 20 99 Nasal Cannula 2.0 28 07/31/16 04:00 97.7 101 20 134/77 96 Nasal Cannula 2.0 07/31/16 00:00 97.5 53 20 145/76 99 Nasal Cannula 2.0 07/30/16 20:00 98.1 97 20 142/84 100 Nasal Cannula 2.0 07/30/16 19:32 Nasal Cannula 2.0 28 07/30/16 19:31 96 Nasal Cannula 2.0 28 07/30/16 19:31 95 24 Nasal Cannula 2.0 07/30/16 16:14 97.0 95 16 147/80 95 Nasal Cannula 07/30/16 12:17 97.3 99 16 138/82 95 Nasal Cannula 07/30/16 08:42 98 142/71 Height (Feet): 5 Height (Inches): 3.00 Weight (Pounds): 249 General Appearance: no acute distress Respiratory/Chest: no respiratory distress Cardiovascular: normal rate, regular rhythm Abdomen: normal bowel sounds, soft, non tender, non distended Microbiology Date/Time Source Procedure Growth Status 07/28/16 15:15 Sputum Gram Stain - Final Complete 07/28/16 15:15 Sputum Sputum Culture - Final NORMAL UPPER RESPIRATORY JONATHAN PRESENT Complete Laboratory Tests Test 07/30/16 12:00 07/30/16 19:55 07/31/16 05:45 Troponin I < 0.30 ng/mL (<=0.30) < 0.30 ng/mL (<=0.30) Sodium Level 137 mEQ/L (135-145) Potassium Level 3.2 mEQ/L (3.4-4.9) L Chloride Level 89 mEQ/L (98-107) L Carbon Dioxide Level 35 mEQ/L (20-30) H Anion Gap 13 (5-15) Blood Urea Nitrogen 8 mg/dL (7-23) Creatinine 0.9 mg/dL (0.5-0.9) Estimat Glomerular Filtration Rate > 60 mL/min (>60) Glucose Level 112 mg/dL (74-106) H Calcium Level 9.2 mg/dL (8.6-10.2) Pro-B-Type Natriuretic Peptide 727 pg/mL (0-125) H Current Medications Medications (Trade) Dose Ordered Sig/Anthony Route PRN Reason Start Time Stop Time Status Last Admin Dose Admin Acetaminophen (Tylenol) 650 mg Q4H PRN ORAL Fever 07/29/16 20:30 08/28/16 20:29 Albuterol/ Ipratropium (DuoNeb 0.5-3(2.5)mg/3ml) 3 ml Q4H PRN HHN Shortness of Breath 07/29/16 20:30 08/03/16 20:29 07/31/16 04:13 Aspirin (ASA) 81 mg DAILY ORAL 07/30/16 09:00 08/29/16 08:59 07/30/16 08:42 Aztreonam 1 gm/ Sodium Chloride 55 ml @ 110 mls/hr EVERY 8 HOURS IVPB 07/29/16 22:00 08/05/16 21:59 07/31/16 06:04 Dextrose (Dextrose 50%) STAT PRN IV Hypoglycemia 07/29/16 20:30 08/28/16 20:29 Diltiazem HCl (Cardizem CD) 180 mg DAILY ORAL 07/30/16 09:00 08/29/16 08:59 07/30/16 08:42 Furosemide (Lasix) 40 mg EVERY 12 HOURS IV 07/29/16 21:00 08/28/16 20:59 07/30/16 21:32 Heparin Sodium (Porcine) (Heparin 5000 units/ml) 5,000 units EVERY 12 HOURS SUBQ 07/29/16 21:00 08/28/16 20:59 07/30/16 21:33 Insulin Aspart (NovoLOG) BEFORE MEALS AND HS SUBQ 07/29/16 21:00 08/28/16 20:59 07/31/16 06:09 Levofloxacin (Levaquin) 100 ml @ 100 mls/hr Q24H IVPB 07/30/16 15:00 08/06/16 14:59 07/30/16 14:33 Montelukast Sodium 10 mg 10 mg DAILY ORAL 07/30/16 09:00 08/29/16 08:59 07/30/16 08:42 Morphine Sulfate (Morphine Sulfate) 2 mg Q4H PRN IVP For Pain 07/29/16 20:30 08/05/16 20:29 07/31/16 05:04 Ondansetron HCl (Zofran) 4 mg Q6H PRN IVP Nausea & Vomiting 07/29/16 20:30 08/28/16 20:29 Polyethylene Glycol (Miralax) 17 gm DAILYPRN PRN ORAL Constipation 07/29/16 20:30 08/28/16 20:29 Temazepam (Restoril) 15 mg HSPRN PRN ORAL Insomnia 07/29/16 20:30 08/05/16 20:29 ELLIE MOORE July 31, 2016 08:18
[2016-07-31] MEDS: Aspirin Baby 81mg ORAL SCH (09:06)
[2016-07-31] MEDS: Diltiazem CD 180mg cap ORAL SCH (09:06)
[2016-07-31] MEDS: Montelukast 10mg tablet ORAL SCH (09:06)
[2016-07-31] MEDS: Heparin 5000 units/ml inj SUBQ SCH ×2 (09:11→20:55)
[2016-07-31 09:40] LABS: BASOPHILS % (AUTO) 0.6 % (0.0-2.0); EOSINOPHILS % (AUTO) 1.7 % (0.0-3.0); LYMPHOCYTES % (AUTO) 18.4 % (20.0-45.0); MEAN CORPUSCULAR HEMOGLOBIN 28.1 PG (27.0-31.0); MEAN CORPUSCULAR HGB CONC 32.6 G/DL (32.0-36.0); MEAN CORPUSCULAR VOLUME 86 FL (80-99); MEAN PLATELET VOLUME 8.6 FL (6.5-10.1); NEUTROPHILS % (AUTO) 71.3 % (45.0-75.0); PLATELET COUNT 280 K/UL (150-450); RED BLOOD COUNT 3.63 M/UL (4.20-5.40); RED CELL DISTRIBUTION WIDTH 13.7 % (11.6-14.8); WHITE BLOOD COUNT 9.2 K/UL (4.8-10.8)
[2016-07-31 11:47] VITALS: BP 127/71
--- NOTE | 2016-07-31 13:46 | Cardiac Electrophysiology PN ---
Assessment/Plan Assessment/Plan 1. CHF due to Diastolic dysfunction. Echo showed EF 55-60% . Continue Lasix 40 mg IV b.i.d. BNP down from 1265 to 727 today! 2. Hypertension. Continue Lasix and Cardizem DC 180. 3. Chronic obstructive pulmonary disease. 4. Morbid obesity. 5. PNA on Abx per Dr Carlos SALDANA RN Subjective Subjective Comfortable in NAD. No chest pain or SOB. Diuresing well.On abx. Objective Last 24 Hour Vital Signs Date Time Temp Pulse Resp B/P Pulse Ox O2 Delivery O2 Flow Rate FiO2 07/31/16 11:47 98.2 97 15 127/71 98 Nasal Cannula 07/31/16 09:06 79 127/65 07/31/16 07:56 98.2 79 15 127/65 99 Nasal Cannula 07/31/16 07:00 Nasal Cannula 2.0 28 07/31/16 07:00 80 20 Nasal Cannula 2.0 07/31/16 07:00 97 Nasal Cannula 2.0 28 07/31/16 04:23 76 18 99 Nasal Cannula 2.0 28 07/31/16 04:14 74 20 99 Nasal Cannula 2.0 28 07/31/16 04:00 97.7 101 20 134/77 96 Nasal Cannula 2.0 07/31/16 00:00 97.5 53 20 145/76 99 Nasal Cannula 2.0 07/30/16 20:00 98.1 97 20 142/84 100 Nasal Cannula 2.0 07/30/16 19:32 Nasal Cannula 2.0 28 07/30/16 19:31 96 Nasal Cannula 2.0 28 07/30/16 19:31 95 24 Nasal Cannula 2.0 07/30/16 16:14 97.0 95 16 147/80 95 Nasal Cannula Intake and Output 07/30/16 07/31/16 19:00 07:00 Intake Total 2155 ml 505 ml Output Total 1600 ml Balance 555 ml 505 ml Intake Oral 2000 ml 450 ml IV Total 155 ml 55 ml Output Urine Total 1600 ml # Voids 2 # Bowel Movements 3 3 Laboratory Tests Test 07/30/16 19:55 07/31/16 05:45 Troponin I < 0.30 ng/mL (<=0.30) White Blood Count 9.2 K/UL (4.8-10.8) Red Blood Count 3.63 M/UL (4.20-5.40) L Hemoglobin 10.2 G/DL (12.0-16.0) L Hematocrit 31.4 % (37.0-47.0) L Mean Corpuscular Volume 86 FL (80-99) Mean Corpuscular Hemoglobin 28.1 PG (27.0-31.0) Mean Corpuscular Hemoglobin Concent 32.6 G/DL (32.0-36.0) Red Cell Distribution Width 13.7 % (11.6-14.8) Platelet Count 280 K/UL (150-450) Mean Platelet Volume 8.6 FL (6.5-10.1) Neutrophils (%) (Auto) 71.3 % (45.0-75.0) Lymphocytes (%) (Auto) 18.4 % (20.0-45.0) L Monocytes (%) (Auto) 8.0 % (1.0-10.0) Eosinophils (%) (Auto) 1.7 % (0.0-3.0) Basophils (%) (Auto) 0.6 % (0.0-2.0) Sodium Level 137 mEQ/L (135-145) Potassium Level 3.2 mEQ/L (3.4-4.9) L Chloride Level 89 mEQ/L (98-107) L Carbon Dioxide Level 35 mEQ/L (20-30) H Anion Gap 13 (5-15) Blood Urea Nitrogen 8 mg/dL (7-23) Creatinine 0.9 mg/dL (0.5-0.9) Estimat Glomerular Filtration Rate > 60 mL/min (>60) Glucose Level 112 mg/dL (74-106) H Calcium Level 9.2 mg/dL (8.6-10.2) Pro-B-Type Natriuretic Peptide 727 pg/mL (0-125) H Microbiology Date/Time Source Procedure Growth Status 07/28/16 15:15 Sputum Gram Stain - Final Complete 07/28/16 15:15 Sputum Sputum Culture - Final NORMAL UPPER RESPIRATORY JONATHAN PRESENT Complete Objective HEAD AND NECK: No JVD. LUNGS: Decreased breath sounds with scattered wheezes. CARDIOVASCULAR: Shows regular S1 and S2 with no gallop or murmur. ABDOMEN: Obese. EXTREMITIES: 2+ pitting edema. STEF GIBBS July 31, 2016 13:46
[2016-07-31] MEDS ORDERED: Tubing IV Secondary IV ONE (15:25)
[2016-07-31 16:18] VITALS: BP 139/78
--- NOTE | 2016-07-31 18:58 | Internal Med Progress Note ---
Subjective Date of Service: July 31, 2016 Physician Name Webster,German Attending Physician Yan Solitario MD Current Medications Medications (Trade) Dose Ordered Sig/Anthony Route PRN Reason Start Time Stop Time Status Last Admin Dose Admin Acetaminophen (Tylenol) 650 mg Q4H PRN ORAL Fever 07/29/16 20:30 08/28/16 20:29 Albuterol/ Ipratropium (DuoNeb 0.5-3(2.5)mg/3ml) 3 ml Q4H PRN HHN Shortness of Breath 07/29/16 20:30 08/03/16 20:29 07/31/16 18:45 Aspirin (ASA) 81 mg DAILY ORAL 07/30/16 09:00 08/29/16 08:59 07/31/16 09:06 Aztreonam 1 gm/ Sodium Chloride 55 ml @ 110 mls/hr EVERY 8 HOURS IVPB 07/29/16 22:00 08/05/16 21:59 07/31/16 13:52 Dextrose (Dextrose 50%) STAT PRN IV Hypoglycemia 07/29/16 20:30 08/28/16 20:29 Diltiazem HCl (Cardizem CD) 180 mg DAILY ORAL 07/30/16 09:00 08/29/16 08:59 07/31/16 09:06 Furosemide (Lasix) 40 mg EVERY 12 HOURS IV 07/29/16 21:00 08/28/16 20:59 07/31/16 09:06 Heparin Sodium (Porcine) (Heparin 5000 units/ml) 5,000 units EVERY 12 HOURS SUBQ 07/29/16 21:00 08/28/16 20:59 07/31/16 09:11 Insulin Aspart (NovoLOG) BEFORE MEALS AND HS SUBQ 07/29/16 21:00 08/28/16 20:59 07/31/16 16:31 Levofloxacin (Levaquin) 100 ml @ 100 mls/hr Q24H IVPB 07/30/16 15:00 08/06/16 14:59 07/31/16 14:25 Montelukast Sodium 10 mg 10 mg DAILY ORAL 07/30/16 09:00 08/29/16 08:59 07/31/16 09:06 Morphine Sulfate (Morphine Sulfate) 2 mg Q4H PRN IVP For Pain 07/29/16 20:30 08/05/16 20:29 07/31/16 18:17 Ondansetron HCl (Zofran) 4 mg Q6H PRN IVP Nausea & Vomiting 07/29/16 20:30 08/28/16 20:29 Polyethylene Glycol (Miralax) 17 gm DAILYPRN PRN ORAL Constipation 07/29/16 20:30 08/28/16 20:29 Temazepam (Restoril) 15 mg HSPRN PRN ORAL Insomnia 07/29/16 20:30 08/05/16 20:29 Allergies: Coded Allergies: PENICILLINS (Verified Allergy, Intermediate, Hives, 07/09/16) ROS Limited/Unobtainable: No Constitutional: Reports: no symptoms HEENT: Reports: no symptoms Cardiovascular: Reports: no symptoms Respiratory: Reports: shortness of breath Gastrointestinal/Abdominal: Reports: no symptoms Genitourinary: Reports: no symptoms Neurologic/Psychiatric: Reports: no symptoms Subjective 70 YO F with H/O asthma vs COPD admitted with cough and shortness of breath. Cover for Int [place]-Dr Solitario. Objective Last Vital Signs Date Time Temp Pulse Resp B/P Pulse Ox O2 Delivery O2 Flow Rate FiO2 07/31/16 18:46 97 Nasal Cannula 2.0 28 07/31/16 18:46 101 18 07/31/16 16:18 98.1 139/78 Laboratory Tests Test 07/30/16 19:55 07/31/16 05:45 Troponin I < 0.30 ng/mL (<=0.30) White Blood Count 9.2 K/UL (4.8-10.8) Red Blood Count 3.63 M/UL (4.20-5.40) L Hemoglobin 10.2 G/DL (12.0-16.0) L Hematocrit 31.4 % (37.0-47.0) L Mean Corpuscular Volume 86 FL (80-99) Mean Corpuscular Hemoglobin 28.1 PG (27.0-31.0) Mean Corpuscular Hemoglobin Concent 32.6 G/DL (32.0-36.0) Red Cell Distribution Width 13.7 % (11.6-14.8) Platelet Count 280 K/UL (150-450) Mean Platelet Volume 8.6 FL (6.5-10.1) Neutrophils (%) (Auto) 71.3 % (45.0-75.0) Lymphocytes (%) (Auto) 18.4 % (20.0-45.0) L Monocytes (%) (Auto) 8.0 % (1.0-10.0) Eosinophils (%) (Auto) 1.7 % (0.0-3.0) Basophils (%) (Auto) 0.6 % (0.0-2.0) Sodium Level 137 mEQ/L (135-145) Potassium Level 3.2 mEQ/L (3.4-4.9) L Chloride Level 89 mEQ/L (98-107) L Carbon Dioxide Level 35 mEQ/L (20-30) H Anion Gap 13 (5-15) Blood Urea Nitrogen 8 mg/dL (7-23) Creatinine 0.9 mg/dL (0.5-0.9) Estimat Glomerular Filtration Rate > 60 mL/min (>60) Glucose Level 112 mg/dL (74-106) H Calcium Level 9.2 mg/dL (8.6-10.2) Pro-B-Type Natriuretic Peptide 727 pg/mL (0-125) H Intake and Output 07/30/16 07/31/16 19:00 07:00 Intake Total 2155 ml 505 ml Output Total 1600 ml Balance 555 ml 505 ml Intake Oral 2000 ml 450 ml IV Total 155 ml 55 ml Output Urine Total 1600 ml # Voids 2 # Bowel Movements 3 3 Objective General: obese; alert, cooperative, no distress, appears stated age Head: normocephalic, without obvious abnormality, atraumatic Eyes: conjunctivae/corneas clear. PERRL, EOM's intact Throat: lips, mucosa, and tongue normal. MMM Neck: supple, symmetrical, trachea midline, and no JVD Lungs: Few wheezed bilat; otherwise, clear to auscultation bilaterally Heart: regular rate and rhythm, S1, S2 normal, no murmur, click, rub or gallop Abdomen: soft, non-tender, non-distended, bowel sounds normal; no masses or organomegaly Extremities: extremities normal, atraumatic, no cyanosis or edema Pulses: 2+ and symmetric Skin: skin color, texture, turgor normal; no rashes or lesions Neurologic: grossly normal, no focal deficits Assessment/Plan Problem List: (1) Pleuritic chest pain (2) Edema of both legs (3) Cough (4) Shortness of breath (5) COPD exacerbation Assessment & Plan: See pulmonary note; Continue duoneb. See ID note; cont levaquin and aztreonam. (6) Diabetes mellitus type II, uncontrolled Assessment & Plan: Cont novolog sliding scale. (7) Hypertension Assessment & Plan: Cont cardizem. (8) Morbid obesity (9) CHF (congestive heart failure) Assessment & Plan: Diastolic dysfunction. LVEF=55-60%. See cardiology note. Status: progressing GERMAN WEBSTER July 31, 2016 18:58
[2016-07-31 20:00] VITALS: BP 124/68
[2016-08-01] VITALS: BP 145/70
[2016-08-01] MEDS: Morphine Sulfate 2mg/ml Inj IVP PRN ×6 (02:35→22:50)
[2016-08-01 04:00] VITALS: BP 120/77
[2016-08-01] MEDS: DuoNeb 0.5-3(2.5)mg/3ml neb HHN PRN ×2 (04:35→15:33)
[2016-08-01] MEDS: Aztreonam Inj 1 GM in NS 55 ML IVPB SCH ×3 (05:22→21:35)
[2016-08-01 06:33] LABS: BASOPHILS % (AUTO) 1.5 % (0.0-2.0); EOSINOPHILS % (AUTO) 1.9 % (0.0-3.0); LYMPHOCYTES % (AUTO) 27.2 % (20.0-45.0); MEAN CORPUSCULAR HEMOGLOBIN 27.9 PG (27.0-31.0); MEAN CORPUSCULAR HGB CONC 32.5 G/DL (32.0-36.0); MEAN CORPUSCULAR VOLUME 86 FL (80-99); MEAN PLATELET VOLUME 8.4 FL (6.5-10.1); MONOCYTES % (AUTO) 11.9 % (1.0-10.0); NEUTROPHILS % (AUTO) 57.6 % (45.0-75.0); PLATELET COUNT 297 K/UL (150-450); RED BLOOD COUNT 3.33 M/UL (4.20-5.40); RED CELL DISTRIBUTION WIDTH 13.7 % (11.6-14.8); WHITE BLOOD COUNT 9.4 K/UL (4.8-10.8)
[2016-08-01] MEDS: NovoLOG Insulin Flexpen SUBQ SCH ×4 (06:33→21:00)
[2016-08-01 06:46] LABS: ANION GAP 11 (5-15); CALCIUM 8.8 mg/dL (8.6-10.2); CARBON DIOXIDE 36 mEQ/L (20-30); CHLORIDE 93 mEQ/L (98-107); CREATININE 0.9 mg/dL (0.5-0.9); GLOMERULAR FILTRATION RATE > 60 mL/min (>60); HEMOLYSIS 0; MAGNESIUM 1.4 mg/dL (1.7-2.5); POTASSIUM 3.3 mEQ/L (3.4-4.9); SODIUM 140 mEQ/L (135-145)
[2016-08-01 08:00] VITALS: BP 148/88
[2016-08-01] MEDS: Aspirin Baby 81mg ORAL SCH (08:59)
[2016-08-01] MEDS: Diltiazem CD 180mg cap ORAL SCH (08:59)
[2016-08-01] MEDS: Montelukast 10mg tablet ORAL SCH (08:59)
[2016-08-01] MEDS: Heparin 5000 units/ml inj SUBQ SCH ×2 (09:01→20:40)
[2016-08-01 12:00] VITALS: BP 147/96
--- NOTE | 2016-08-01 12:16 | Pulmonology Progress Note ---
Assessment/Plan Assessment/Plan ASSESSMENT chest pain, likely 2 to CHF acute diastolic CHF exacerbation HTN COPD/asthma morbid obesity bronchitis vs CAP anemia hyperkalemia, s/p treatment chronic CO2 retention e/lyte imbalance ( hypo K, hypo Mg) [facility] floor serial troponin negative ECG no acute ischemic changes, thus ruled out for ACS cardio follows ECG with RBBB and left anterior fascicular block ECHO with preserved EF 55-60% and RVSP of 38 diuresis, monitor renal parameters ( stable), lytes, I/O replace K and Mg, check in am pro BNP trending down fup CXR still with mild interstitial edema fup CXR continue ASA blood cx, sputum cx all negative ID follows abx as per ID O2 HHN prn continue Singular Venous Duplex BLE negative HH at baseline, monitor, BS management with SS of insulin DVT prophylaxis PT eval and Rx consider GI consult as outpatient for evaluation of midsternal chest pain, case discussed and evaluated by supervising physician Subjective Allergies: Coded Allergies: PENICILLINS (Verified Allergy, Intermediate, Hives, 07/09/16) Subjective leucocytosis resolved, afebrile still complaining occasional midsternal chest pain, lasting 15-30 minutes, no exertional SOB low K-3.3 and Mg-1.4 Objective Last 24 Hour Vital Signs Date Time Temp Pulse Resp B/P Pulse Ox O2 Delivery O2 Flow Rate FiO2 08/01/16 08:59 90 120/77 08/01/16 08:10 Nasal Cannula 2.0 08/01/16 08:10 85 20 Nasal Cannula 2.0 08/01/16 08:10 96 Nasal Cannula 2.0 08/01/16 08:00 97.5 98 20 148/88 94 Nasal Cannula 2.0 08/01/16 04:44 82 18 99 Nasal Cannula 2.0 28 08/01/16 04:35 72 18 98 Nasal Cannula 2.0 28 08/01/16 04:00 98.3 98 18 120/77 96 Nasal Cannula 08/01/16 00:00 99.5 100 18 145/70 97 Nasal Cannula 2.0 07/31/16 20:00 98.4 108 18 124/68 94 Nasal Cannula 2.0 07/31/16 18:46 97 Nasal Cannula 2.0 07/31/16 18:46 101 18 100 Nasal Cannula 2.0 28 07/31/16 18:46 Nasal Cannula 2.0 28 07/31/16 18:40 100 18 97 Nasal Cannula 2.0 28 07/31/16 18:40 100 20 Nasal Cannula 2.0 07/31/16 16:18 98.1 90 15 139/78 100 07/31/16 13:57 78 18 100 Nasal Cannula 2.0 28 07/31/16 13:47 75 18 98 Nasal Cannula 2.0 28 Intake and Output 07/31/16 08/01/16 19:00 07:00 Intake Total 1955 ml 590 ml Output Total 1200 ml Balance 755 ml 590 ml Intake Oral 1800 ml 480 ml IV Total 155 ml 110 ml Output Urine Total 1200 ml # Voids 6 # Bowel Movements 2 Objective General Appearance: no acute distress HEENT: normocephalic, atraumatic, anicteric, mucous membranes moist Respiratory/Chest: lungs clear, no respiratory distress, no accessory muscle use, other - midsternal area TTP Cardiovascular: normal peripheral pulses, regular rhythm, no JVD Abdomen: normal bowel sounds, soft, non tender - obese, non distended Genitourinary: normal external genitalia Extremities: pedal pulses normal, other - + 2 edema BLE Neurologic/Psychiatric: no motor/sensory deficits, alert, oriented x 3, responsive Laboratory Tests 08/01/16 06:05: White Blood Count 9.4, Red Blood Count 3.33L, Hemoglobin 9.3L, Hematocrit 28.6L , Mean Corpuscular Volume 86, Mean Corpuscular Hemoglobin 27.9, Mean Corpuscular Hemoglobin Concent 32.5, Red Cell Distribution Width 13.7, Platelet Count 297, Mean Platelet Volume 8.4, Neutrophils (%) (Auto) 57.6, Lymphocytes (% ) (Auto) 27.2, Monocytes (%) (Auto) 11.9H, Eosinophils (%) (Auto) 1.9, Basophils (%) (Auto) 1.5, Sodium Level 140, Potassium Level 3.3L, Chloride Level 93L, Carbon Dioxide Level 36H, Anion Gap 11, Blood Urea Nitrogen 8, Creatinine 0.9, Estimat Glomerular Filtration Rate > 60, Glucose Level 121H, Calcium Level 8.8, Magnesium Level 1.4L Current Medications Medications (Trade) Dose Ordered Sig/Anthony Route PRN Reason Start Time Stop Time Status Last Admin Dose Admin Acetaminophen (Tylenol) 650 mg Q4H PRN ORAL Fever 07/29/16 20:30 08/28/16 20:29 Albuterol/ Ipratropium (DuoNeb 0.5-3(2.5)mg/3ml) 3 ml Q4H PRN HHN Shortness of Breath 07/29/16 20:30 08/03/16 20:29 08/01/16 04:35 Aspirin (ASA) 81 mg DAILY ORAL 07/30/16 09:00 08/29/16 08:59 08/01/16 08:59 Aztreonam 1 gm/ Sodium Chloride 55 ml @ 110 mls/hr EVERY 8 HOURS IVPB 07/29/16 22:00 08/05/16 21:59 08/01/16 05:22 Dextrose (Dextrose 50%) STAT PRN IV Hypoglycemia 07/29/16 20:30 08/28/16 20:29 Diltiazem HCl (Cardizem CD) 180 mg DAILY ORAL 07/30/16 09:00 08/29/16 08:59 08/01/16 08:59 Furosemide (Lasix) 40 mg EVERY 12 HOURS IV 07/29/16 21:00 08/28/16 20:59 08/01/16 08:58 Heparin Sodium (Porcine) (Heparin 5000 units/ml) 5,000 units EVERY 12 HOURS SUBQ 07/29/16 21:00 08/28/16 20:59 08/01/16 09:01 Insulin Aspart (NovoLOG) BEFORE MEALS AND HS SUBQ 07/29/16 21:00 08/28/16 20:59 08/01/16 11:39 Levofloxacin (Levaquin) 100 ml @ 100 mls/hr Q24H IVPB 07/30/16 15:00 08/06/16 14:59 07/31/16 14:25 Magnesium Sulfate (Magnesium Sulfate 1gm/100ml) 100 ml @ 100 mls/hr Q1H IVPB 08/01/16 12:00 08/01/16 14:59 08/01/16 11:38 Montelukast Sodium 10 mg 10 mg DAILY ORAL 07/30/16 09:00 08/29/16 08:59 08/01/16 08:59 Morphine Sulfate (Morphine Sulfate) 2 mg Q4H PRN IVP For Pain 07/29/16 20:30 08/05/16 20:29 08/01/16 10:36 Ondansetron HCl (Zofran) 4 mg Q6H PRN IVP Nausea & Vomiting 07/29/16 20:30 08/28/16 20:29 Polyethylene Glycol (Miralax) 17 gm DAILYPRN PRN ORAL Constipation 07/29/16 20:30 08/28/16 20:29 Temazepam 15 mg 15 mg HSPRN PRN ORAL Insomnia 07/29/16 20:30 08/05/16 20:29 Er[facility] ShortCo[facility] CenterAshleigh Gill NP August 01, 2016 12:16
--- NOTE | 2016-08-01 14:48 | Cardiac Electrophysiology PN ---
Assessment/Plan Assessment/Plan 1. CHF due to Diastolic dysfunction. Echo showed EF 55-60% . Continue Lasix 40 mg IV b.i.d. BNP down from 1265 to 727. 2. Hypertension. Continue Lasix and Cardizem DC 180. 3. Chronic obstructive pulmonary disease. 4. Morbid obesity. 5. PNA on Abx per Dr Gonzalez 6. Hypokalemia due to LAsix. Will replace. DW RN Subjective Subjective Comfortable in NAD. No chest pain or SOB. Diuresing well on Lasix iv.RN at bedside. Objective Last 24 Hour Vital Signs Date Time Temp Pulse Resp B/P Pulse Ox O2 Delivery O2 Flow Rate FiO2 08/01/16 12:00 97.9 95 20 147/96 96 Nasal Cannula 2.0 08/01/16 08:59 90 120/77 08/01/16 08:10 Nasal Cannula 2.0 28 08/01/16 08:10 85 20 Nasal Cannula 2.0 08/01/16 08:10 96 Nasal Cannula 2.0 28 08/01/16 08:00 97.5 98 20 148/88 94 Nasal Cannula 2.0 08/01/16 04:44 82 18 99 Nasal Cannula 2.0 28 08/01/16 04:35 72 18 98 Nasal Cannula 2.0 28 08/01/16 04:00 98.3 98 18 120/77 96 Nasal Cannula 08/01/16 00:00 99.5 100 18 145/70 97 Nasal Cannula 2.0 07/31/16 20:00 98.4 108 18 124/68 94 Nasal Cannula 2.0 07/31/16 18:46 97 Nasal Cannula 2.0 07/31/16 18:46 101 18 100 Nasal Cannula 2.0 28 07/31/16 18:46 Nasal Cannula 2.0 28 07/31/16 18:40 100 18 97 Nasal Cannula 2.0 28 07/31/16 18:40 100 20 Nasal Cannula 2.0 07/31/16 16:18 98.1 90 15 139/78 100 Intake and Output 07/31/16 08/01/16 19:00 07:00 Intake Total 1955 ml 590 ml Output Total 1200 ml Balance 755 ml 590 ml Intake Oral 1800 ml 480 ml IV Total 155 ml 110 ml Output Urine Total 1200 ml # Voids 6 # Bowel Movements 2 Laboratory Tests Test 08/01/16 06:05 White Blood Count 9.4 K/UL (4.8-10.8) Red Blood Count 3.33 M/UL (4.20-5.40) L Hemoglobin 9.3 G/DL (12.0-16.0) L Hematocrit 28.6 % (37.0-47.0) L Mean Corpuscular Volume 86 FL (80-99) Mean Corpuscular Hemoglobin 27.9 PG (27.0-31.0) Mean Corpuscular Hemoglobin Concent 32.5 G/DL (32.0-36.0) Red Cell Distribution Width 13.7 % (11.6-14.8) Platelet Count 297 K/UL (150-450) Mean Platelet Volume 8.4 FL (6.5-10.1) Neutrophils (%) (Auto) 57.6 % (45.0-75.0) Lymphocytes (%) (Auto) 27.2 % (20.0-45.0) Monocytes (%) (Auto) 11.9 % (1.0-10.0) H Eosinophils (%) (Auto) 1.9 % (0.0-3.0) Basophils (%) (Auto) 1.5 % (0.0-2.0) Sodium Level 140 mEQ/L (135-145) Potassium Level 3.3 mEQ/L (3.4-4.9) L Chloride Level 93 mEQ/L (98-107) L Carbon Dioxide Level 36 mEQ/L (20-30) H Anion Gap 11 (5-15) Blood Urea Nitrogen 8 mg/dL (7-23) Creatinine 0.9 mg/dL (0.5-0.9) Estimat Glomerular Filtration Rate > 60 mL/min (>60) Glucose Level 121 mg/dL (74-106) H Calcium Level 8.8 mg/dL (8.6-10.2) Magnesium Level 1.4 mg/dL (1.7-2.5) L Objective HEAD AND NECK: No JVD. LUNGS: Decreased breath sounds with scattered wheezes. CARDIOVASCULAR: Regular S1 and S2 with no gallop or murmur. ABDOMEN: Obese. EXTREMITIES: 2+ pitting edema. STEF GIBBS August 01, 2016 14:48
[2016-08-01 16:00] VITALS: BP 132/65
--- NOTE | 2016-08-01 16:05 | Internal Med Progress Note ---
Subjective Date of Service: August 01, 2016 Physician Name Webster,German Attending Physician Yan Solitario MD Current Medications Medications (Trade) Dose Ordered Sig/Anthony Route PRN Reason Start Time Stop Time Status Last Admin Dose Admin Acetaminophen (Tylenol) 650 mg Q4H PRN ORAL Fever 07/29/16 20:30 08/28/16 20:29 Albuterol/ Ipratropium (DuoNeb 0.5-3(2.5)mg/3ml) 3 ml Q4H PRN HHN Shortness of Breath 08/01/16 12:30 08/06/16 12:29 08/01/16 15:33 Aspirin (ASA) 81 mg DAILY ORAL 07/30/16 09:00 08/29/16 08:59 08/01/16 08:59 Aztreonam 1 gm/ Sodium Chloride 55 ml @ 110 mls/hr EVERY 8 HOURS IVPB 07/29/16 22:00 08/05/16 21:59 08/01/16 13:57 Dextrose (Dextrose 50%) STAT PRN IV Hypoglycemia 07/29/16 20:30 08/28/16 20:29 Diltiazem HCl (Cardizem CD) 180 mg DAILY ORAL 07/30/16 09:00 08/29/16 08:59 08/01/16 08:59 Furosemide (Lasix) 40 mg EVERY 12 HOURS IV 07/29/16 21:00 08/28/16 20:59 08/01/16 08:58 Heparin Sodium (Porcine) (Heparin 5000 units/ml) 5,000 units EVERY 12 HOURS SUBQ 07/29/16 21:00 08/28/16 20:59 08/01/16 09:01 Insulin Aspart (NovoLOG) BEFORE MEALS AND HS SUBQ 07/29/16 21:00 08/28/16 20:59 08/01/16 11:39 Levofloxacin (Levaquin) 100 ml @ 100 mls/hr Q24H IVPB 07/30/16 15:00 08/06/16 14:59 08/01/16 15:00 Montelukast Sodium 10 mg 10 mg DAILY ORAL 07/30/16 09:00 08/29/16 08:59 08/01/16 08:59 Morphine Sulfate (Morphine Sulfate) 2 mg Q4H PRN IVP For Pain 07/29/16 20:30 08/05/16 20:29 08/01/16 14:40 Ondansetron HCl (Zofran) 4 mg Q6H PRN IVP Nausea & Vomiting 07/29/16 20:30 08/28/16 20:29 Polyethylene Glycol (Miralax) 17 gm DAILYPRN PRN ORAL Constipation 07/29/16 20:30 08/28/16 20:29 Potassium Chloride (K-Dur) 40 meq TWICE A DAY ORAL 08/01/16 18:00 08/31/16 17:59 Temazepam (Restoril) 15 mg HSPRN PRN ORAL Insomnia 07/29/16 20:30 08/05/16 20:29 Allergies: Coded Allergies: PENICILLINS (Verified Allergy, Intermediate, Hives, 07/09/16) ROS Limited/Unobtainable: No Constitutional: Reports: no symptoms HEENT: Reports: no symptoms Cardiovascular: Reports: no symptoms Respiratory: Reports: shortness of breath Gastrointestinal/Abdominal: Reports: no symptoms Genitourinary: Reports: no symptoms Neurologic/Psychiatric: Reports: no symptoms Subjective 70 YO F with H/O asthma vs COPD admitted with cough and shortness of breath. Cover for Int Med-Dr Solitario. C/O feet swelling Objective Last Vital Signs Date Time Temp Pulse Resp B/P Pulse Ox O2 Delivery O2 Flow Rate FiO2 08/01/16 15:43 95 20 97 Nasal Cannula 2.0 08/01/16 12:00 97.9 147/96 08/01/16 08:10 28 Laboratory Tests Test 08/01/16 06:05 White Blood Count 9.4 K/UL (4.8-10.8) Red Blood Count 3.33 M/UL (4.20-5.40) L Hemoglobin 9.3 G/DL (12.0-16.0) L Hematocrit 28.6 % (37.0-47.0) L Mean Corpuscular Volume 86 FL (80-99) Mean Corpuscular Hemoglobin 27.9 PG (27.0-31.0) Mean Corpuscular Hemoglobin Concent 32.5 G/DL (32.0-36.0) Red Cell Distribution Width 13.7 % (11.6-14.8) Platelet Count 297 K/UL (150-450) Mean Platelet Volume 8.4 FL (6.5-10.1) Neutrophils (%) (Auto) 57.6 % (45.0-75.0) Lymphocytes (%) (Auto) 27.2 % (20.0-45.0) Monocytes (%) (Auto) 11.9 % (1.0-10.0) H Eosinophils (%) (Auto) 1.9 % (0.0-3.0) Basophils (%) (Auto) 1.5 % (0.0-2.0) Sodium Level 140 mEQ/L (135-145) Potassium Level 3.3 mEQ/L (3.4-4.9) L Chloride Level 93 mEQ/L (98-107) L Carbon Dioxide Level 36 mEQ/L (20-30) H Anion Gap 11 (5-15) Blood Urea Nitrogen 8 mg/dL (7-23) Creatinine 0.9 mg/dL (0.5-0.9) Estimat Glomerular Filtration Rate > 60 mL/min (>60) Glucose Level 121 mg/dL (74-106) H Calcium Level 8.8 mg/dL (8.6-10.2) Magnesium Level 1.4 mg/dL (1.7-2.5) L Intake and Output 07/31/16 08/01/16 19:00 07:00 Intake Total 1955 ml 590 ml Output Total 1200 ml Balance 755 ml 590 ml Intake Oral 1800 ml 480 ml IV Total 155 ml 110 ml Output Urine Total 1200 ml # Voids 6 # Bowel Movements 2 Objective General: obese; alert, cooperative, no distress, appears stated age Head: normocephalic, without obvious abnormality, atraumatic Eyes: conjunctivae/corneas clear. PERRL, EOM's intact Throat: lips, mucosa, and tongue normal. MMM Neck: supple, symmetrical, trachea midline, and no JVD Lungs: Few wheezed bilat; otherwise, clear to auscultation bilaterally Heart: regular rate and rhythm, S1, S2 normal, no murmur, click, rub or gallop Abdomen: soft, non-tender, non-distended, bowel sounds normal; no masses or organomegaly Extremities: extremities normal, atraumatic, no cyanosis; trace pedal edema Pulses: 2+ and symmetric Skin: skin color, texture, turgor normal; no rashes or lesions Neurologic: grossly normal, no focal deficits Assessment/Plan Problem List: (1) Pleuritic chest pain (2) Edema of both legs Assessment & Plan: Cont IV lasix. Incr lasix to 40 mg BID (3) Cough (4) Shortness of breath (5) COPD exacerbation Assessment & Plan: See pulmonary note; Continue duoneb. See ID note; cont levaquin and aztreonam. (6) Diabetes mellitus type II, uncontrolled Assessment & Plan: Cont novolog sliding scale. (7) Hypertension Assessment & Plan: Cont cardizem. (8) Morbid obesity (9) CHF (congestive heart failure) Assessment & Plan: Diastolic dysfunction. LVEF=55-60%. See cardiology note. Status: progressing GERMAN WEBSTER August 01, 2016 16:04
[2016-08-01] MEDS ORDERED: Tubing IV Secondary IV ONE (18:35)
[2016-08-01] MEDS ORDERED: NS 275ml ONE (18:35)
[2016-08-01 20:00] VITALS: BP 143/76
[2016-08-02] VITALS: BP 142/74
[2016-08-02 04:00] VITALS: BP 100/50
[2016-08-02] MEDS: Aztreonam Inj 1 GM in NS 55 ML IVPB SCH (05:01)
[2016-08-02] MEDS: Morphine Sulfate 2mg/ml Inj IVP PRN ×5 (05:11→21:45)
[2016-08-02] MEDS: DuoNeb 0.5-3(2.5)mg/3ml neb HHN PRN ×3 (05:19→17:43)
[2016-08-02] MEDS ORDERED: Tubing IV Secondary IV ONE (06:00)
[2016-08-02] MEDS ORDERED: NS 275ml ONE (06:00)
[2016-08-02] MEDS: NovoLOG Insulin Flexpen SUBQ SCH ×4 (06:09→20:45)
[2016-08-02 07:23] LABS: BASOPHILS % (AUTO) 1.2 % (0.0-2.0); EOSINOPHILS % (AUTO) 2.1 % (0.0-3.0); LYMPHOCYTES % (AUTO) 28.8 % (20.0-45.0); MEAN CORPUSCULAR HEMOGLOBIN 27.8 PG (27.0-31.0); MEAN CORPUSCULAR VOLUME 84 FL (80-99); MEAN PLATELET VOLUME 8.5 FL (6.5-10.1); MONOCYTES % (AUTO) 11.6 % (1.0-10.0); NEUTROPHILS % (AUTO) 56.4 % (45.0-75.0); PLATELET COUNT 331 K/UL (150-450); RED BLOOD COUNT 3.48 M/UL (4.20-5.40); RED CELL DISTRIBUTION WIDTH 13.6 % (11.6-14.8)
[2016-08-02 07:32] LABS: ANION GAP 13 (5-15); CALCIUM 9.6 mg/dL (8.6-10.2); CARBON DIOXIDE 35 mEQ/L (20-30); CHLORIDE 92 mEQ/L (98-107); CREATININE 0.9 mg/dL (0.5-0.9); GLOMERULAR FILTRATION RATE > 60 mL/min (>60); HEMOLYSIS 8; POTASSIUM 3.8 mEQ/L (3.4-4.9); SODIUM 140 mEQ/L (135-145)
[2016-08-02 08:00] VITALS: BP 146/69
[2016-08-02] MEDS: Aspirin Baby 81mg ORAL SCH (09:20)
[2016-08-02] MEDS: Montelukast 10mg tablet ORAL SCH (09:20)
[2016-08-02] MEDS: Diltiazem CD 180mg cap ORAL SCH (09:20)
[2016-08-02] MEDS: Heparin 5000 units/ml inj SUBQ SCH ×2 (09:23→20:44)
--- NOTE | 2016-08-02 11:40 | Infectious Diseases Prog Note ---
Assessment/Plan Assessment/Plan A: COPD exacerbation Diastolic CHF Morbid obesity DM HPN P: Discontinue antibiotics Subjective ROS Limited/Unobtainable: No Constitutional: Reports: no symptoms Respiratory: Reports: dry cough, other - chest pain, Cardiovascular: Reports: dyspnea on exertion Gastrointestinal/Abdominal: Reports: no symptoms Genitourinary: Reports: no symptoms Musculoskeletal: Reports: other - in legs, pain Allergies: Coded Allergies: PENICILLINS (Verified Allergy, Intermediate, Hives, 07/09/16) Objective Vital Signs Last 24 Hour Vital Signs Date Time Temp Pulse Resp B/P Pulse Ox O2 Delivery O2 Flow Rate FiO2 08/02/16 10:28 28 08/02/16 10:28 94 22 96 Nasal Cannula 2.0 28 08/02/16 10:28 96 20 98 Nasal Cannula 2.0 08/02/16 09:51 97.9 08/02/16 09:20 69 146/69 08/02/16 08:00 97.9 69 20 146/69 99 Nasal Cannula 2.0 08/02/16 07:54 Nasal Cannula 2.0 08/02/16 07:54 98 Nasal Cannula 2.0 08/02/16 07:53 55 19 Nasal Cannula 2.0 08/02/16 05:28 82 20 99 Nasal Cannula 2.0 08/02/16 05:24 28 08/02/16 05:19 91 22 99 Nasal Cannula 2.0 08/02/16 04:00 97.9 89 20 100/50 94 Nasal Cannula 2.0 08/02/16 00:00 98.2 86 20 142/74 96 Nasal Cannula 2.0 08/01/16 20:00 98.6 96 20 143/76 96 Nasal Cannula 08/01/16 19:05 90 19 Nasal Cannula 2.0 08/01/16 17:05 98 Nasal Cannula 2.0 28 08/01/16 17:05 Nasal Cannula 2.0 28 08/01/16 16:00 97.3 94 20 132/65 95 Room Air 08/01/16 15:43 95 20 97 Nasal Cannula 2.0 08/01/16 15:30 93 20 99 Nasal Cannula 2.0 08/01/16 12:00 97.9 95 20 147/96 96 Nasal Cannula 2.0 Height (Feet): 5 Height (Inches): 3.00 Weight (Pounds): 249 General Appearance: no acute distress HEENT: mucous membranes moist Respiratory/Chest: lungs clear Cardiovascular: normal rate Abdomen: soft, non tender Extremities: other - edema of legs Neurologic/Psychiatric: alert, oriented x 3, responsive Laboratory Tests Test 08/02/16 04:45 White Blood Count 9.0 K/UL (4.8-10.8) Red Blood Count 3.48 M/UL (4.20-5.40) L Hemoglobin 9.7 G/DL (12.0-16.0) L Hematocrit 29.3 % (37.0-47.0) L Mean Corpuscular Volume 84 FL (80-99) Mean Corpuscular Hemoglobin 27.8 PG (27.0-31.0) Mean Corpuscular Hemoglobin Concent 33.0 G/DL (32.0-36.0) Red Cell Distribution Width 13.6 % (11.6-14.8) Platelet Count 331 K/UL (150-450) Mean Platelet Volume 8.5 FL (6.5-10.1) Neutrophils (%) (Auto) 56.4 % (45.0-75.0) Lymphocytes (%) (Auto) 28.8 % (20.0-45.0) Monocytes (%) (Auto) 11.6 % (1.0-10.0) H Eosinophils (%) (Auto) 2.1 % (0.0-3.0) Basophils (%) (Auto) 1.2 % (0.0-2.0) Sodium Level 140 mEQ/L (135-145) Potassium Level 3.8 mEQ/L (3.4-4.9) Chloride Level 92 mEQ/L (98-107) L Carbon Dioxide Level 35 mEQ/L (20-30) H Anion Gap 13 (5-15) Blood Urea Nitrogen 6 mg/dL (7-23) L Creatinine 0.9 mg/dL (0.5-0.9) Estimat Glomerular Filtration Rate > 60 mL/min (>60) Glucose Level 116 mg/dL (74-106) H Calcium Level 9.6 mg/dL (8.6-10.2) Magnesium Level 2.0 mg/dL (1.7-2.5) Pro-B-Type Natriuretic Peptide 356 pg/mL (0-125) H Current Medications Medications (Trade) Dose Ordered Sig/Anthony Route PRN Reason Start Time Stop Time Status Last Admin Dose Admin Acetaminophen (Tylenol) 650 mg Q4H PRN ORAL Fever 07/29/16 20:30 08/28/16 20:29 Albuterol/ Ipratropium (DuoNeb 0.5-3(2.5)mg/3ml) 3 ml Q4H PRN HHN Shortness of Breath 08/01/16 12:30 08/06/16 12:29 08/02/16 10:28 Aspirin (ASA) 81 mg DAILY ORAL 07/30/16 09:00 08/29/16 08:59 08/02/16 09:20 Aztreonam 1 gm/ Sodium Chloride 55 ml @ 110 mls/hr EVERY 8 HOURS IVPB 07/29/16 22:00 08/05/16 21:59 08/02/16 05:01 Dextrose (Dextrose 50%) STAT PRN IV Hypoglycemia 07/29/16 20:30 08/28/16 20:29 Diltiazem HCl (Cardizem CD) 180 mg DAILY ORAL 07/30/16 09:00 08/29/16 08:59 08/02/16 09:20 Furosemide (Lasix) 40 mg EVERY 12 HOURS IV 07/29/16 21:00 08/28/16 20:59 08/02/16 09:21 Heparin Sodium (Porcine) (Heparin 5000 units/ml) 5,000 units EVERY 12 HOURS SUBQ 07/29/16 21:00 08/28/16 20:59 08/02/16 09:23 Insulin Aspart (NovoLOG) BEFORE MEALS AND HS SUBQ 07/29/16 21:00 08/28/16 20:59 08/02/16 06:09 Levofloxacin (Levaquin) 100 ml @ 100 mls/hr Q24H IVPB 07/30/16 15:00 08/06/16 14:59 08/01/16 15:00 Montelukast Sodium 10 mg 10 mg DAILY ORAL 07/30/16 09:00 08/29/16 08:59 08/02/16 09:20 Morphine Sulfate (Morphine Sulfate) 2 mg Q4H PRN IVP For Pain 07/29/16 20:30 08/05/16 20:29 08/02/16 09:21 Ondansetron HCl (Zofran) 4 mg Q6H PRN IVP Nausea & Vomiting 07/29/16 20:30 08/28/16 20:29 Polyethylene Glycol (Miralax) 17 gm DAILYPRN PRN ORAL Constipation 07/29/16 20:30 08/28/16 20:29 Potassium Chloride (K-Dur) 40 meq TWICE A DAY ORAL 08/01/16 18:00 08/31/16 17:59 08/02/16 09:20 Temazepam (Restoril) 15 mg HSPRN PRN ORAL Insomnia 07/29/16 20:30 08/05/16 20:29 SHREYA VILLA August 02, 2016 11:40
[2016-08-02 12:00] VITALS: BP 145/68
--- NOTE | 2016-08-02 12:35 | Pulmonology Progress Note ---
Assessment/Plan Assessment/Plan ASSESSMENT chest pain, likely 2 to CHF acute diastolic CHF exacerbation HTN COPD/asthma morbid obesity bronchitis vs CAP anemia hyperkalemia, s/p treatment chronic CO2 retention e/lyte imbalance ( hypo K, hypo Mg) [facility] OF C[facility] floor serial troponin negative ECG no acute ischemic changes, thus ruled out for ACS cardio follows ECG with RBBB and left anterior fascicular block ECHO with preserved EF 55-60% and RVSP of 38 diuresis, monitor renal parameters ( stable), lytes, I/O replace K and Mg, check in am pro BNP trending down -376 fup CXR still with mild interstitial edema fup CXR in am continue ASA blood cx, sputum cx all negative ID follows abx as per ID O2 HHN prn continue Singular Venous Duplex BLE negative HH at baseline, monitor, BS management with SS of insulin DVT prophylaxis PT eval and Rx consider GI consult as outpatient for evaluation of midsternal chest pain, dc plan per PMD case discussed and evaluated by supervising physician Subjective Allergies: Coded Allergies: PENICILLINS (Verified Allergy, Intermediate, Hives, 07/09/16) Subjective leucocytosis resolved, afebrile no exertional SOB Objective Last 24 Hour Vital Signs Date Time Temp Pulse Resp B/P Pulse Ox O2 Delivery O2 Flow Rate FiO2 08/02/16 10:28 28 08/02/16 10:28 94 22 96 Nasal Cannula 2.0 08/02/16 10:28 96 20 98 Nasal Cannula 2.0 08/02/16 09:51 97.9 08/02/16 09:20 69 146/69 08/02/16 08:00 97.9 69 20 146/69 99 Nasal Cannula 2.0 08/02/16 07:54 Nasal Cannula 2.0 28 08/02/16 07:54 98 Nasal Cannula 2.0 28 08/02/16 07:53 55 19 Nasal Cannula 2.0 08/02/16 05:28 82 20 99 Nasal Cannula 2.0 08/02/16 05:24 28 08/02/16 05:19 91 22 99 Nasal Cannula 2.0 08/02/16 04:00 97.9 89 20 100/50 94 Nasal Cannula 2.0 08/02/16 00:00 98.2 86 20 142/74 96 Nasal Cannula 2.0 08/01/16 20:00 98.6 96 20 143/76 96 Nasal Cannula 08/01/16 19:05 90 19 Nasal Cannula 2.0 08/01/16 17:05 98 Nasal Cannula 2.0 28 08/01/16 17:05 Nasal Cannula 2.0 28 08/01/16 16:00 97.3 94 20 132/65 95 Room Air 08/01/16 15:43 95 20 97 Nasal Cannula 2.0 08/01/16 15:30 93 20 99 Nasal Cannula 2.0 Intake and Output 08/01/16 08/02/16 19:00 07:00 Intake Total 830 ml Output Total 700 ml Balance 830 ml -700 ml Intake Oral 320 ml IV Total 510 ml Output Urine Total 700 ml # Voids 6 # Bowel Movements 4 1 Objective General Appearance: no acute distress HEENT: normocephalic, atraumatic, anicteric, mucous membranes moist Respiratory/Chest: lungs clear, no respiratory distress, no accessory muscle use, other - midsternal area TTP Cardiovascular: normal peripheral pulses, regular rhythm, no JVD Abdomen: normal bowel sounds, soft, non tender - obese, non distended Genitourinary: normal external genitalia Extremities: pedal pulses normal, other - + 2 edema BLE Neurologic/Psychiatric: no motor/sensory deficits, alert, oriented x 3, responsive Laboratory Tests 08/02/16 04:45: White Blood Count 9.0, Red Blood Count 3.48L, Hemoglobin 9.7L, Hematocrit 29.3L , Mean Corpuscular Volume 84, Mean Corpuscular Hemoglobin 27.8, Mean Corpuscular Hemoglobin Concent 33.0, Red Cell Distribution Width 13.6, Platelet Count 331, Mean Platelet Volume 8.5, Neutrophils (%) (Auto) 56.4, Lymphocytes (% ) (Auto) 28.8, Monocytes (%) (Auto) 11.6H, Eosinophils (%) (Auto) 2.1, Basophils (%) (Auto) 1.2, Sodium Level 140, Potassium Level 3.8, Chloride Level 92L, Carbon Dioxide Level 35H, Anion Gap 13, Blood Urea Nitrogen 6L, Creatinine 0.9, Estimat Glomerular Filtration Rate > 60, Glucose Level 116H, Calcium Level 9.6, Magnesium Level 2.0, Pro-B-Type Natriuretic Peptide 356H Current Medications Medications (Trade) Dose Ordered Sig/Anthony Route PRN Reason Start Time Stop Time Status Last Admin Dose Admin Acetaminophen (Tylenol) 650 mg Q4H PRN ORAL Fever 07/29/16 20:30 08/28/16 20:29 Albuterol/ Ipratropium (DuoNeb 0.5-3(2.5)mg/3ml) 3 ml Q4H PRN HHN Shortness of Breath 08/01/16 12:30 08/06/16 12:29 08/02/16 10:28 Aspirin (ASA) 81 mg DAILY ORAL 07/30/16 09:00 08/29/16 08:59 08/02/16 09:20 Dextrose (Dextrose 50%) STAT PRN IV Hypoglycemia 07/29/16 20:30 08/28/16 20:29 Diltiazem HCl (Cardizem CD) 180 mg DAILY ORAL 07/30/16 09:00 08/29/16 08:59 08/02/16 09:20 Furosemide (Lasix) 40 mg EVERY 12 HOURS IV 07/29/16 21:00 08/28/16 20:59 08/02/16 09:21 Heparin Sodium (Porcine) (Heparin 5000 units/ml) 5,000 units EVERY 12 HOURS SUBQ 07/29/16 21:00 08/28/16 20:59 08/02/16 09:23 Insulin Aspart (NovoLOG) BEFORE MEALS AND HS SUBQ 07/29/16 21:00 08/28/16 20:59 08/02/16 12:09 Montelukast Sodium (Singulair) 10 mg DAILY ORAL 07/30/16 09:00 08/29/16 08:59 08/02/16 09:20 Morphine Sulfate (Morphine Sulfate) 2 mg Q4H PRN IVP For Pain 07/29/16 20:30 08/05/16 20:29 08/02/16 09:21 Ondansetron HCl (Zofran) 4 mg Q6H PRN IVP Nausea & Vomiting 07/29/16 20:30 08/28/16 20:29 Polyethylene Glycol (Miralax) 17 gm DAILYPRN PRN ORAL Constipation 07/29/16 20:30 08/28/16 20:29 Potassium Chloride (K-Dur) 40 meq TWICE A DAY ORAL 08/01/16 18:00 08/31/16 17:59 08/02/16 09:20 Temazepam (Restoril) 15 mg HSPRN PRN ORAL Insomnia 07/29/16 20:30 08/05/16 20:29 Ernie ([facility])Ashleigh NP August 02, 2016 12:35
--- NOTE | 2016-08-02 15:13 | Internal Med Progress Note ---
Subjective Date of Service: August 02, 2016 Physician Name Sg Webster Attending Physician Yan Solitario MD Current Medications Medications (Trade) Dose Ordered Sig/Anthony Route PRN Reason Start Time Stop Time Status Last Admin Dose Admin Acetaminophen (Tylenol) 650 mg Q4H PRN ORAL Fever 07/29/16 20:30 08/28/16 20:29 Albuterol/ Ipratropium (DuoNeb 0.5-3(2.5)mg/3ml) 3 ml Q4H PRN HHN Shortness of Breath 08/01/16 12:30 08/06/16 12:29 08/02/16 10:28 Aspirin (ASA) 81 mg DAILY ORAL 07/30/16 09:00 08/29/16 08:59 08/02/16 09:20 Dextrose (Dextrose 50%) STAT PRN IV Hypoglycemia 07/29/16 20:30 08/28/16 20:29 Diltiazem HCl (Cardizem CD) 180 mg DAILY ORAL 07/30/16 09:00 08/29/16 08:59 08/02/16 09:20 Furosemide (Lasix) 40 mg EVERY 12 HOURS IV 07/29/16 21:00 08/28/16 20:59 08/02/16 09:21 Heparin Sodium (Porcine) (Heparin 5000 units/ml) 5,000 units EVERY 12 HOURS SUBQ 07/29/16 21:00 08/28/16 20:59 08/02/16 09:23 Insulin Aspart (NovoLOG) BEFORE MEALS AND HS SUBQ 07/29/16 21:00 08/28/16 20:59 08/02/16 12:09 Montelukast Sodium (Singulair) 10 mg DAILY ORAL 07/30/16 09:00 08/29/16 08:59 08/02/16 09:20 Morphine Sulfate (Morphine Sulfate) 2 mg Q4H PRN IVP For Pain 07/29/16 20:30 08/05/16 20:29 08/02/16 13:30 Ondansetron HCl (Zofran) 4 mg Q6H PRN IVP Nausea & Vomiting 07/29/16 20:30 08/28/16 20:29 Polyethylene Glycol (Miralax) 17 gm DAILYPRN PRN ORAL Constipation 07/29/16 20:30 6/16/17 20:29 Potassium Chloride (K-Dur) 40 meq TWICE A DAY ORAL 08/01/16 18:00 08/31/16 17:59 08/02/16 09:20 Temazepam (Restoril) 15 mg HSPRN PRN ORAL Insomnia 07/29/16 20:30 08/05/16 20:29 Allergies: Coded Allergies: PENICILLINS (Verified Allergy, Intermediate, Hives, 07/09/16) ROS Limited/Unobtainable: No Constitutional: Reports: no symptoms HEENT: Reports: no symptoms Cardiovascular: Reports: no symptoms Respiratory: Reports: shortness of breath Gastrointestinal/Abdominal: Reports: no symptoms Genitourinary: Reports: no symptoms Neurologic/Psychiatric: Reports: no symptoms Subjective 70 YO F with H/O asthma vs COPD admitted with cough and shortness of breath. Cover for Int Med-Dr Solitario. C/O feet swelling Objective Last Vital Signs Date Time Temp Pulse Resp B/P Pulse Ox O2 Delivery O2 Flow Rate FiO2 08/02/16 14:00 97.3 08/02/16 12:00 100 20 145/68 98 Nasal Cannula 2.0 08/02/16 10:28 28 Laboratory Tests Test 08/02/16 04:45 White Blood Count 9.0 K/UL (4.8-10.8) Red Blood Count 3.48 M/UL (4.20-5.40) L Hemoglobin 9.7 G/DL (12.0-16.0) L Hematocrit 29.3 % (37.0-47.0) L Mean Corpuscular Volume 84 FL (80-99) Mean Corpuscular Hemoglobin 27.8 PG (27.0-31.0) Mean Corpuscular Hemoglobin Concent 33.0 G/DL (32.0-36.0) Red Cell Distribution Width 13.6 % (11.6-14.8) Platelet Count 331 K/UL (150-450) Mean Platelet Volume 8.5 FL (6.5-10.1) Neutrophils (%) (Auto) 56.4 % (45.0-75.0) Lymphocytes (%) (Auto) 28.8 % (20.0-45.0) Monocytes (%) (Auto) 11.6 % (1.0-10.0) H Eosinophils (%) (Auto) 2.1 % (0.0-3.0) Basophils (%) (Auto) 1.2 % (0.0-2.0) Sodium Level 140 mEQ/L (135-145) Potassium Level 3.8 mEQ/L (3.4-4.9) Chloride Level 92 mEQ/L (98-107) L Carbon Dioxide Level 35 mEQ/L (20-30) H Anion Gap 13 (5-15) Blood Urea Nitrogen 6 mg/dL (7-23) L Creatinine 0.9 mg/dL (0.5-0.9) Estimat Glomerular Filtration Rate > 60 mL/min (>60) Glucose Level 116 mg/dL (74-106) H Calcium Level 9.6 mg/dL (8.6-10.2) Magnesium Level 2.0 mg/dL (1.7-2.5) Pro-B-Type Natriuretic Peptide 356 pg/mL (0-125) H Intake and Output 08/01/16 08/02/16 19:00 07:00 Intake Total 830 ml Output Total 700 ml Balance 830 ml -700 ml Intake Oral 320 ml IV Total 510 ml Output Urine Total 700 ml # Voids 6 # Bowel Movements 4 1 Objective General: obese; alert, cooperative, no distress, appears stated age Head: normocephalic, without obvious abnormality, atraumatic Eyes: conjunctivae/corneas clear. PERRL, EOM's intact Throat: lips, mucosa, and tongue normal. MMM Neck: supple, symmetrical, trachea midline, and no JVD Lungs: Few wheezed bilat; otherwise, clear to auscultation bilaterally Heart: regular rate and rhythm, S1, S2 normal, no murmur, click, rub or gallop Abdomen: soft, non-tender, non-distended, bowel sounds normal; no masses or organomegaly Extremities: extremities normal, atraumatic, no cyanosis; trace pedal edema Pulses: 2+ and symmetric Skin: skin color, texture, turgor normal; no rashes or lesions Neurologic: grossly normal, no focal deficits Assessment/Plan Problem List: (1) Pleuritic chest pain (2) Edema of both legs Assessment & Plan: Cont IV lasix. Incr lasix to 40 mg BID (3) Cough (4) Shortness of breath (5) COPD exacerbation Assessment & Plan: See pulmonary note; Continue duoneb. See ID note; cont levaquin and aztreonam. (6) Diabetes mellitus type II, uncontrolled Assessment & Plan: Cont novolog sliding scale. (7) Hypertension Assessment & Plan: Cont cardizem. (8) Morbid obesity (9) CHF (congestive heart failure) Assessment & Plan: Diastolic dysfunction. LVEF=55-60%. See cardiology note. Status: progressing Assessment/Plan Discharge planning. SG WEBSTER August 02, 2016 15:13
[2016-08-02 16:00] VITALS: BP 150/86
[2016-08-02 20:00] VITALS: BP 156/72
[2016-08-03] VITALS: BP 120/65
[2016-08-03] MEDS: Morphine Sulfate 2mg/ml Inj IVP PRN ×4 (03:34→13:57)
[2016-08-03 04:00] VITALS: BP 148/72
[2016-08-03] MEDS: NovoLOG Insulin Flexpen SUBQ SCH ×4 (06:03→21:02)
[2016-08-03 07:39] LABS: BASOPHILS % (AUTO) 1.7 % (0.0-2.0); MEAN CORPUSCULAR HEMOGLOBIN 27.6 PG (27.0-31.0); MEAN CORPUSCULAR HGB CONC 32.8 G/DL (32.0-36.0); MEAN CORPUSCULAR VOLUME 84 FL (80-99); MEAN PLATELET VOLUME 7.6 FL (6.5-10.1); MONOCYTES % (AUTO) 12.4 % (1.0-10.0); NEUTROPHILS % (AUTO) 59.9 % (45.0-75.0); PLATELET COUNT 379 K/UL (150-450); RED BLOOD COUNT 3.73 M/UL (4.20-5.40); RED CELL DISTRIBUTION WIDTH 13.1 % (11.6-14.8); WHITE BLOOD COUNT 9.3 K/UL (4.8-10.8)
[2016-08-03 08:00] VITALS: BP 109/50
[2016-08-03] MEDS: Aspirin Baby 81mg ORAL SCH (08:05)
[2016-08-03] MEDS: Diltiazem CD 180mg cap ORAL SCH (08:06)
[2016-08-03] MEDS: Montelukast 10mg tablet ORAL SCH (08:06)
[2016-08-03] MEDS: Heparin 5000 units/ml inj SUBQ SCH ×2 (08:07→21:00)
[2016-08-03 08:09] LABS: ANION GAP 11 (5-15); CALCIUM 9.5 mg/dL (8.6-10.2); CARBON DIOXIDE 36 mEQ/L (20-30); CHLORIDE 91 mEQ/L (98-107); CREATININE 0.9 mg/dL (0.5-0.9); GLOMERULAR FILTRATION RATE > 60 mL/min (>60); HEMOLYSIS 0; SODIUM 138 mEQ/L (135-145)
--- NOTE | 2016-08-03 09:34 | Infectious Diseases Prog Note ---
Assessment/Plan Assessment/Plan A: Leukocytosis SP Rx CAPn versus bronchitis , SP Rx Chest x-ray: Possible vascular interstitial edema HTN CHF COPD Osteoarthritis Diabetes PLAN: monitor pt off of AB Rx 08/02 SP Levaquin and aztreonam d# 5 Monitor CBC Monitor BMP Monitor chest x-ray Subjective Allergies: Coded Allergies: PENICILLINS (Verified Allergy, Intermediate, Hives, 07/09/16) Subjective afebrile Objective Vital Signs Last 24 Hour Vital Signs Date Time Temp Pulse Resp B/P Pulse Ox O2 Delivery O2 Flow Rate FiO2 08/03/16 08:06 64 148/72 08/03/16 08:00 97.9 92 18 109/50 99 Nasal Cannula 2.0 08/03/16 07:42 Nasal Cannula 2.0 28 08/03/16 07:42 99 Nasal Cannula 2.0 28 08/03/16 07:42 64 20 Nasal Cannula 2.0 08/03/16 04:04 97.3 08/03/16 04:00 98.1 88 20 148/72 97 Nasal Cannula 2.0 08/03/16 00:00 97.3 99 18 120/65 95 Nasal Cannula 2.0 08/02/16 20:15 Nasal Cannula 2.0 28 08/02/16 20:15 99 Nasal Cannula 2.0 28 08/02/16 20:14 99 20 Nasal Cannula 2.0 08/02/16 20:00 98.0 96 20 156/72 97 Room Air 08/02/16 17:44 105 20 99 Nasal Cannula 2.0 28 08/02/16 17:44 28 08/02/16 17:43 107 20 98 Nasal Cannula 2.0 08/02/16 16:00 97.3 95 20 150/86 98 Nasal Cannula 2.0 08/02/16 12:00 97.3 100 20 145/68 98 Nasal Cannula 2.0 08/02/16 10:28 28 08/02/16 10:28 94 22 96 Nasal Cannula 2.0 28 08/02/16 10:28 96 20 98 Nasal Cannula 2.0 28 Height (Feet): 5 Height (Inches): 3.00 Weight (Pounds): 249 HEENT: anicteric Respiratory/Chest: no accessory muscle use Cardiovascular: regularly irregular Abdomen: no organomegaly Laboratory Tests Test 08/03/16 07:25 White Blood Count 9.3 K/UL (4.8-10.8) Red Blood Count 3.73 M/UL (4.20-5.40) L Hemoglobin 10.3 G/DL (12.0-16.0) L Hematocrit 31.4 % (37.0-47.0) L Mean Corpuscular Volume 84 FL (80-99) Mean Corpuscular Hemoglobin 27.6 PG (27.0-31.0) Mean Corpuscular Hemoglobin Concent 32.8 G/DL (32.0-36.0) Red Cell Distribution Width 13.1 % (11.6-14.8) Platelet Count 379 K/UL (150-450) Mean Platelet Volume 7.6 FL (6.5-10.1) Neutrophils (%) (Auto) 59.9 % (45.0-75.0) Lymphocytes (%) (Auto) 24.0 % (20.0-45.0) Monocytes (%) (Auto) 12.4 % (1.0-10.0) H Eosinophils (%) (Auto) 2.0 % (0.0-3.0) Basophils (%) (Auto) 1.7 % (0.0-2.0) Sodium Level 138 mEQ/L (135-145) Potassium Level 4.0 mEQ/L (3.4-4.9) Chloride Level 91 mEQ/L (98-107) L Carbon Dioxide Level 36 mEQ/L (20-30) H Anion Gap 11 (5-15) Blood Urea Nitrogen 6 mg/dL (7-23) L Creatinine 0.9 mg/dL (0.5-0.9) Estimat Glomerular Filtration Rate > 60 mL/min (>60) Glucose Level 114 mg/dL (74-106) H Calcium Level 9.5 mg/dL (8.6-10.2) Current Medications Medications (Trade) Dose Ordered Sig/Anthony Route PRN Reason Start Time Stop Time Status Last Admin Dose Admin Acetaminophen (Tylenol) 650 mg Q4H PRN ORAL Fever 07/29/16 20:30 08/28/16 20:29 Albuterol/ Ipratropium (DuoNeb 0.5-3(2.5)mg/3ml) 3 ml Q4H PRN HHN Shortness of Breath 08/01/16 12:30 08/06/16 12:29 08/02/16 17:43 Aspirin (ASA) 81 mg DAILY ORAL 07/30/16 09:00 08/29/16 08:59 08/03/16 08:05 Dextrose (Dextrose 50%) STAT PRN IV Hypoglycemia 07/29/16 20:30 08/28/16 20:29 Diltiazem HCl (Cardizem CD) 180 mg DAILY ORAL 07/30/16 09:00 08/29/16 08:59 08/03/16 08:06 Furosemide (Lasix) 40 mg EVERY 12 HOURS IV 07/29/16 21:00 08/28/16 20:59 08/02/16 20:42 Heparin Sodium (Porcine) (Heparin 5000 units/ml) 5,000 units EVERY 12 HOURS SUBQ 07/29/16 21:00 08/28/16 20:59 08/03/16 08:07 Insulin Aspart (NovoLOG) BEFORE MEALS AND HS SUBQ 07/29/16 21:00 08/28/16 20:59 08/03/16 06:03 Montelukast Sodium (Singulair) 10 mg DAILY ORAL 07/30/16 09:00 08/29/16 08:59 08/03/16 08:06 Morphine Sulfate (Morphine Sulfate) 2 mg Q4H PRN IVP For Pain 07/29/16 20:30 08/05/16 20:29 08/03/16 03:34 Ondansetron HCl (Zofran) 4 mg Q6H PRN IVP Nausea & Vomiting 07/29/16 20:30 08/28/16 20:29 Polyethylene Glycol (Miralax) 17 gm DAILYPRN PRN ORAL Constipation 07/29/16 20:30 08/28/16 20:29 Potassium Chloride (K-Dur) 40 meq TWICE A DAY ORAL 08/01/16 18:00 08/31/16 17:59 08/03/16 08:05 Temazepam (Restoril) 15 mg HSPRN PRN ORAL Insomnia 07/29/16 20:30 08/05/16 20:29 GAY SANTOS M.D. August 03, 2016 09:34
--- NOTE | 2016-08-03 10:40 | Internal Med Progress Note ---
Subjective Date of Service: August 03, 2016 Physician Name Sg Webster Attending Physician Yan Solitario MD Current Medications Medications (Trade) Dose Ordered Sig/Anthony Route PRN Reason Start Time Stop Time Status Last Admin Dose Admin Acetaminophen (Tylenol) 650 mg Q4H PRN ORAL Fever 07/29/16 20:30 08/28/16 20:29 Albuterol/ Ipratropium (DuoNeb 0.5-3(2.5)mg/3ml) 3 ml Q4H PRN HHN Shortness of Breath 08/01/16 12:30 08/06/16 12:29 08/02/16 17:43 Aspirin (ASA) 81 mg DAILY ORAL 07/30/16 09:00 08/29/16 08:59 08/03/16 08:05 Dextrose (Dextrose 50%) STAT PRN IV Hypoglycemia 07/29/16 20:30 08/28/16 20:29 Diltiazem HCl (Cardizem CD) 180 mg DAILY ORAL 07/30/16 09:00 08/29/16 08:59 08/03/16 08:06 Furosemide (Lasix) 40 mg EVERY 12 HOURS IV 07/29/16 21:00 08/28/16 20:59 08/03/16 09:46 Gabapentin (Neurontin) 300 mg THREE TIMES A DAY ORAL 08/03/16 10:45 09/02/16 10:44 UNV Heparin Sodium (Porcine) (Heparin 5000 units/ml) 5,000 units EVERY 12 HOURS SUBQ 07/29/16 21:00 08/28/16 20:59 08/03/16 08:07 Insulin Aspart (NovoLOG) BEFORE MEALS AND HS SUBQ 07/29/16 21:00 08/28/16 20:59 08/03/16 06:03 Levofloxacin (Levaquin) 500 mg DAILY ORAL 08/03/16 10:45 08/10/16 10:44 UNV Montelukast Sodium (Singulair) 10 mg DAILY ORAL 07/30/16 09:00 08/29/16 08:59 08/03/16 08:06 Morphine Sulfate (Morphine Sulfate) 2 mg Q4H PRN IVP For Pain 07/29/16 20:30 08/05/16 20:29 08/03/16 09:47 Ondansetron HCl (Zofran) 4 mg Q6H PRN IVP Nausea & Vomiting 07/29/16 20:30 08/28/16 20:29 Polyethylene Glycol (Miralax) 17 gm DAILYPRN PRN ORAL Constipation 07/29/16 20:30 08/28/16 20:29 Potassium Chloride (K-Dur) 40 meq TWICE A DAY ORAL 08/01/16 18:00 08/31/16 17:59 08/03/16 08:05 Temazepam (Restoril) 15 mg HSPRN PRN ORAL Insomnia 07/29/16 20:30 08/05/16 20:29 Allergies: Coded Allergies: PENICILLINS (Verified Allergy, Intermediate, Hives, 07/09/16) ROS Limited/Unobtainable: No Constitutional: Reports: no symptoms HEENT: Reports: no symptoms Cardiovascular: Reports: no symptoms Respiratory: Reports: cough, shortness of breath Gastrointestinal/Abdominal: Reports: no symptoms Genitourinary: Reports: no symptoms Neurologic/Psychiatric: Reports: no symptoms Subjective 70 YO F with H/O asthma vs COPD admitted with cough and shortness of breath. Cover for Int Med-Dr Solitario. C/O feet pain Objective Last Vital Signs Date Time Temp Pulse Resp B/P Pulse Ox O2 Delivery O2 Flow Rate FiO2 08/03/16 08:06 64 148/72 08/03/16 08:00 97.9 18 99 Nasal Cannula 2.0 08/03/16 07:42 28 Laboratory Tests Test 08/03/16 07:25 White Blood Count 9.3 K/UL (4.8-10.8) Red Blood Count 3.73 M/UL (4.20-5.40) L Hemoglobin 10.3 G/DL (12.0-16.0) L Hematocrit 31.4 % (37.0-47.0) L Mean Corpuscular Volume 84 FL (80-99) Mean Corpuscular Hemoglobin 27.6 PG (27.0-31.0) Mean Corpuscular Hemoglobin Concent 32.8 G/DL (32.0-36.0) Red Cell Distribution Width 13.1 % (11.6-14.8) Platelet Count 379 K/UL (150-450) Mean Platelet Volume 7.6 FL (6.5-10.1) Neutrophils (%) (Auto) 59.9 % (45.0-75.0) Lymphocytes (%) (Auto) 24.0 % (20.0-45.0) Monocytes (%) (Auto) 12.4 % (1.0-10.0) H Eosinophils (%) (Auto) 2.0 % (0.0-3.0) Basophils (%) (Auto) 1.7 % (0.0-2.0) Sodium Level 138 mEQ/L (135-145) Potassium Level 4.0 mEQ/L (3.4-4.9) Chloride Level 91 mEQ/L (98-107) L Carbon Dioxide Level 36 mEQ/L (20-30) H Anion Gap 11 (5-15) Blood Urea Nitrogen 6 mg/dL (7-23) L Creatinine 0.9 mg/dL (0.5-0.9) Estimat Glomerular Filtration Rate > 60 mL/min (>60) Glucose Level 114 mg/dL (74-106) H Calcium Level 9.5 mg/dL (8.6-10.2) Intake and Output 08/02/16 08/03/16 19:00 07:00 Intake Total 800 ml Balance 800 ml Intake Oral 800 ml # Voids 6 Objective General: obese; alert, cooperative, no distress, appears stated age Head: normocephalic, without obvious abnormality, atraumatic Eyes: conjunctivae/corneas clear. PERRL, EOM's intact Throat: lips, mucosa, and tongue normal. MMM Neck: supple, symmetrical, trachea midline, and no JVD Lungs: Few wheezed bilat; otherwise, clear to auscultation bilaterally Heart: regular rate and rhythm, S1, S2 normal, no murmur, click, rub or gallop Abdomen: soft, non-tender, non-distended, bowel sounds normal; no masses or organomegaly Extremities: extremities normal, atraumatic, no cyanosis; trace pedal edema Pulses: 2+ and symmetric Skin: skin color, texture, turgor normal; no rashes or lesions Neurologic: grossly normal, no focal deficits Assessment/Plan Problem List: (1) Pleuritic chest pain (2) Edema of both legs Assessment & Plan: Cont IV lasix. Incr lasix to 40 mg BID (3) Cough (4) Shortness of breath (5) COPD exacerbation Assessment & Plan: See pulmonary note; Continue duoneb. See ID note; cont levaquin and aztreonam. (6) Diabetes mellitus type II, uncontrolled Assessment & Plan: Cont novolog sliding scale. (7) Hypertension Assessment & Plan: Cont cardizem. (8) Morbid obesity (9) CHF (congestive heart failure) Assessment & Plan: Diastolic dysfunction. LVEF=55-60%. See cardiology note. (10) Diabetic peripheral neuropathy Assessment & Plan: Start neurontin Assessment/Plan Discharge home today with home health SG WEBSTER August 03, 2016 10:40
--- NOTE | 2016-08-03 10:49 | Diagnostic Imaging Report ---
Indication: SOB Technique: One view of the chest Comparison: 07/29/2016 Findings: Mixed interstitial and alveolar opacities at the right midlung and lung base appears slightly improved. The left lung is clear. Heart remains enlarged. Impression: Slightly improved but persistent parenchymal disease at the right mid and lower lung, over 5 days Stable cardiomegaly
[2016-08-03] MEDS: Levofloxacin 500mg tab ORAL SCH (11:43)
[2016-08-03 12:05] VITALS: BP 139/100
[2016-08-03] MEDS: DuoNeb 0.5-3(2.5)mg/3ml neb HHN PRN ×2 (13:43→21:00)
[2016-08-03 16:00] VITALS: BP 129/90
--- NOTE | 2016-08-03 17:37 | Cardiac Electrophysiology PN ---
Assessment/Plan Assessment/Plan 1. CHF due to Diastolic dysfunction. Echo showed EF 55-60% . Decrease Lasix to 40 mg IV daily. BNP down from 1265 to 356. 2. Hypertension. Continue Lasix and Cardizem DC 180. 3. Chronic obstructive pulmonary disease. 4. Morbid obesity. 5. PNA on Abx per Dr Gonzalez 6. Hypokalemia due to Lasix. Replaced DW RN Subjective Subjective Comfortable in NAD. No chest pain or SOB. Off Abx now. Objective Last 24 Hour Vital Signs Date Time Temp Pulse Resp B/P Pulse Ox O2 Delivery O2 Flow Rate FiO2 08/03/16 16:00 97.4 58 20 129/90 99 Nasal Cannula 2.0 08/03/16 14:46 98.2 08/03/16 13:52 97 18 99 Nasal Cannula 2.0 28 08/03/16 13:45 28 08/03/16 13:45 96 20 99 Nasal Cannula 2.0 28 08/03/16 12:05 98.2 52 22 139/100 98 Nasal Cannula 2.0 08/03/16 08:06 64 148/72 08/03/16 08:00 97.9 92 18 109/50 99 Nasal Cannula 2.0 08/03/16 07:42 Nasal Cannula 2.0 28 08/03/16 07:42 99 Nasal Cannula 2.0 28 08/03/16 07:42 64 20 Nasal Cannula 2.0 08/03/16 04:00 98.1 88 20 148/72 97 Nasal Cannula 2.0 08/03/16 00:00 97.3 99 18 120/65 95 Nasal Cannula 2.0 08/02/16 20:15 Nasal Cannula 2.0 28 08/02/16 20:15 99 Nasal Cannula 2.0 28 08/02/16 20:14 99 20 Nasal Cannula 2.0 08/02/16 20:00 98.0 96 20 156/72 97 Room Air 08/02/16 17:44 105 20 99 Nasal Cannula 2.0 28 08/02/16 17:44 28 08/02/16 17:43 107 20 98 Nasal Cannula 2.0 28 Intake and Output 08/02/16 08/03/16 19:00 07:00 Intake Total 800 ml Balance 800 ml Intake Oral 800 ml # Voids 6 Laboratory Tests Test 08/03/16 07:25 White Blood Count 9.3 K/UL (4.8-10.8) Red Blood Count 3.73 M/UL (4.20-5.40) L Hemoglobin 10.3 G/DL (12.0-16.0) L Hematocrit 31.4 % (37.0-47.0) L Mean Corpuscular Volume 84 FL (80-99) Mean Corpuscular Hemoglobin 27.6 PG (27.0-31.0) Mean Corpuscular Hemoglobin Concent 32.8 G/DL (32.0-36.0) Red Cell Distribution Width 13.1 % (11.6-14.8) Platelet Count 379 K/UL (150-450) Mean Platelet Volume 7.6 FL (6.5-10.1) Neutrophils (%) (Auto) 59.9 % (45.0-75.0) Lymphocytes (%) (Auto) 24.0 % (20.0-45.0) Monocytes (%) (Auto) 12.4 % (1.0-10.0) H Eosinophils (%) (Auto) 2.0 % (0.0-3.0) Basophils (%) (Auto) 1.7 % (0.0-2.0) Sodium Level 138 mEQ/L (135-145) Potassium Level 4.0 mEQ/L (3.4-4.9) Chloride Level 91 mEQ/L (98-107) L Carbon Dioxide Level 36 mEQ/L (20-30) H Anion Gap 11 (5-15) Blood Urea Nitrogen 6 mg/dL (7-23) L Creatinine 0.9 mg/dL (0.5-0.9) Estimat Glomerular Filtration Rate > 60 mL/min (>60) Glucose Level 114 mg/dL (74-106) H Calcium Level 9.5 mg/dL (8.6-10.2) Objective HEAD AND NECK: No JVD. LUNGS: Decreased breath sounds CARDIOVASCULAR: Regular S1 and S2 with no gallop or murmur. ABDOMEN: Obese. EXTREMITIES: 2+ pitting edema. STEF GIBBS August 03, 2016 17:37
[2016-08-03 19:59] VITALS: BP 137/67
[2016-08-03] MEDS: Norco 5mg/325mg tab ORAL PRN (20:01)
--- NOTE | 2016-08-03 23:01 | Pulmonology Progress Note ---
Assessment/Plan Problems: (1) ACS (acute coronary syndrome) (2) COPD exacerbation (3) CHF (congestive heart failure) (4) Hypertension (5) Diabetes mellitus type II, uncontrolled Assessment/Plan diuresing well, on lasix IV qd respiratory treatment sliding scale diabetic diet IV antibiotics dc planning Subjective ROS Limited/Unobtainable: No Constitutional: Reports: no symptoms HEENT: Repors: no symptoms Respiratory: Reports: no symptoms Allergies: Coded Allergies: PENICILLINS (Verified Allergy, Intermediate, Hives, 07/09/16) Objective Last 24 Hour Vital Signs Date Time Temp Pulse Resp B/P Pulse Ox O2 Delivery O2 Flow Rate FiO2 08/03/16 21:00 99 20 100 Nasal Cannula 2.0 28 08/03/16 20:59 94 20 99 Nasal Cannula 2.0 28 08/03/16 19:59 98.8 100 17 137/67 95 Room Air 08/03/16 19:30 94 20 Nasal Cannula 2.0 28 08/03/16 19:30 98 Nasal Cannula 2.0 28 08/03/16 19:30 Nasal Cannula 2.0 28 08/03/16 16:00 97.4 58 20 129/90 99 Nasal Cannula 2.0 08/03/16 14:46 98.2 08/03/16 13:52 97 18 99 Nasal Cannula 2.0 08/03/16 13:45 28 08/03/16 13:45 96 20 99 Nasal Cannula 2.0 28 08/03/16 12:05 98.2 52 22 139/100 98 Nasal Cannula 2.0 08/03/16 08:06 64 148/72 08/03/16 08:00 97.9 92 18 109/50 99 Nasal Cannula 2.0 08/03/16 07:42 Nasal Cannula 2.0 28 08/03/16 07:42 99 Nasal Cannula 2.0 28 08/03/16 07:42 64 20 Nasal Cannula 2.0 08/03/16 04:00 98.1 88 20 148/72 97 Nasal Cannula 2.0 08/03/16 00:00 97.3 99 18 120/65 95 Nasal Cannula 2.0 Intake and Output 08/02/16 08/03/16 19:00 07:00 Intake Total 1250 ml Balance 1250 ml Intake Oral 1250 ml # Voids 7 General Appearance: WD/WN HEENT: normocephalic Respiratory/Chest: chest wall non-tender, lungs clear Breasts: no masses Cardiovascular: normal peripheral pulses Abdomen: normal bowel sounds, soft, non tender Genitourinary: normal external genitalia Neurologic/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 Lymphatic: no neck adenopathy Laboratory Tests 08/03/16 07:25: White Blood Count 9.3, Red Blood Count 3.73L, Hemoglobin 10.3L, Hematocrit 31.4L , Mean Corpuscular Volume 84, Mean Corpuscular Hemoglobin 27.6, Mean Corpuscular Hemoglobin Concent 32.8, Red Cell Distribution Width 13.1, Platelet Count 379, Mean Platelet Volume 7.6, Neutrophils (%) (Auto) 59.9, Lymphocytes (% ) (Auto) 24.0, Monocytes (%) (Auto) 12.4H, Eosinophils (%) (Auto) 2.0, Basophils (%) (Auto) 1.7, Sodium Level 138, Potassium Level 4.0, Chloride Level 91L, Carbon Dioxide Level 36H, Anion Gap 11, Blood Urea Nitrogen 6L, Creatinine 0.9, Estimat Glomerular Filtration Rate > 60, Glucose Level 114H, Calcium Level 9.5 Current Medications Medications (Trade) Dose Ordered Sig/Anthony Route PRN Reason Start Time Stop Time Status Last Admin Dose Admin Acetaminophen (Tylenol) 650 mg Q4H PRN ORAL Fever 07/29/16 20:30 08/28/16 20:29 Acetaminophen/ Hydrocodone Bitart ([place] 5/325) 1 tab Q8H PRN ORAL For Pain 08/03/16 18:15 08/10/16 18:14 08/03/16 20:01 Albuterol/ Ipratropium (DuoNeb 0.5-3(2.5)mg/3ml) 3 ml Q4H PRN HHN Shortness of Breath 08/01/16 12:30 08/06/16 12:29 08/03/16 21:00 Aspirin (ASA) 81 mg DAILY ORAL 07/30/16 09:00 08/29/16 08:59 08/03/16 08:05 Dextrose (Dextrose 50%) STAT PRN IV Hypoglycemia 07/29/16 20:30 08/28/16 20:29 Diltiazem HCl (Cardizem CD) 180 mg DAILY ORAL 07/30/16 09:00 08/29/16 08:59 08/03/16 08:06 Furosemide (Lasix) 40 mg DAILY IV 08/04/16 09:00 09/03/16 08:59 Gabapentin (Neurontin) 300 mg THREE TIMES A DAY ORAL 08/03/16 10:45 09/02/16 10:44 08/03/16 18:23 Heparin Sodium (Porcine) (Heparin 5000 units/ml) 5,000 units EVERY 12 HOURS SUBQ 07/29/16 21:00 08/28/16 20:59 08/03/16 21:00 Insulin Aspart (NovoLOG) BEFORE MEALS AND HS SUBQ 07/29/16 21:00 08/28/16 20:59 08/03/16 21:02 Levofloxacin (Levaquin) 500 mg DAILY ORAL 08/03/16 11:00 08/10/16 10:59 08/03/16 11:43 Montelukast Sodium (Singulair) 10 mg DAILY ORAL 07/30/16 09:00 08/29/16 08:59 08/03/16 08:06 Ondansetron HCl (Zofran) 4 mg Q6H PRN IVP Nausea & Vomiting 07/29/16 20:30 08/28/16 20:29 Polyethylene Glycol (Miralax) 17 gm DAILYPRN PRN ORAL Constipation 07/29/16 20:30 08/28/16 20:29 Potassium Chloride (K-Dur) 40 meq TWICE A DAY ORAL 08/01/16 18:00 08/31/16 17:59 08/03/16 18:23 Temazepam (Restoril) 15 mg HSPRN PRN ORAL Insomnia 07/29/16 20:30 08/05/16 20:29 SOPHIA IBARRA August 03, 2016 23:01
[2016-08-04] VITALS: BP 117/64
[2016-08-04 04:00] VITALS: BP 119/69
[2016-08-04] MEDS: Norco 5mg/325mg tab ORAL PRN ×3 (05:59→21:05)
[2016-08-04] MEDS: NovoLOG Insulin Flexpen SUBQ SCH ×4 (06:12→21:07)
[2016-08-04] MEDS: DuoNeb 0.5-3(2.5)mg/3ml neb HHN PRN (08:35)
[2016-08-04 08:55] VITALS: BP 108/51
[2016-08-04] MEDS: Diltiazem CD 180mg cap ORAL SCH (09:00)
[2016-08-04] MEDS: Aspirin Baby 81mg ORAL SCH (09:16)
[2016-08-04] MEDS: Levofloxacin 500mg tab ORAL SCH (09:16)
[2016-08-04] MEDS: Montelukast 10mg tablet ORAL SCH (09:16)
[2016-08-04] MEDS: Heparin 5000 units/ml inj SUBQ SCH ×2 (09:18→21:06)
--- NOTE | 2016-08-04 09:29 | Infectious Diseases Prog Note ---
Assessment/Plan Assessment/Plan A: low grade fever x `1 ? source of infection Leukocytosis SP Rx CAPn versus bronchitis , SP Rx Chest x-ray: Slightly improved but persistent parenchymal disease at the right mid and lower lung, over 5 days HTN CHF COPD Osteoarthritis Diabetes PLAN: monitor pt off of AB Rx , if more episode of fever will re start Ab Rx 08/02 SP Levaquin and aztreonam d# 5 Monitor CBC Monitor BMP Monitor chest x-ray Subjective Allergies: Coded Allergies: PENICILLINS (Verified Allergy, Intermediate, Hives, 07/09/16) Subjective low grade fever x `1 Objective Vital Signs Last 24 Hour Vital Signs Date Time Temp Pulse Resp B/P Pulse Ox O2 Delivery O2 Flow Rate FiO2 08/04/16 09:00 97 108/51 08/04/16 08:55 100.0 97 18 108/51 97 Nasal Cannula 08/04/16 08:47 88 18 100 Nasal Cannula 2.0 28 08/04/16 08:38 85 18 98 Nasal Cannula 2.0 28 08/04/16 08:37 86 18 Nasal Cannula 2.0 28 08/04/16 08:37 Nasal Cannula 2.0 28 08/04/16 08:37 98 Nasal Cannula 2.0 28 08/04/16 04:00 99.3 90 20 119/69 98 Nasal Cannula 08/04/16 00:00 97.5 74 16 117/64 97 Nasal Cannula 08/03/16 21:00 99 20 100 Nasal Cannula 2.0 28 08/03/16 20:59 94 20 99 Nasal Cannula 2.0 28 08/03/16 19:59 98.8 100 17 137/67 95 Room Air 08/03/16 19:30 94 20 Nasal Cannula 2.0 28 08/03/16 19:30 98 Nasal Cannula 2.0 28 08/03/16 19:30 Nasal Cannula 2.0 28 08/03/16 16:00 97.4 58 20 129/90 99 Nasal Cannula 2.0 08/03/16 14:46 98.2 08/03/16 13:52 97 18 99 Nasal Cannula 2.0 28 08/03/16 13:45 28 08/03/16 13:45 96 20 99 Nasal Cannula 2.0 28 08/03/16 12:05 98.2 52 22 139/100 98 Nasal Cannula 2.0 Height (Feet): 5 Height (Inches): 3.00 Weight (Pounds): 249 HEENT: anicteric Respiratory/Chest: normal breath sounds Cardiovascular: regular rhythm Abdomen: non distended Current Medications Medications (Trade) Dose Ordered Sig/Anthony Route PRN Reason Start Time Stop Time Status Last Admin Dose Admin Acetaminophen (Tylenol) 650 mg Q4H PRN ORAL Fever 07/29/16 20:30 08/28/16 20:29 Acetaminophen/ Hydrocodone Bitart ([place] 5/325) 1 tab Q8H PRN ORAL For Pain 08/03/16 18:15 08/10/16 18:14 08/04/16 05:59 Albuterol/ Ipratropium (DuoNeb 0.5-3(2.5)mg/3ml) 3 ml Q4H PRN HHN Shortness of Breath 08/01/16 12:30 08/06/16 12:29 08/04/16 08:35 Aspirin (ASA) 81 mg DAILY ORAL 07/30/16 09:00 08/29/16 08:59 08/04/16 09:16 Dextrose (Dextrose 50%) STAT PRN IV Hypoglycemia 07/29/16 20:30 08/28/16 20:29 Diltiazem HCl (Cardizem CD) 180 mg DAILY ORAL 07/30/16 09:00 08/29/16 08:59 08/03/16 08:06 Furosemide (Lasix) 40 mg DAILY IV 08/04/16 09:00 09/03/16 08:59 08/04/16 09:17 Gabapentin (Neurontin) 300 mg THREE TIMES A DAY ORAL 08/03/16 10:45 09/02/16 10:44 08/04/16 09:16 Heparin Sodium (Porcine) (Heparin 5000 units/ml) 5,000 units EVERY 12 HOURS SUBQ 07/29/16 21:00 08/28/16 20:59 08/04/16 09:18 Insulin Aspart (NovoLOG) BEFORE MEALS AND HS SUBQ 07/29/16 21:00 08/28/16 20:59 08/04/16 06:12 Levofloxacin (Levaquin) 500 mg DAILY ORAL 08/03/16 11:00 08/10/16 10:59 08/04/16 09:16 Montelukast Sodium (Singulair) 10 mg DAILY ORAL 07/30/16 09:00 08/29/16 08:59 08/04/16 09:16 Ondansetron HCl (Zofran) 4 mg Q6H PRN IVP Nausea & Vomiting 07/29/16 20:30 08/28/16 20:29 Polyethylene Glycol (Miralax) 17 gm DAILYPRN PRN ORAL Constipation 07/29/16 20:30 08/28/16 20:29 Potassium Chloride (K-Dur) 40 meq TWICE A DAY ORAL 08/01/16 18:00 08/31/16 17:59 08/04/16 09:16 Temazepam (Restoril) 15 mg HSPRN PRN ORAL Insomnia 07/29/16 20:30 08/05/16 20:29 GAY SANTOS M.D. August 04, 2016 09:29
[2016-08-04 12:59] VITALS: BP 140/73
[2016-08-04 16:06] VITALS: BP 119/75
--- NOTE | 2016-08-04 16:28 | Cardiac Electrophysiology PN ---
Assessment/Plan Assessment/Plan 1. CHF due to Diastolic dysfunction. Echo showed EF 55-60% .On Lasix 40 mg IV daily. BNP down from 1265 to 356. 2. Hypertension. Continue Lasix and Cardizem DC 180. 3. Chronic obstructive pulmonary disease. 4. Morbid obesity. 5. PNA on po Abx per Dr Gonzalez 6. Hypokalemia due to Lasix. DW RN Subjective Subjective Comfortable in NAD off tele. Objective Last 24 Hour Vital Signs Date Time Temp Pulse Resp B/P Pulse Ox O2 Delivery O2 Flow Rate FiO2 08/04/16 16:06 97.9 95 16 119/75 97 Nasal Cannula 08/04/16 13:14 99.0 08/04/16 12:59 99.0 96 16 140/73 97 Room Air 08/04/16 09:00 97 108/51 08/04/16 08:55 100.0 97 18 108/51 97 Nasal Cannula 08/04/16 08:47 88 18 100 Nasal Cannula 2.0 28 08/04/16 08:38 85 18 98 Nasal Cannula 2.0 28 08/04/16 08:37 86 18 Nasal Cannula 2.0 28 08/04/16 08:37 Nasal Cannula 2.0 28 08/04/16 08:37 98 Nasal Cannula 2.0 28 08/04/16 04:00 99.3 90 20 119/69 98 Nasal Cannula 08/04/16 00:00 97.5 74 16 117/64 97 Nasal Cannula 08/03/16 21:00 99 20 100 Nasal Cannula 2.0 28 08/03/16 20:59 94 20 99 Nasal Cannula 2.0 28 08/03/16 19:59 98.8 100 17 137/67 95 Room Air 08/03/16 19:30 94 20 Nasal Cannula 2.0 28 08/03/16 19:30 98 Nasal Cannula 2.0 28 08/03/16 19:30 Nasal Cannula 2.0 28 Intake and Output 08/03/16 08/04/16 19:00 07:00 Intake Total 1400 ml Output Total 600 ml Balance 1400 ml -600 ml Intake Oral 1400 ml Output Urine Total 600 ml # Voids 3 # Bowel Movements 2 1 Current Medications Medications (Trade) Dose Ordered Sig/Anthony Route PRN Reason Start Time Stop Time Status Last Admin Dose Admin Acetaminophen (Tylenol) 650 mg Q4H PRN ORAL Fever 07/29/16 20:30 08/28/16 20:29 08/04/16 12:15 Acetaminophen/ Hydrocodone Bitart ([place] 5/325) 1 tab Q6H PRN ORAL For Pain 08/04/16 12:15 08/11/16 12:14 08/04/16 13:41 Albuterol/ Ipratropium (DuoNeb 0.5-3(2.5)mg/3ml) 3 ml Q4H PRN HHN Shortness of Breath 08/01/16 12:30 08/06/16 12:29 08/04/16 08:35 Aspirin (ASA) 81 mg DAILY ORAL 07/30/16 09:00 08/29/16 08:59 08/04/16 09:16 Dextrose (Dextrose 50%) STAT PRN IV Hypoglycemia 07/29/16 20:30 08/28/16 20:29 Diltiazem HCl (Cardizem CD) 180 mg DAILY ORAL 07/30/16 09:00 08/29/16 08:59 08/03/16 08:06 Furosemide (Lasix) 40 mg DAILY IV 08/04/16 09:00 09/03/16 08:59 08/04/16 09:17 Gabapentin (Neurontin) 300 mg THREE TIMES A DAY ORAL 08/03/16 10:45 09/02/16 10:44 08/04/16 13:41 Heparin Sodium (Porcine) (Heparin 5000 units/ml) 5,000 units EVERY 12 HOURS SUBQ 07/29/16 21:00 08/28/16 20:59 08/04/16 09:18 Insulin Aspart (NovoLOG) BEFORE MEALS AND HS SUBQ 07/29/16 21:00 08/28/16 20:59 08/04/16 11:56 Levofloxacin (Levaquin) 500 mg DAILY ORAL 08/03/16 11:00 08/10/16 10:59 08/04/16 09:16 Montelukast Sodium (Singulair) 10 mg DAILY ORAL 07/30/16 09:00 08/29/16 08:59 08/04/16 09:16 Ondansetron HCl (Zofran) 4 mg Q6H PRN IVP Nausea & Vomiting 07/29/16 20:30 08/28/16 20:29 Polyethylene Glycol (Miralax) 17 gm DAILYPRN PRN ORAL Constipation 07/29/16 20:30 08/28/16 20:29 Potassium Chloride (K-Dur) 40 meq TWICE A DAY ORAL 08/01/16 18:00 08/31/16 17:59 08/04/16 09:16 Temazepam (Restoril) 15 mg HSPRN PRN ORAL Insomnia 07/29/16 20:30 08/05/16 20:29 Objective HEAD AND NECK: No JVD. LUNGS: Decreased breath sounds CARDIOVASCULAR: Regular S1 and S2 with no gallop or murmur. ABDOMEN: Obese. EXTREMITIES: 2+ pitting edema. STEF GIBBS August 04, 2016 16:28
--- NOTE | 2016-08-04 19:09 | Internal Med Progress Note ---
Subjective Date of Service: August 04, 2016 Physician Name Sg Webster Attending Physician Yan Solitario MD Current Medications Medications (Trade) Dose Ordered Sig/Anthony Route PRN Reason Start Time Stop Time Status Last Admin Dose Admin Acetaminophen (Tylenol) 650 mg Q4H PRN ORAL Fever 07/29/16 20:30 08/28/16 20:29 08/04/16 12:15 Acetaminophen/ Hydrocodone Bitart ([place] 5/325) 1 tab Q6H PRN ORAL For Pain 08/04/16 12:15 08/11/16 12:14 08/04/16 13:41 Albuterol/ Ipratropium (DuoNeb 0.5-3(2.5)mg/3ml) 3 ml Q4H PRN HHN Shortness of Breath 08/01/16 12:30 08/06/16 12:29 08/04/16 08:35 Aspirin (ASA) 81 mg DAILY ORAL 07/30/16 09:00 08/29/16 08:59 08/04/16 09:16 Dextrose (Dextrose 50%) STAT PRN IV Hypoglycemia 07/29/16 20:30 08/28/16 20:29 Diltiazem HCl (Cardizem CD) 180 mg DAILY ORAL 07/30/16 09:00 08/29/16 08:59 08/03/16 08:06 Furosemide (Lasix) 40 mg DAILY IV 08/04/16 09:00 09/03/16 08:59 08/04/16 09:17 Gabapentin (Neurontin) 300 mg THREE TIMES A DAY ORAL 08/03/16 10:45 09/02/16 10:44 08/04/16 18:02 Heparin Sodium (Porcine) (Heparin 5000 units/ml) 5,000 units EVERY 12 HOURS SUBQ 07/29/16 21:00 08/28/16 20:59 08/04/16 09:18 Insulin Aspart (NovoLOG) BEFORE MEALS AND HS SUBQ 07/29/16 21:00 08/28/16 20:59 08/04/16 11:56 Levofloxacin (Levaquin) 500 mg DAILY ORAL 08/03/16 11:00 08/10/16 10:59 08/04/16 09:16 Montelukast Sodium (Singulair) 10 mg DAILY ORAL 07/30/16 09:00 08/29/16 08:59 08/04/16 09:16 Ondansetron HCl (Zofran) 4 mg Q6H PRN IVP Nausea & Vomiting 07/29/16 20:30 08/28/16 20:29 Polyethylene Glycol (Miralax) 17 gm DAILYPRN PRN ORAL Constipation 07/29/16 20:30 08/28/16 20:29 Potassium Chloride (K-Dur) 40 meq TWICE A DAY ORAL 08/01/16 18:00 08/31/16 17:59 08/04/16 18:02 Temazepam (Restoril) 15 mg HSPRN PRN ORAL Insomnia 07/29/16 20:30 08/05/16 20:29 Allergies: Coded Allergies: PENICILLINS (Verified Allergy, Intermediate, Hives, 07/09/16) ROS Limited/Unobtainable: No Constitutional: Reports: no symptoms HEENT: Reports: no symptoms Cardiovascular: Reports: no symptoms Respiratory: Reports: cough Gastrointestinal/Abdominal: Reports: no symptoms Genitourinary: Reports: no symptoms Subjective 70 YO F with H/O asthma vs COPD admitted with cough and shortness of breath. Cover for [facility] Med-Dr Solitario. Discharge on hold due to patient appeal of discharge with medicare. Objective Last Vital Signs Date Time Temp Pulse Resp B/P Pulse Ox O2 Delivery O2 Flow Rate FiO2 08/04/16 16:06 97.9 95 16 119/75 97 Nasal Cannula 08/04/16 08:47 2.0 28 Intake and Output 08/03/16 08/04/16 19:00 07:00 Intake Total 1400 ml Output Total 600 ml Balance 1400 ml -600 ml Intake Oral 1400 ml Output Urine Total 600 ml # Voids 3 # Bowel Movements 2 1 Objective General: obese; alert, cooperative, no distress, appears stated age Head: normocephalic, without obvious abnormality, atraumatic Eyes: conjunctivae/corneas clear. PERRL, EOM's intact Throat: lips, mucosa, and tongue normal. MMM Neck: supple, symmetrical, trachea midline, and no JVD Lungs: Few wheezed bilat; otherwise, clear to auscultation bilaterally Heart: regular rate and rhythm, S1, S2 normal, no murmur, click, rub or gallop Abdomen: soft, non-tender, non-distended, bowel sounds normal; no masses or organomegaly Extremities: extremities normal, atraumatic, no cyanosis; trace pedal edema Pulses: 2+ and symmetric Skin: skin color, texture, turgor normal; no rashes or lesions Neurologic: grossly normal, no focal deficits Assessment/Plan Problem List: (1) Pleuritic chest pain (2) Edema of both legs Assessment & Plan: Cont IV lasix. Incr lasix to 40 mg BID (3) Cough (4) Shortness of breath (5) COPD exacerbation Assessment & Plan: See pulmonary note; Continue duoneb. See ID note; cont levaquin and aztreonam. (6) Diabetes mellitus type II, uncontrolled Assessment & Plan: Cont novolog sliding scale. (7) Hypertension Assessment & Plan: Cont cardizem. (8) Morbid obesity (9) CHF (congestive heart failure) Assessment & Plan: Diastolic dysfunction. LVEF=55-60%. See cardiology note. (10) Diabetic peripheral neuropathy Assessment & Plan: Start neurontin Status: stable Assessment/Plan Discharge on hold due to patient appeal of discharge with medicare. SG WEBSTER August 04, 2016 19:09
[2016-08-04 19:57] VITALS: BP 143/77
--- NOTE | 2016-08-04 23:38 | Pulmonology Progress Note ---
Assessment/Plan Problems: (1) ACS (acute coronary syndrome) (2) COPD exacerbation (3) CHF (congestive heart failure) (4) Hypertension (5) Diabetes mellitus type II, uncontrolled Assessment/Plan diuresing well, on lasix respiratory treatment sliding scale diabetic diet dc planning for am Subjective ROS Limited/Unobtainable: No Interval Events: no new complains Allergies: Coded Allergies: PENICILLINS (Verified Allergy, Intermediate, Hives, 07/09/16) Objective Last 24 Hour Vital Signs Date Time Temp Pulse Resp B/P Pulse Ox O2 Delivery O2 Flow Rate FiO2 08/04/16 20:02 Nasal Cannula 2.0 28 08/04/16 20:02 98 Nasal Cannula 2.0 28 08/04/16 20:02 89 18 Nasal Cannula 2.0 08/04/16 19:57 98.2 85 20 143/77 97 Nasal Cannula 3.0 08/04/16 16:06 97.9 95 16 119/75 97 Nasal Cannula 08/04/16 13:14 99.0 08/04/16 12:59 99.0 96 16 140/73 97 Room Air 08/04/16 09:00 97 108/51 08/04/16 08:55 100.0 97 18 108/51 97 Nasal Cannula 08/04/16 08:47 88 18 100 Nasal Cannula 2.0 08/04/16 08:38 85 18 98 Nasal Cannula 2.0 08/04/16 08:37 86 18 Nasal Cannula 2.0 08/04/16 08:37 Nasal Cannula 2.0 08/04/16 08:37 98 Nasal Cannula 2.0 08/04/16 04:00 99.3 90 20 119/69 98 Nasal Cannula 08/04/16 00:00 97.5 74 16 117/64 97 Nasal Cannula Intake and Output 08/03/16 08/04/16 19:00 07:00 Intake Total 1400 ml Output Total 600 ml Balance 1400 ml -600 ml Intake Oral 1400 ml Output Urine Total 600 ml # Voids 3 # Bowel Movements 2 1 Objective General Appearance: WD/WN HEENT: normocephalic, atraumatic Respiratory/Chest: chest wall non-tender, clear Cardiovascular: normal peripheral pulses, normal rate Abdomen: normal bowel sounds, no organomegaly Genitourinary: normal external genitalia Neurologic/Psychiatric: vp director of creative strategy II-XII grossly normal Current Medications Medications (Trade) Dose Ordered Sig/Anthony Route PRN Reason Start Time Stop Time Status Last Admin Dose Admin Acetaminophen (Tylenol) 650 mg Q4H PRN ORAL Fever 07/29/16 20:30 08/28/16 20:29 08/04/16 12:15 Acetaminophen/ Hydrocodone Bitart ([place] 5/325) 1 tab Q6H PRN ORAL For Pain 08/04/16 12:15 08/11/16 12:14 08/04/16 21:05 Albuterol/ Ipratropium (DuoNeb 0.5-3(2.5)mg/3ml) 3 ml Q4H PRN HHN Shortness of Breath 08/01/16 12:30 08/06/16 12:29 08/04/16 08:35 Aspirin (ASA) 81 mg DAILY ORAL 07/30/16 09:00 08/29/16 08:59 08/04/16 09:16 Dextrose (Dextrose 50%) STAT PRN IV Hypoglycemia 07/29/16 20:30 08/28/16 20:29 Diltiazem HCl (Cardizem CD) 180 mg DAILY ORAL 07/30/16 09:00 08/29/16 08:59 08/03/16 08:06 Furosemide (Lasix) 40 mg DAILY IV 08/04/16 09:00 09/03/16 08:59 08/04/16 09:17 Gabapentin (Neurontin) 300 mg THREE TIMES A DAY ORAL 08/03/16 10:45 09/02/16 10:44 08/04/16 18:02 Heparin Sodium (Porcine) (Heparin 5000 units/ml) 5,000 units EVERY 12 HOURS SUBQ 07/29/16 21:00 08/28/16 20:59 08/04/16 21:06 Insulin Aspart (NovoLOG) BEFORE MEALS AND HS SUBQ 07/29/16 21:00 08/28/16 20:59 08/04/16 21:07 Levofloxacin (Levaquin) 500 mg DAILY ORAL 08/03/16 11:00 08/10/16 10:59 08/04/16 09:16 Montelukast Sodium (Singulair) 10 mg DAILY ORAL 07/30/16 09:00 08/29/16 08:59 08/04/16 09:16 Ondansetron HCl (Zofran) 4 mg Q6H PRN IVP Nausea & Vomiting 07/29/16 20:30 08/28/16 20:29 Polyethylene Glycol (Miralax) 17 gm DAILYPRN PRN ORAL Constipation 07/29/16 20:30 08/28/16 20:29 Potassium Chloride (K-Dur) 40 meq TWICE A DAY ORAL 08/01/16 18:00 08/31/16 17:59 08/04/16 18:02 Temazepam (Restoril) 15 mg HSPRN PRN ORAL Insomnia 07/29/16 20:30 08/05/16 20:29 SOPHIA IBARRA August 04, 2016 23:38
[2016-08-05] VITALS: BP 146/89
[2016-08-05] MEDS: Norco 5mg/325mg tab ORAL PRN ×2 (03:06→09:41)
[2016-08-05] MEDS: DuoNeb 0.5-3(2.5)mg/3ml neb HHN PRN (03:20)
[2016-08-05 04:00] VITALS: BP 137/68
[2016-08-05] MEDS: NovoLOG Insulin Flexpen SUBQ SCH (06:07)
[2016-08-05 08:06] VITALS: BP 131/71
[2016-08-05] MEDS: Aspirin Baby 81mg ORAL SCH (09:42)
[2016-08-05 09:43] VITALS: BP 131/71
[2016-08-05] MEDS: Levofloxacin 500mg tab ORAL SCH (09:43)
[2016-08-05] MEDS: Diltiazem CD 180mg cap ORAL SCH (09:43)
[2016-08-05] MEDS: Montelukast 10mg tablet ORAL SCH (09:44)
[2016-08-05] MEDS: Heparin 5000 units/ml inj SUBQ SCH (09:44)
--- NOTE | 2016-08-05 11:23 | Internal Med Progress Note ---
Subjective Date of Service: August 05, 2016 Physician Name Sg Webster Attending Physician Yan Solitario MD Allergies: Coded Allergies: PENICILLINS (Verified Allergy, Intermediate, Hives, 07/09/16) ROS Limited/Unobtainable: No Constitutional: Reports: no symptoms HEENT: Reports: no symptoms Cardiovascular: Reports: no symptoms Respiratory: Reports: cough, shortness of breath Gastrointestinal/Abdominal: Reports: no symptoms Genitourinary: Reports: no symptoms Neurologic/Psychiatric: Reports: no symptoms Subjective 70 YO F with H/O asthma vs COPD admitted with cough and shortness of breath. Cover for Int Med-Dr Solitario. Discharge home today with home health; patient appeal of discharge with medicare denied. Objective Last Vital Signs Date Time Temp Pulse Resp B/P Pulse Ox O2 Delivery O2 Flow Rate FiO2 08/05/16 09:43 103 131/71 08/05/16 08:06 97.7 18 96 Room Air 08/05/16 06:59 2.0 08/05/16 03:22 28 Intake and Output 08/04/16 08/05/16 19:00 07:00 Intake Total 1800 ml Output Total 1200 ml Balance 600 ml Intake Oral 1800 ml Output Urine Total 1200 ml # Voids 5 # Bowel Movements 2 Objective General: obese; alert, cooperative, no distress, appears stated age Head: normocephalic, without obvious abnormality, atraumatic Eyes: conjunctivae/corneas clear. PERRL, EOM's intact Throat: lips, mucosa, and tongue normal. MMM Neck: supple, symmetrical, trachea midline, and no JVD Lungs: Few wheezed bilat; otherwise, clear to auscultation bilaterally Heart: regular rate and rhythm, S1, S2 normal, no murmur, click, rub or gallop Abdomen: soft, non-tender, non-distended, bowel sounds normal; no masses or organomegaly Extremities: extremities normal, atraumatic, no cyanosis; trace pedal edema Pulses: 2+ and symmetric Skin: skin color, texture, turgor normal; no rashes or lesions Neurologic: grossly normal, no focal deficits Assessment/Plan Problem List: (1) Pleuritic chest pain (2) Edema of both legs Assessment & Plan: Cont IV lasix. Incr lasix to 40 mg BID (3) Cough (4) Shortness of breath (5) COPD exacerbation Assessment & Plan: See pulmonary note; Continue duoneb. See ID note; cont levaquin and aztreonam. (6) Diabetes mellitus type II, uncontrolled Assessment & Plan: Cont novolog sliding scale. (7) Hypertension Assessment & Plan: Cont cardizem. (8) Morbid obesity (9) CHF (congestive heart failure) Assessment & Plan: Diastolic dysfunction. LVEF=55-60%. See cardiology note. (10) Diabetic peripheral neuropathy Assessment & Plan: Start neurontin Status: stable Assessment/Plan Discharge home today with home health; patient appeal of discharge with medicare denied. SG WEBSTER August 05, 2016 11:23
--- NOTE | 2016-08-05 18:41 | Pulmonology Progress Note ---
Assessment/Plan Problems: (1) ACS (acute coronary syndrome) (2) COPD exacerbation (3) CHF (congestive heart failure) (4) Hypertension (5) Diabetes mellitus type II, uncontrolled Assessment/Plan all noted no new events diuresing well, on lasix respiratory treatment sliding scale diabetic diet dc planning today Subjective ROS Limited/Unobtainable: No Allergies: Coded Allergies: PENICILLINS (Verified Allergy, Intermediate, Hives, 07/09/16) Objective Last 24 Hour Vital Signs Date Time Temp Pulse Resp B/P Pulse Ox O2 Delivery O2 Flow Rate FiO2 08/05/16 09:43 103 131/71 08/05/16 08:06 97.7 103 18 131/71 96 Room Air 08/05/16 06:59 98 18 Nasal Cannula 2.0 08/05/16 06:59 98 Nasal Cannula 2.0 08/05/16 06:59 Nasal Cannula 2.0 08/05/16 04:00 97.7 98 20 137/68 95 Room Air 08/05/16 03:22 88 18 99 Nasal Cannula 2.0 28 08/05/16 03:21 90 18 97 Nasal Cannula 2.0 28 08/05/16 00:00 97.9 91 20 146/89 97 Nasal Cannula 3.0 08/04/16 20:02 Nasal Cannula 2.0 28 08/04/16 20:02 98 Nasal Cannula 2.0 28 08/04/16 20:02 89 18 Nasal Cannula 2.0 28 08/04/16 19:57 98.2 85 20 143/77 97 Nasal Cannula 3.0 Intake and Output 08/04/16 08/05/16 19:00 07:00 Intake Total 1800 ml Output Total 1200 ml Balance 600 ml Intake Oral 1800 ml Output Urine Total 1200 ml # Voids 5 # Bowel Movements 2 Objective General Appearance: WD/WN HEENT: normocephalic, atraumatic Respiratory/Chest: chest wall non-tender, clear Cardiovascular: normal peripheral pulses, normal rate Abdomen: normal bowel sounds, no organomegaly Genitourinary: normal external genitalia Neurologic/Psychiatric: urogynecology physician II-XII grossly normal SOPHIA IBARRA August 05, 2016 18:41
--- NOTE | 2016-08-07 15:13 | Discharge Summary ---
Discharge Summary Hospital Course Date of Admission July 27, 2016 at 12:40 Date of Discharge August 05, 2016 at 11:15 Admitting Diagnosis ACS HPI Mariya Musa is a 70 year old female who was admitted on July 27, 2016 at 12:40 for Acute Coronary Syndrome Hospital Course [id number] Discharge Discharge Disposition Patient was discharged to Home (01) Discharge Diagnoses: Amanda Conrad NP August 07, 2016 15:13
== END 2016-08-05 11:15 | disposition home or self-care (01) | DRG 139 ==
LOC: EDBD 11:31 → EMR 12:33 → 2E 12:40 → EDBEDREQ 12:52 → 4E 07-29 20:04
DX: J18.9 Pneumonia, unspecified organism (principal); I50.33 Acute on chronic diastolic (congestive) heart failure; E87.2 Acidosis; E11.42 Type 2 diabetes mellitus with diabetic polyneuropathy; I45.2 Bifascicular block; E83.42 Hypomagnesemia; E11.65 Type 2 diabetes mellitus with hyperglycemia; E66.01 Morbid (severe) obesity due to excess calories; J44.1 Chronic obstructive pulmonary disease with (acute) exacerbation; I10 Essential (primary) hypertension; Z88.0 Allergy status to penicillin; M19.90 Unspecified osteoarthritis, unspecified site; Z79.4 Long term (current) use of insulin; E87.5 Hyperkalemia; E87.6 Hypokalemia
CPT/HCPCS: 36415; 71010; 80048; 80053; 80069; 82550; 82553; 82962; 83690; 83735; 83880; 84484; 85007; 85025; 87040; 87070; 87081; 87205; 90732; 93005; 93306; 93970; 94640; 94664; 94760; J1815; J2405; J7620; J8499

== ENCOUNTER 2017-02-09 18:47 | Inpatient (IN) | payer MEDICAID, MEDICARE ==
[~2017-02-09] VITALS: Ht 160 cm; Wt 115.7 kg
[~2017-02-09 18:47] MED LIST changes: +Furosemide 40mg tab ORAL SCH
[2017-02-09 19:05] VITALS: BP 136/73
[2017-02-09] MEDS ORDERED: Nitroglycerin 2% oint pkt TOPIC ONE (19:15)
[2017-02-09 19:48] LABS: BASOPHILS % (AUTO) 1.7 % (0.0-2.0); EOSINOPHILS % (AUTO) 5.9 % (0.0-3.0); LYMPHOCYTES % (AUTO) 32.1 % (20.0-45.0); MEAN CORPUSCULAR HEMOGLOBIN 27.2 PG (27.0-31.0); MEAN CORPUSCULAR HGB CONC 32.6 G/DL (32.0-36.0); MEAN CORPUSCULAR VOLUME 84 FL (80-99); MEAN PLATELET VOLUME 7.5 FL (6.5-10.1); MONOCYTES % (AUTO) 9.1 % (1.0-10.0); NEUTROPHILS % (AUTO) 51.2 % (45.0-75.0); PLATELET COUNT 348 K/UL (150-450); RED BLOOD COUNT 4.96 M/UL (4.20-5.40); RED CELL DISTRIBUTION WIDTH 15.1 % (11.6-14.8); WHITE BLOOD COUNT 8.5 K/UL (4.8-10.8)
[2017-02-09 20:00] VITALS: BP 146/82
[2017-02-09] MEDS ORDERED: Ipratropium 0.02% Inh Soln 2.5ml UD HHN ONE (20:00)
[2017-02-09] MEDS ORDERED: Albuterol ud Inhalation HHN ONE (20:00)
[2017-02-09] MEDS ORDERED: Morphine Sulfate 4mg/ml Inj IVP ONE (20:00)
[2017-02-09 20:18] LABS: APPEARANCE,URINE CLEAR; KETONES,URINE NEGATIVE (NEGATIVE); LEUKOCYTE ESTERASE ,URINE NEGATIVE (NEGATIVE); NITRITE,URINE NEGATIVE (NEGATIVE); PH,URINE 5 (4.5-8.0); PROTEIN,URINE NEGATIVE (NEGATIVE); UROBILINOGEN,URINE NORMAL MG/DL (0.0-1.0)
[2017-02-09 20:20] LABS: ANION GAP 9 mmol/L (5-15); CALCIUM 8.8 MG/DL (8.5-10.1); CARBON DIOXIDE 29 MMOL/L (21-32); CHLORIDE 98 MMOL/L (98-107); CREATININE 1.2 MG/DL (0.55-1.30); GLOMERULAR FILTRATION RATE 53.9 mL/min (>60); POTASSIUM 4.4 MMOL/L (3.5-5.1); SODIUM 136 MMOL/L (136-145)
[2017-02-09 20:25] LABS: PROTHROMBIN TIME 10.6 SEC (9.30-11.50)
[2017-02-09 20:36] LABS: ALANINE AMINOTRANSFERASE 19 U/L (12-78); ALBUMIN/GLOBULIN RATIO 0.8 (1.0-2.7); ASPARTATE AMINO TRANSFERASE 29 U/L (15-37); CKMB 1.3 NG/ML (0.0-3.6); TOTAL PROTEIN 7.5 G/DL (6.4-8.2)
[2017-02-09 21:10] VITALS: BP 138/80
[2017-02-09] MEDS ORDERED: IBUPROFEN600 MG ORAL (21:36)
[2017-02-09] MEDS ORDERED: CENTRUM SILVER1 EAC4 PO (21:36)
[2017-02-09] MEDS ORDERED: Promethazine/Codeine 5ml UD ORAL PRN (22:00)
[2017-02-09] MEDS ORDERED: LORazepam Inj 2mg/ml 1ml IV PRN (22:00)
[2017-02-09] MEDS ORDERED: Albuterol/Ipratropium 3ml neb HHN PRN (22:00)
[2017-02-09] MEDS ORDERED: Nitroglycerin Subl 0.4mg tab SL PRN (22:00)
[2017-02-09] MEDS ORDERED: Ketorolac 30mg Inj IV PRN (22:00)
--- NOTE | 2017-02-09 22:14 | Emergency Room Report ---
History of Present Illness General Chief Complaint: Chest Pain Source: Patient, EMS Present Illness HPI This patient presents with chest pain and tightness. She states that she has noted in her symptoms worsened right after eating a hamburger. She states that she has had some chest tightness for the past week. She has also had coughing. He states that she's had trouble breathing. She did have some improvement prior to arrival with nitroglycerin by EMS. She denies fever or chills. Denies nausea or vomiting. She has no other complaints. Allergies: Coded Allergies: PENICILLINS (Verified Allergy, Intermediate, Hives, 07/09/16) Patient History Past Medical History: see triage record, DM, HTN, CHF, COPD Social History: Denies: smoking, alcohol use, drug use Last Menstrual Period: N/A Reviewed Nursing Documentation: PMH: Agreed, PSxH: Agreed Nursing Documentation-PMH Past Medical History: No History, Except For Hx Cardiac Problems: Yes - CHF Hx Hypertension: Yes Hx Asthma: Yes Hx COPD: Yes Hx Diabetes: Yes Hx Cancer: No Hx Gastrointestinal Problems: No Hx Neurological Problems: No Review of Systems All Other Systems: negative except mentioned in HPI Physical Exam Vital Signs Date Time Temp Pulse Resp B/P (MAP) Pulse Ox O2 Delivery O2 Flow Rate FiO2 02/09/17 18:52 99.0 94 18 146/80 99 Room Air 02/09/17 19:05 96 Sp02 EP Interpretation: reviewed, normal General Appearance: no apparent distress, alert, GCS 15, non-toxic Head: normocephalic, atraumatic Eyes: bilateral eye normal inspection, bilateral eye PERRL ENT: hearing grossly normal, normal pharynx, no angioedema, normal voice Neck: full range of motion, supple/symm/no masses Respiratory: chest non-tender, no respiratory distress, no retraction, no accessory muscle use, decreased breath sounds, speaking full sentences, wheezing , expiration Cardiovascular #1: regular rate, rhythm, no edema Gastrointestinal: normal bowel sounds, non tender, soft, non-distended, no guarding, no rebound Rectal: deferred Musculoskeletal: back normal, gait/station normal, normal range of motion, non- tender Neurologic: alert, oriented x3, responsive, motor strength/tone normal, sensory intact, speech normal Psychiatric: judgement/insight normal, memory normal, mood/affect normal, no suicidal/homicidal ideation Skin: normal color, no rash, warm/dry, well hydrated Medical Decision Making Diagnostic Impression: Primary Impression: Chest pain Additional Impression: COPD exacerbation ER Course This patient presents with COPD exacerbation. She has diminished breath sounds and wheezing. She also has chest pain that likely is related to her COPD. She may also have a component of congestive heart failure. However, chest x-ray similar to previous. She was given albuterol and prednisone. She continued to have dyspnea and was admitted for COPD exacerbation. Laboratory Tests Test 02/09/17 19:10 02/09/17 19:30 White Blood Count 8.5 K/UL (4.8-10.8) Red Blood Count 4.96 M/UL (4.20-5.40) Hemoglobin 13.5 G/DL (12.0-16.0) Hematocrit 41.4 % (37.0-47.0) Mean Corpuscular Volume 84 FL (80-99) Mean Corpuscular Hemoglobin 27.2 PG (27.0-31.0) Mean Corpuscular Hemoglobin Concent 32.6 G/DL (32.0-36.0) Red Cell Distribution Width 15.1 % (11.6-14.8) H Platelet Count 348 K/UL (150-450) Mean Platelet Volume 7.5 FL (6.5-10.1) Neutrophils (%) (Auto) 51.2 % (45.0-75.0) Lymphocytes (%) (Auto) 32.1 % (20.0-45.0) Monocytes (%) (Auto) 9.1 % (1.0-10.0) Eosinophils (%) (Auto) 5.9 % (0.0-3.0) H Basophils (%) (Auto) 1.7 % (0.0-2.0) Prothrombin Time 10.6 SEC (9.30-11.50) Prothrombin Time INR 1.0 (0.9-1.1) PTT 25 SEC (23-33) Sodium Level 136 MMOL/L (136-145) Potassium Level 4.4 MMOL/L (3.5-5.1) Chloride Level 98 MMOL/L (98-107) Carbon Dioxide Level 29 MMOL/L (21-32) Anion Gap 9 mmol/L (5-15) Blood Urea Nitrogen 10 mg/dL (7-18) Creatinine 1.2 MG/DL (0.55-1.30) Estimate Glomerular Filtration Rate 53.9 mL/min (>60) Glucose Level 108 MG/DL (74-106) H Calcium Level 8.8 MG/DL (8.5-10.1) Total Bilirubin 0.3 MG/DL (0.2-1.0) Aspartate Amino Transferase (AST) 29 U/L (15-37) Alanine Aminotransferase (ALT) 19 U/L (12-78) Alkaline Phosphatase 106 U/L (46-116) Total Creatine Kinase 38 U/L (26-308) Creatine Kinase MB 1.3 NG/ML (0.0-3.6) Creatine Kinase MB Relative Index 3.4 Troponin I 0.000 ng/mL (0.000-0.056) Pro-B-Type Natriuretic Peptide 373 pg/mL (0-125) H Total Protein 7.5 G/DL (6.4-8.2) Albumin 3.3 G/DL (3.4-5.0) L Globulin 4.2 g/dL Albumin/Globulin Ratio 0.8 (1.0-2.7) L Urine Color Pale yellow Urine Appearance Clear Urine pH 5 (4.5-8.0) Urine Specific [place] 1.010 (1.005-1.035) Urine Protein Negative (NEGATIVE) Urine Glucose (UA) Negative (NEGATIVE) Urine Ketones Negative (NEGATIVE) Urine Occult Blood Negative (NEGATIVE) Urine Nitrite Negative (NEGATIVE) Urine Bilirubin Negative (NEGATIVE) Urine Urobilinogen Normal MG/DL (0.0-1.0) Urine Leukocyte Esterase Negative (NEGATIVE) EKG Diagnostic Results Rate: normal Rhythm: NSR ST Segments: no acute changes Other Impression LBBB Rhythm Strip Diag. Results EP Interpretation: yes Rate: 90's Rhythm: NSR, no PVC's, no ectopy Chest X-Ray Diagnostic Results Chest X-Ray Diagnostic Results : Chest X-Ray Ordered: Yes # of Views/Limited/Complete: 1 View Indication: Chest Pain EP Interpretation: Yes Interpretation: no consolidation, no effusion, no pneumothorax, other Impression: Other - Diffuse patchy opacities Last Vital Signs Date Time Temp Pulse Resp B/P (MAP) Pulse Ox O2 Delivery O2 Flow Rate FiO2 02/09/17 21:50 97 20 97 Room Air 02/09/17 21:17 97.2 02/09/17 21:10 138/80 02/09/17 19:05 96 Status: improved Disposition: ADMITTED INPATIENT Condition: Serious Referrals: [facility],REFERRING (PCP) RUSLAN MONCADA D.O. Feb 09, 2017 22:14
[2017-02-09 22:50] VITALS: BP 132/68
[2017-02-09] MEDS: Morphine Sulfate 2mg/ml Inj IVP PRN (23:51)
[2017-02-10] VITALS: BP 127/79
[2017-02-10] MEDS: Solu-MEDROL 125mg Inj IV SCH ×4 (00:05→18:01)
[2017-02-10 04:00] VITALS: BP 133/71
[2017-02-10] MEDS: Morphine Sulfate 2mg/ml Inj IVP PRN ×5 (05:29→22:21)
[2017-02-10] MEDS: NovoLOG Insulin Flexpen SUBQ SCH ×4 (06:32→21:06)
[2017-02-10 08:11] VITALS: BP 123/69
[2017-02-10] MEDS: Montelukast 10mg tablet ORAL SCH (08:17)
[2017-02-10] MEDS: Theophylline ER 100mg ORAL SCH ×2 (08:17→21:05)
[2017-02-10] MEDS: Eliquis 2.5mg tablet ORAL SCH ×2 (08:18→18:01)
--- NOTE | 2017-02-10 11:27 | Diagnostic Imaging Report ---
Indication: Chest pain Technique: One view of the chest Comparison: 08/03/2016 Findings: The heart is borderline enlarged. Atelectatic changes are seen at both lung bases. This is less extensive than on the prior study. No definite focal airspace consolidation or overt congestion. There is possibly slight blunting of the left costophrenic sulcus, small effusion not excludable. The bones are intact Impression: Possible small left pleural effusion Bibasilar atelectasis. Borderline cardiomegaly
[2017-02-10 11:39] VITALS: BP 131/67
--- NOTE | 2017-02-10 13:08 | History and Physical ---
History of Present Illness General Date patient seen: Feb 10, 2017 Reason for Hospitalization: Chest Pain Present Illness HPI 71 year old female with morbid obesity, afib, on Apixiban presented to ER with CC of chest pain and tightness. Her symptoms worsened right after eating a hamburger. She states that she has had some chest tightness for the past week. She has also had coughing. He states that she's had trouble breathing. She did have some improvement prior to arrival with nitroglycerin by EMS. She is admitted to telemetry to telemetry for further work up. Allergies: Coded Allergies: PENICILLINS (Verified Allergy, Intermediate, Hives, 07/09/16) Medication History Scheduled Apixaban (Eliquis), 2.5 MG PO BID, (Reported) Aspirin* (Aspirin*), 81 MG ORAL DAILY, (Reported) Budesonide/Formoterol Fumarate (Symbicort 160-4.5 Mcg Inhaler), 2 PUFF IH BID, ( Reported) Diltiazem HCl (Diltiazem ER), 180 MG PO DAILY, (Reported) Docusate Sodium (Dok), 100 MG PO BID, (Reported) Furosemide* (Lasix*), 40 MG ORAL NEEDED, (Reported) Ibuprofen* (Motrin*), 200 MG ORAL FOUR TIMES A DAY, (Reported) Insulin Detemir (Levemir Flexpen), 15 SUBQ QHS, (Reported) Montelukast Sodium* (Montelukast Sodium*), 10 MG ORAL DAILY, (Reported) Omeprazole (Omeprazole), 20 MG ORAL DAILY, (Reported) Valsartan (Diovan), 40 MG ORAL DAILY, (Reported) Scheduled PRN Albuterol Sulfate (Ventolin Hfa), 2 PUFFS INH EVERY 6 HOURS PRN for Shortness of Breath, (Reported) Miscellaneous Medications Mu-Vits-Min Th/Lycopene/Lutein (Centrum Silver Tablet), 1 EACH PO, (Reported) Patient History Healthcare decision maker Resuscitation status Full Code Advanced Directive on File Past Medical/Surgical History Past Medical/Surgical History: (1) Diabetic peripheral neuropathy (2) COPD (chronic obstructive pulmonary disease) (3) Morbid obesity (4) Hypertension Review of Systems Constitutional: Reports: malaise Respiratory: Reports: cough Cardiovascular: Reports: chest pain Physical Exam General Appearance: WD/WN, morbidly obese Lines, tubes and drains: peripheral HEENT: normocephalic, atraumatic Neck: non-tender, normal alignment, supple Respiratory/Chest: chest wall non-tender, lungs clear, normal breath sounds Cardiovascular/Chest: normal peripheral pulses, normal rate Abdomen: normal bowel sounds, non tender Genitourinary/Rectal: normal genital exam, normal rectal exam Extremities: normal range of motion, non-tender Last 24 Hour Vital Signs Date Time Temp Pulse Resp B/P (MAP) Pulse Ox O2 Delivery O2 Flow Rate FiO2 02/10/17 11:39 96.4 87 18 131/67 95 02/10/17 10:17 96.4 02/10/17 08:25 85 20 Nasal Cannula 2.0 21 02/10/17 08:25 85 16 Nasal Cannula 2.0 02/10/17 08:11 97.7 84 18 123/69 91 02/10/17 08:00 88 02/10/17 04:00 91 02/10/17 04:00 97.3 87 20 133/71 95 Nasal Cannula 96 02/10/17 00:00 94 02/10/17 00:00 97.9 90 20 127/79 95 Nasal Cannula 02/09/17 22:50 97.9 90 20 132/68 100 Nasal Cannula 02/09/17 22:04 97.2 88 20 138/80 97 Room Air 96 02/09/17 21:50 97 20 97 Room Air 02/09/17 21:17 97.2 02/09/17 21:10 97.9 88 14 138/80 96 Room Air 02/09/17 20:56 94 14 Room Air 02/09/17 20:55 95 14 94 Room Air 02/09/17 20:00 98.1 90 22 146/82 96 Room Air 02/09/17 19:41 146/80 02/09/17 19:05 97.2 96 22 136/73 96 Room Air 02/09/17 19:05 96 22 Room Air 96 02/09/17 18:52 99.0 94 18 146/80 99 Room Air Intake and Output 02/10/17 02/11/17 19:00 07:00 Intake Total 240 ml Balance 240 ml Intake Oral 240 ml # Voids 5 Laboratory Tests Test 02/09/17 19:10 02/09/17 19:30 White Blood Count 8.5 K/UL (4.8-10.8) Red Blood Count 4.96 M/UL (4.20-5.40) Hemoglobin 13.5 G/DL (12.0-16.0) Hematocrit 41.4 % (37.0-47.0) Mean Corpuscular Volume 84 FL (80-99) Mean Corpuscular Hemoglobin 27.2 PG (27.0-31.0) Mean Corpuscular Hemoglobin Concent 32.6 G/DL (32.0-36.0) Red Cell Distribution Width 15.1 % (11.6-14.8) H Platelet Count 348 K/UL (150-450) Mean Platelet Volume 7.5 FL (6.5-10.1) Neutrophils (%) (Auto) 51.2 % (45.0-75.0) Lymphocytes (%) (Auto) 32.1 % (20.0-45.0) Monocytes (%) (Auto) 9.1 % (1.0-10.0) Eosinophils (%) (Auto) 5.9 % (0.0-3.0) H Basophils (%) (Auto) 1.7 % (0.0-2.0) Prothrombin Time 10.6 SEC (9.30-11.50) Prothromb Time International Ratio 1.0 (0.9-1.1) Activated Partial Thromboplast Time 25 SEC (23-33) Sodium Level 136 MMOL/L (136-145) Potassium Level 4.4 MMOL/L (3.5-5.1) Chloride Level 98 MMOL/L (98-107) Carbon Dioxide Level 29 MMOL/L (21-32) Anion Gap 9 mmol/L (5-15) Blood Urea Nitrogen 10 mg/dL (7-18) Creatinine 1.2 MG/DL (0.55-1.30) Estimat Glomerular Filtration Rate 53.9 mL/min (>60) Glucose Level 108 MG/DL (74-106) H Calcium Level 8.8 MG/DL (8.5-10.1) Total Bilirubin 0.3 MG/DL (0.2-1.0) Aspartate Amino Transf (AST/SGOT) 29 U/L (15-37) Alanine Aminotransferase (ALT/SGPT) 19 U/L (12-78) Alkaline Phosphatase 106 U/L (46-116) Total Creatine Kinase 38 U/L (26-308) Creatine Kinase MB 1.3 NG/ML (0.0-3.6) Creatine Kinase MB Relative Index 3.4 Troponin I 0.000 ng/mL (0.000-0.056) Pro-B-Type Natriuretic Peptide 373 pg/mL (0-125) H Total Protein 7.5 G/DL (6.4-8.2) Albumin 3.3 G/DL (3.4-5.0) L Globulin 4.2 g/dL Albumin/Globulin Ratio 0.8 (1.0-2.7) L Urine Color Pale yellow Urine Appearance Clear Urine pH 5 (4.5-8.0) Urine Specific [place] 1.010 (1.005-1.035) Urine Protein Negative (NEGATIVE) Urine Glucose (UA) Negative (NEGATIVE) Urine Ketones Negative (NEGATIVE) Urine Occult Blood Negative (NEGATIVE) Urine Nitrite Negative (NEGATIVE) Urine Bilirubin Negative (NEGATIVE) Urine Urobilinogen Normal MG/DL (0.0-1.0) Urine Leukocyte Esterase Negative (NEGATIVE) Height (Feet): 5 Height (Inches): 3.00 Weight (Pounds): 255 Medications Current Medications Medications (Trade) Dose Ordered Sig/Anthony Route PRN Reason Start Time Stop Time Status Last Admin Dose Admin Albuterol/ Ipratropium (Albuterol/ Ipratropium) 3 ml Q4H PRN HHN dyspnea 02/09/17 22:00 02/14/17 21:59 Apixaban (Eliquis) 2.5 mg BID ORAL 02/10/17 09:00 03/12/17 08:59 02/10/17 08:18 Dextrose (Dextrose 50%) STAT PRN IV Hypoglycemia 02/09/17 22:00 03/11/17 21:59 Furosemide (Lasix) 40 mg NEEDED ORAL 02/09/17 22:00 03/11/17 21:59 UNV Insulin Aspart (NovoLOG) BEFORE MEALS AND HS SUBQ 02/10/17 06:30 03/12/17 06:29 02/10/17 11:30 Insulin Detemir (Levemir) 10 units QHS SUBQ 02/10/17 21:00 03/12/17 20:59 Ketorolac Tromethamine (Toradol 30mg) 30 mg EVERY 8 HOURS PRN IV moderate pain 4-6 02/09/17 22:00 02/14/17 21:59 Lorazepam (Ativan 2mg/ml 1ml) 0.5 mg Q4H PRN IV For Anxiety 02/09/17 22:00 02/16/17 21:59 Methylprednisolone Sodium Succinate (Solu-MEDROL) 60 mg EVERY 6 HOURS IV 02/10/17 00:00 03/12/17 00:00 02/10/17 13:00 Montelukast Sodium (Singulair) 10 mg DAILY ORAL 02/10/17 09:00 03/12/17 08:59 02/10/17 08:17 Morphine Sulfate (Morphine Sulfate) 2 mg Q4H PRN IVP severe pain 7-10 02/09/17 22:00 02/16/17 21:59 02/10/17 09:47 Nitroglycerin (Ntg) 0.4 mg Q5M X 3 DOSES PRN SL Prn Chest Pain 02/09/17 22:00 03/11/17 21:59 Ondansetron HCl (Zofran) 4 mg Q6H PRN IVP Nausea & Vomiting 02/09/17 22:00 03/11/17 21:59 Promethazine HCl/ Codeine (Phenergan with Codeine) 5 ml Q6H PRN ORAL cough 02/09/17 22:00 03/11/17 21:59 Temazepam (Restoril) 15 mg HSPRN PRN ORAL Insomnia 02/09/17 22:00 02/16/17 21:59 Theophylline (Tani-Dur) 100 mg EVERY 12 HOURS ORAL 02/10/17 09:00 03/12/17 08:59 02/10/17 08:17 Assessment/Plan Problem List: (1) COPD exacerbation ICD Codes: J44.1 - Chronic obstructive pulmonary disease with (acute) exacerbation SNOMED: 095839291, 404865600 (2) ACS (acute coronary syndrome) ICD Codes: I24.9 - Acute ischemic heart disease, unspecified SNOMED: 600580177 (3) Purulent bronchitis ICD Codes: J41.1 - Mucopurulent chronic bronchitis SNOMED: 80357959 (4) Atrial flutter ICD Codes: I48.92 - Unspecified atrial flutter SNOMED: 3342891 (5) Morbid obesity ICD Codes: E66.01 - Morbid (severe) obesity due to excess calories SNOMED: 365275584, 06181655989294 (6) Hypertension ICD Codes: I10 - Essential (primary) hypertension SNOMED: 59590320 Assessment/Plan respiratory treatment IV steroids IV abx cardiology to see heart rate controlled. SOPHIA IBARRA Feb 10, 2017 13:08
[2017-02-10 15:19] VITALS: BP 131/64
--- NOTE | 2017-02-10 15:44 | Cardiology Report ---
APPROVED REPORT EXAM: Two-dimensional and M-mode echocardiogram with Doppler and color Doppler. INDICATION Congestive Heart Failure M-Mode DIMENSIONS IVSd0.9 (0.7-1.1cm)Left Atrium (MM)3.0 (1.6-4.0cm) LVDd5.1 (3.5-5.6cm)Aortic Root2.5 (2.0-3.7cm) PWd1.2 (0.7-1.1cm)Aortic Cusp Exc.2.0 (1.5-2.0cm) IVSs1.2 cm LVDs2.7 (2.5-4.0cm) PWs1.3 cm Technically limited and difficult study due to poor acoustical windows. Normal left ventricular chamber size, systolic function and wall motion. Left ventricular ejection fraction estimated to be 60-65%. No evidence of left ventricular hypertrophy. No evidence of pericardial or pleural effusion. Right cardiac chamber sizes are within normal limits. Mild left atrial enlargement by 2D. Focal aortic valve sclerosis with adequate cusp excursion. Normal mitral valve leaflets with normal excursion. Normal mitral annulus and aortic root. Pulmonic valve not well visualized. Normal tricuspid valve structure. IVC is not obtainable. A color flow and spectral Doppler study was performed and revealed: No aortic regurgitation. No mitral regurgitation. Mitral diastolic velocities suggest reduced left ventricular relaxation c/w diastolic dysfunction grade 1. No tricuspid regurgitation.
--- NOTE | 2017-02-10 16:48 | Cardiology Report ---
APPROVED REPORT EKG Measurement Heart [id number] Normal sinus rhythm Left axis deviation Right bundle branch block Inferior infarct, age undetermined Anterolateral infarct, age undetermined Abnormal ECG
--- NOTE | 2017-02-10 18:39 | Cardiology Progress Note ---
Assessment/Plan Assessment/Plan [id number] chest pain reproducible onpalpation copd exacerbation bronchospasm diastolic dysfunction filaure obesity trop neg despite 6 days of constant pain keep on diurtic treat underlying copd exacerbation once her copd is resolved may consider excercise stress test possibley as outpt depending on future blood test results Objective Last 24 Hour Vital Signs Date Time Temp Pulse Resp B/P (MAP) Pulse Ox O2 Delivery O2 Flow Rate FiO2 02/10/17 18:31 97.2 02/10/17 16:00 93 02/10/17 15:19 97.2 91 18 131/64 100 02/10/17 12:00 95 Nasal Cannula 1.0 02/10/17 12:00 86 02/10/17 11:39 96.4 87 18 131/67 95 02/10/17 08:25 85 20 Nasal Cannula 2.0 21 02/10/17 08:25 85 16 Nasal Cannula 2.0 02/10/17 08:11 97.7 84 18 123/69 91 02/10/17 08:00 91 Nasal Cannula 2.0 02/10/17 08:00 88 02/10/17 04:00 91 02/10/17 04:00 97.3 87 20 133/71 95 Nasal Cannula 96 02/10/17 00:00 94 02/10/17 00:00 97.9 90 20 127/79 95 Nasal Cannula 02/09/17 22:50 97.9 90 20 132/68 100 Nasal Cannula 02/09/17 22:04 97.2 88 20 138/80 97 Room Air 96 02/09/17 21:50 97 20 97 Room Air 02/09/17 21:17 97.2 02/09/17 21:10 97.9 88 14 138/80 96 Room Air 02/09/17 20:56 94 14 Room Air 02/09/17 20:55 95 14 94 Room Air 02/09/17 20:00 98.1 90 22 146/82 96 Room Air 02/09/17 19:41 146/80 02/09/17 19:05 97.2 96 22 136/73 96 Room Air 02/09/17 19:05 96 22 Room Air 96 02/09/17 18:52 99.0 94 18 146/80 99 Room Air Intake and Output 02/10/17 02/11/17 19:00 07:00 Intake Total 720 ml Balance 720 ml Intake Oral 720 ml # Voids 6 Laboratory Tests Test 02/09/17 19:10 02/09/17 19:30 White Blood Count 8.5 K/UL (4.8-10.8) Red Blood Count 4.96 M/UL (4.20-5.40) Hemoglobin 13.5 G/DL (12.0-16.0) Hematocrit 41.4 % (37.0-47.0) Mean Corpuscular Volume 84 FL (80-99) Mean Corpuscular Hemoglobin 27.2 PG (27.0-31.0) Mean Corpuscular Hemoglobin Concent 32.6 G/DL (32.0-36.0) Red Cell Distribution Width 15.1 % (11.6-14.8) H Platelet Count 348 K/UL (150-450) Mean Platelet Volume 7.5 FL (6.5-10.1) Neutrophils (%) (Auto) 51.2 % (45.0-75.0) Lymphocytes (%) (Auto) 32.1 % (20.0-45.0) Monocytes (%) (Auto) 9.1 % (1.0-10.0) Eosinophils (%) (Auto) 5.9 % (0.0-3.0) H Basophils (%) (Auto) 1.7 % (0.0-2.0) Prothrombin Time 10.6 SEC (9.30-11.50) Prothromb Time International Ratio 1.0 (0.9-1.1) Activated Partial Thromboplast Time 25 SEC (23-33) Sodium Level 136 MMOL/L (136-145) Potassium Level 4.4 MMOL/L (3.5-5.1) Chloride Level 98 MMOL/L (98-107) Carbon Dioxide Level 29 MMOL/L (21-32) Anion Gap 9 mmol/L (5-15) Blood Urea Nitrogen 10 mg/dL (7-18) Creatinine 1.2 MG/DL (0.55-1.30) Estimat Glomerular Filtration Rate 53.9 mL/min (>60) Glucose Level 108 MG/DL (74-106) H Calcium Level 8.8 MG/DL (8.5-10.1) Total Bilirubin 0.3 MG/DL (0.2-1.0) Aspartate Amino Transf (AST/SGOT) 29 U/L (15-37) Alanine Aminotransferase (ALT/SGPT) 19 U/L (12-78) Alkaline Phosphatase 106 U/L (46-116) Total Creatine Kinase 38 U/L (26-308) Creatine Kinase MB 1.3 NG/ML (0.0-3.6) Creatine Kinase MB Relative Index 3.4 Troponin I 0.000 ng/mL (0.000-0.056) Pro-B-Type Natriuretic Peptide 373 pg/mL (0-125) H Total Protein 7.5 G/DL (6.4-8.2) Albumin 3.3 G/DL (3.4-5.0) L Globulin 4.2 g/dL Albumin/Globulin Ratio 0.8 (1.0-2.7) L Urine Color Pale yellow Urine Appearance Clear Urine pH 5 (4.5-8.0) Urine Specific [place] 1.010 (1.005-1.035) Urine Protein Negative (NEGATIVE) Urine Glucose (UA) Negative (NEGATIVE) Urine Ketones Negative (NEGATIVE) Urine Occult Blood Negative (NEGATIVE) Urine Nitrite Negative (NEGATIVE) Urine Bilirubin Negative (NEGATIVE) Urine Urobilinogen Normal MG/DL (0.0-1.0) Urine Leukocyte Esterase Negative (NEGATIVE) LAUREN FUCHS Feb 10, 2017 18:39
[2017-02-10 20:05] VITALS: BP 135/88
[2017-02-10] MEDS ORDERED: Levemir Flexpen SUBQ SCH (21:00)
--- NOTE | 2017-02-10 23:30 | Consultation ---
DATE OF CONSULTATION: 02/10/2017 CARDIOLOGY CONSULTATION CONSULTING PHYSICIAN: Raymond Mccord M.D. REFERRING PHYSICIAN: Sharan Mariscal M.D. REASON FOR REFERRAL: Chest pain. HISTORY OF PRESENT ILLNESS: This is an elderly female. She has actually moved in [place] and then here. She has had problems with COPD and possible congestive heart failure. According to herself, she was hospitalized previously in [place] because of some palpitation and shortness of breath or chest pains, apparently was evaluated, was told, and given some medications to slow down her heart rate. In either case, apparently over the past 6 days, she has had constant pain, sharp sensation in the center of the chest. It does not seem to get any worse with walking. She does indicate that in some positions, she has been feeling better with changes in position intermittently because of various reasons. She has COPD and she has had shortness of breath related to that. There was no episode of PND. She has some orthopnea of approximately two pillows. She has had no recent palpitation although she has had them before as mentioned. She has dyspnea on exertion. She does not have any dizziness or lightheadedness. PAST MEDICAL HISTORY: Positive for diabetes and high blood pressure. No history of heart attack. No cancer. No stroke. No hepatitis or tuberculosis. She does have COPD. She does have "congestive heart failure," unknown details. No kidney problem, liver problem, thyroid problem, anemia, arthritis, blood clots, HIV or AIDS, or any other medical problems. The patient has had history of colon source of bleeding that she has had resection of her colon. She also has some spine problems with resultant numbness and tingling sensation in her right arm. ALLERGIES: She is allergic to penicillin. SOCIAL HISTORY: She does not smoke, does not drink, does not use drugs, although she used some alcohol on prior occasions but not hard liquor she indicates. REVIEW OF SYSTEMS: GASTROINTESTINAL: There is no nausea or vomiting. No diarrhea. She has had part of her colon taken out years ago. GENITOURINARY: She denies. PULMONARY: coughing, wheezing. CONSTITUTIONAL: Negative. NEUROLOGIC: She has numbness and tingling sensation in her right hand. PHYSICAL EXAMINATION: GENERAL: Shows to be obese female, in no respiratory distress. NECK: Supple. No jugular venous distention. LUNGS: Expiratory wheezes, also upper airway sounds. CARDIAC: Regular rate and rhythm. No heaves, thrills, or gallops noted. CHEST: The patient's chest wall is tender to palpation and seems to reproduce the pain that she has been experiencing for the past 6 days according to herself. ABDOMEN: Obese. Positive bowel sounds. Nontender. EXTREMITIES: Trace edema of lower extremities bilaterally. NEUROLOGICAL: She is awake, alert, responsive, and in no apparent respiratory distress. It should be noted that the patient has very tangential thought process. LABORATORY DATA: Her white count is 8.5, hemoglobin 13.5, and platelet count 248,000. Sodium 136, potassium 4.4, chloride 98, bicarbonate 29, BUN 10, creatinine 1.2, and glucose of 108. Troponin is normal. ProBNP is only 373. Liver function tests are otherwise unremarkable. Coagulation studies 1.0. Urinalysis is fairly unremarkable. IMAGING STUDIES: The chest x-ray shows possible small pleural effusion on the left side. An echocardiogram shows technically difficult study, normal wall motion, no significant valvular dysfunction, mild diastolic relaxation abnormalities. Her electrocardiogram shows incomplete right bundle-branch conduction defect, delayed R-wave progression may be secondary to obesity. ASSESSMENT: 1. Chronic obstructive pulmonary disease with possible exacerbation. 2. History of chest pain. 3. Obesity. 4. Abnormal electrocardiogram. PLAN: Dr. Mariscal, this patient was seen in cardiac consultation. The patient's electrocardiogram does not appear to be significant changed since previous from back in 07/2016. She has likely chest wall pain as the palpation of the sternum seems to exacerbate her pain. She has got 6 days of ongoing chest pain constantly. Her cardiac enzymes were all negative making the ischemic pain less than likely in this patient. Her echocardiogram additionally shows normal wall motion except for mild diastolic relaxation abnormalities. She has been treated for diastolic heart failure previously and she should be continued on that treatment for the time being. Because of her COPD exacerbation, I am hesitant to recommend any cardiac testing at this time although once she is better, may consider at least an ambulatory stress test if she is able to tolerate it and able to perform; however, my suspicion for this particular pain that she is now describing and experiencing and is reproducible on palpation, is very low for ischemic pain. Raymond Mccord M.D. DR: LALIT JOB#: [id number] CC:
[2017-02-11] VITALS (7 sets, daily range): BP systolic 119–162; BP diastolic 69–96
[2017-02-11] MEDS: Solu-MEDROL 125mg Inj IV SCH ×3 (00:34→22:58)
[2017-02-11] MEDS: Morphine Sulfate 2mg/ml Inj IVP PRN ×6 (02:23→23:00)
[2017-02-11] MEDS: NovoLOG Insulin Flexpen SUBQ SCH ×3 (06:37→16:30)
[2017-02-11] MEDS: Theophylline ER 100mg ORAL SCH (10:40)
[2017-02-11] MEDS: Montelukast 10mg tablet ORAL SCH (10:40)
[2017-02-11] MEDS: Eliquis 2.5mg tablet ORAL SCH ×2 (10:40→17:08)
--- NOTE | 2017-02-11 11:15 | Pulmonology Progress Note ---
Assessment/Plan Problems: (1) COPD exacerbation (2) ACS (acute coronary syndrome) (3) Purulent bronchitis (4) Atrial flutter (5) Morbid obesity (6) Hypertension Assessment/Plan improving respiratory treatment cardio evaluation appreciated taper solumedrol slowly continue abx med/surg if ok with cardio Subjective ROS Limited/Unobtainable: No Interval Events: less wheezing Allergies: Coded Allergies: PENICILLINS (Verified Allergy, Intermediate, Hives, 07/09/16) Objective Last 24 Hour Vital Signs Date Time Temp Pulse Resp B/P (MAP) Pulse Ox O2 Delivery O2 Flow Rate FiO2 02/11/17 08:15 96.8 93 18 162/93 100 02/11/17 04:08 97.3 88 21 119/69 93 Room Air 02/11/17 04:00 88 02/11/17 00:50 97.0 92 20 145/76 92 Room Air 02/11/17 00:00 91 02/10/17 20:05 97.3 95 23 135/88 93 Room Air 02/10/17 20:00 96 02/10/17 18:31 97.2 02/10/17 16:00 93 02/10/17 15:19 97.2 91 18 131/64 100 02/10/17 12:00 95 Nasal Cannula 1.0 02/10/17 12:00 86 02/10/17 11:39 96.4 87 18 131/67 95 Intake and Output 02/11/17 02/12/17 19:00 07:00 Intake Total 250 ml Balance 250 ml Intake Oral 250 ml # Voids 1 HEENT: normocephalic Respiratory/Chest: chest wall non-tender, decreased breath sounds, crackles/ rales Breasts: no masses Cardiovascular: normal peripheral pulses Abdomen: normal bowel sounds, no organomegaly Genitourinary: normal external genitalia Extremities: no cyanosis Skin: no lesions 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 Lymphatic: no neck adenopathy Microbiology Date/Time Source Procedure Growth Status 02/09/17 19:10 Arm Left Blood Culture - Preliminary NO GROWTH AFTER 24 HOURS Resulted 02/09/17 19:00 Arm Left Blood Culture - Preliminary NO GROWTH AFTER 24 HOURS Resulted Current Medications Medications (Trade) Dose Ordered Sig/Anthony Route PRN Reason Start Time Stop Time Status Last Admin Dose Admin Albuterol/ Ipratropium (Albuterol/ Ipratropium) 3 ml Q4H PRN HHN dyspnea 02/09/17 22:00 02/14/17 21:59 Apixaban (Eliquis) 2.5 mg BID ORAL 02/10/17 09:00 03/12/17 08:59 02/11/17 10:40 Dextrose (Dextrose 50%) STAT PRN IV Hypoglycemia 02/09/17 22:00 03/11/17 21:59 Furosemide (Lasix) 40 mg NEEDED ORAL 02/09/17 22:00 03/11/17 21:59 UNV Insulin Aspart (NovoLOG) BEFORE MEALS AND HS SUBQ 02/10/17 06:30 03/12/17 06:29 02/11/17 06:37 Insulin Detemir (Levemir) 10 units QHS SUBQ 02/10/17 21:00 03/12/17 20:59 02/10/17 21:08 Ketorolac Tromethamine (Toradol 30mg) 30 mg EVERY 8 HOURS PRN IV moderate pain 4-6 02/09/17 22:00 02/14/17 21:59 Lorazepam (Ativan 2mg/ml 1ml) 0.5 mg Q4H PRN IV For Anxiety 02/09/17 22:00 02/16/17 21:59 Methylprednisolone Sodium Succinate (Solu-MEDROL) 60 mg EVERY 6 HOURS IV 02/10/17 00:00 03/12/17 00:00 02/11/17 06:34 Montelukast Sodium (Singulair) 10 mg DAILY ORAL 02/10/17 09:00 03/12/17 08:59 02/11/17 10:40 Morphine Sulfate (Morphine Sulfate) 2 mg Q4H PRN IVP severe pain 7-10 02/09/17 22:00 02/16/17 21:59 02/11/17 10:53 Nitroglycerin (Ntg) 0.4 mg Q5M X 3 DOSES PRN SL Prn Chest Pain 02/09/17 22:00 03/11/17 21:59 Ondansetron HCl (Zofran) 4 mg Q6H PRN IVP Nausea & Vomiting 02/09/17 22:00 03/11/17 21:59 Promethazine HCl/ Codeine (Phenergan with Codeine) 5 ml Q6H PRN ORAL cough 02/09/17 22:00 03/11/17 21:59 Temazepam (Restoril) 15 mg HSPRN PRN ORAL Insomnia 02/09/17 22:00 02/16/17 21:59 Theophylline (Tain-Dur) 100 mg EVERY 12 HOURS ORAL 02/10/17 09:00 03/12/17 08:59 02/11/17 10:40 SOPHIA IBARRA Feb 11, 2017 11:15
[2017-02-11] MEDS ORDERED: Furosemide 40mg tab ORAL SCH (12:00)
[2017-02-11] MEDS ORDERED: Ketorolac 30mg Inj IV PRN (13:00)
[2017-02-11] MEDS ORDERED: Solu-MEDROL 125mg Inj IV SCH (14:00)
--- NOTE | 2017-02-11 19:47 | Cardiology Progress Note ---
Assessment/Plan Assessment/Plan chest pain reproducible onpalpation copd exacerbation bronchospasm diastolic dysfunction filaure obesity trop neg despite 6 days of constant pain 2nd not doen will reorder ok to dc home if trop neg keep on diurtic treat underlying copd exacerbation once her copd is resolved may consider excercise stress test possibley as outpt nsaid for pain on the chest wall Subjective Cardiovascular: Reports: chest pain, Denies: lightheadedness Respiratory: Reports: cough, shortness of breath Gastrointestinal/Abdominal: Denies: abdominal pain, black stools Genitourinary: Denies: burning Objective Last 24 Hour Vital Signs Date Time Temp Pulse Resp B/P (MAP) Pulse Ox O2 Delivery O2 Flow Rate FiO2 02/11/17 16:23 97.9 94 18 127/75 96 02/11/17 16:00 96 02/11/17 15:47 92 20 99 Nasal Cannula 2.0 28 02/11/17 15:38 90 20 98 Nasal Cannula 2.0 28 02/11/17 15:38 36 02/11/17 15:30 97.1 02/11/17 12:00 95 02/11/17 11:18 97.1 97 19 143/76 96 02/11/17 08:15 96.8 93 18 162/93 100 02/11/17 08:00 92 02/11/17 04:08 97.3 88 21 119/69 93 Room Air 02/11/17 04:00 88 02/11/17 00:50 97.0 92 20 145/76 92 Room Air 02/11/17 00:00 91 02/10/17 20:05 97.3 95 23 135/88 93 Room Air 02/10/17 20:00 96 General Appearance: no apparent distress, alert Neck: supple Cardiovascular: normal rate, regular rhythm, other - chest wall tenderness to palp Respiratory/Chest: expiratory wheezing - min Abdomen: normal bowel sounds, non tender, soft Extremities: no swelling Intake and Output 02/11/17 02/12/17 19:00 07:00 Intake Total 500 ml Balance 500 ml Intake Oral 500 ml # Voids 7 # Bowel Movements 2 Microbiology Date/Time Source Procedure Growth Status 02/09/17 19:10 Arm Left Blood Culture - Preliminary NO GROWTH AFTER 24 HOURS Resulted 02/09/17 19:00 Arm Left Blood Culture - Preliminary NO GROWTH AFTER 24 HOURS Resulted LAUREN FUCHS Feb 11, 2017 19:47
[2017-02-11] MEDS ORDERED: Nitroglycerin Subl 0.4mg tab SL PRN (22:00)
[2017-02-12] VITALS (7 sets, daily range): BP systolic 115–152; BP diastolic 61–99
[2017-02-12] MEDS ORDERED: LORazepam Inj 2mg/ml 1ml IV PRN (02:00)
[2017-02-12] MEDS ORDERED: Albuterol/Ipratropium 3ml neb HHN PRN (02:00)
[2017-02-12] MEDS: Morphine Sulfate 2mg/ml Inj IVP PRN ×6 (03:08→23:41)
[2017-02-12] MEDS ORDERED: Promethazine/Codeine 5ml UD ORAL PRN (04:00)
[2017-02-12 05:43] LABS: MEAN CORPUSCULAR HGB CONC 34.4 G/DL (32.0-36.0); MEAN CORPUSCULAR VOLUME 84 FL (80-99); MEAN PLATELET VOLUME 7.8 FL (6.5-10.1); PLATELET COUNT 349 K/UL (150-450); RED CELL DISTRIBUTION WIDTH 15.2 % (11.6-14.8); WHITE BLOOD COUNT 10.9 K/UL (4.8-10.8)
[2017-02-12 06:10] LABS: ALANINE AMINOTRANSFERASE 23 U/L (12-78); ALBUMIN/GLOBULIN RATIO 0.9 (1.0-2.7); ANION GAP 8 mmol/L (5-15); ASPARTATE AMINO TRANSFERASE 19 U/L (15-37); CALCIUM 9.4 MG/DL (8.5-10.1); CARBON DIOXIDE 29 MMOL/L (21-32); CHLORIDE 100 MMOL/L (98-107); CREATININE 1.6 MG/DL (0.55-1.30); GLOMERULAR FILTRATION RATE 38.8 mL/min (>60); MAGNESIUM 1.9 MG/DL (1.8-2.4); PHOSPHORUS 3.3 MG/DL (2.5-4.9); POTASSIUM 4.5 MMOL/L (3.5-5.1); SODIUM 137 MMOL/L (136-145); TOTAL PROTEIN 7.2 G/DL (6.4-8.2)
[2017-02-12] MEDS: Solu-MEDROL 125mg Inj IV SCH (06:43)
[2017-02-12] MEDS: NovoLOG Insulin Flexpen SUBQ SCH ×4 (07:19→21:07)
[2017-02-12 07:20] LABS: ERYTHROCYTE SEDIMENTATION RATE 12 MM/HR (0-30)
--- NOTE | 2017-02-12 07:32 | Pulmonology Progress Note ---
Assessment/Plan Assessment/Plan ASSESSMENT Acute COPD exacerbation Acute purulent bronchitis A flutter morbid obesity HTN CP reproducible on palpation, Likely costochondritis Diastolic dysfunction DM PLAN OF CARE MS floor O2 HHN prn steroids and taper Empiric abx sputum cx if able CXR + CM, bibasilar atelectasis, small left pleural effusion, a/tussive prn continue with theophylline cardio follows ECHO with pEF 60-65% Serial troponin negative continue diuretic due to diastolic dysfunction monitor renal parameters, lytes, I/O on a/coagulation with Eliquis, continue cardio recommended to consider exercise stress test as outpt when COPD exacerbation resolved BS management with SS of insulin pain management with NSAIDS for chest pain reproducible on palpation, CP of MS origin, likely costochondritis Subjective Allergies: Coded Allergies: PENICILLINS (Verified Allergy, Intermediate, Hives, 07/09/16) Objective Last 24 Hour Vital Signs Date Time Temp Pulse Resp B/P (MAP) Pulse Ox O2 Delivery O2 Flow Rate FiO2 02/12/17 04:00 97.8 97 21 149/87 96 02/12/17 00:00 97.5 93 21 152/92 96 Nasal Cannula 02/11/17 21:44 97.3 98 21 151/96 95 Nasal Cannula 02/11/17 20:23 92 20 Nasal Cannula 2.0 28 02/11/17 20:22 Nasal Cannula 2.0 28 02/11/17 20:22 96 Nasal Cannula 2.0 28 02/11/17 20:00 97.3 97 20 149/80 98 Nasal Cannula 2.0 02/11/17 19:30 97.9 02/11/17 16:23 97.9 94 18 127/75 96 02/11/17 16:00 96 02/11/17 15:47 92 20 99 Nasal Cannula 2.0 28 02/11/17 15:38 90 20 98 Nasal Cannula 2.0 28 02/11/17 15:38 36 02/11/17 12:00 95 02/11/17 11:18 97.1 97 19 143/76 96 02/11/17 08:15 96.8 93 18 162/93 100 02/11/17 08:00 92 Microbiology Date/Time Source Procedure Growth Status 02/09/17 19:10 Arm Left Blood Culture - Preliminary NO GROWTH AFTER 48 HOURS Resulted 02/09/17 19:00 Arm Left Blood Culture - Preliminary NO GROWTH AFTER 48 HOURS Resulted Laboratory Tests 02/11/17 20:00: Troponin I 0.002 02/12/17 04:30: White Blood Count 10.9H, Red Blood Count 4.50, Hemoglobin 13.1, Hematocrit 38.0 , Mean Corpuscular Volume 84, Mean Corpuscular Hemoglobin 29.0, Mean Corpuscular Hemoglobin Concent 34.4, Red Cell Distribution Width 15.2H, Platelet Count 349, Mean Platelet Volume 7.8, Neutrophils (%) (Auto) , Lymphocytes (%) (Auto) , Monocytes (%) (Auto) , Eosinophils (%) (Auto) , Basophils (%) (Auto) , Erythrocyte Sedimentation Rate 12, Sodium Level 137, Potassium Level 4.5, Chloride Level 100, Carbon Dioxide Level 29, Anion Gap 8, Blood Urea Nitrogen 30H, Creatinine 1.6H, Estimat Glomerular Filtration Rate 38.8, Glucose Level 220H, Calcium Level 9.4, Phosphorus Level 3.3, Magnesium Level 1.9, Total Bilirubin 0.2, Aspartate Amino Transf (AST/SGOT) 19, Alanine Aminotransferase (ALT/SGPT) 23, Alkaline Phosphatase 83, Total Protein 7.2, Albumin 3.4, Globulin 3.8, Albumin/Globulin Ratio 0.9L Current Medications Medications (Trade) Dose Ordered Sig/Anthony Route PRN Reason Start Time Stop Time Status Last Admin Dose Admin Albuterol/ Ipratropium (Albuterol/ Ipratropium) 3 ml Q4H PRN HHN dyspnea 02/12/17 02:00 02/14/17 21:59 Apixaban (Eliquis) 2.5 mg BID ORAL 02/12/17 09:00 03/12/17 08:59 Dextrose (Dextrose 50%) STAT PRN IV Hypoglycemia 02/12/17 22:00 03/11/17 21:59 Furosemide (Lasix) 40 mg Q12HR ORAL 02/12/17 09:00 03/13/17 11:59 Ibuprofen (Motrin) 600 mg THREE TIMES A DAY ORAL 02/12/17 09:00 02/14/17 09:01 UNV Insulin Aspart (NovoLOG) BEFORE MEALS AND HS SUBQ 02/12/17 06:30 03/12/17 06:29 02/12/17 07:19 Insulin Detemir (Levemir) 10 units QHS SUBQ 02/12/17 21:00 03/12/17 20:59 Ketorolac Tromethamine (Toradol 30mg) 30 mg EVERY 8 HOURS PRN IV moderate pain 4-6 02/11/17 22:00 02/14/17 21:59 UNV Lorazepam (Ativan 2mg/ml 1ml) 0.5 mg Q4H PRN IV For Anxiety 02/12/17 02:00 02/16/17 21:59 Methylprednisolone Sodium Succinate (Solu-MEDROL) 60 mg EVERY 8 HOURS IV 02/11/17 22:00 03/12/17 00:00 02/12/17 06:43 Montelukast Sodium (Singulair) 10 mg DAILY ORAL 02/12/17 09:00 03/12/17 08:59 Morphine Sulfate (Morphine Sulfate) 2 mg Q4H PRN IVP severe pain 7-10 02/12/17 02:00 02/16/17 21:59 02/12/17 06:48 Nitroglycerin (Ntg) 0.4 mg Q5M X 3 DOSES PRN SL Prn Chest Pain 02/11/17 22:00 03/11/17 21:59 Ondansetron HCl (Zofran) 4 mg Q6H PRN IVP Nausea & Vomiting 02/12/17 04:00 03/11/17 21:59 Promethazine HCl/ Codeine (Phenergan with Codeine) 5 ml Q6H PRN ORAL cough 02/12/17 04:00 03/11/17 21:59 Temazepam (Restoril) 15 mg HSPRN PRN ORAL Insomnia 02/11/17 22:00 02/16/17 21:59 Theophylline (Tani-Dur) 100 mg EVERY 12 HOURS ORAL 02/12/17 09:00 03/12/17 08:59 [facility]Mon[facility] CenterAshleigh Gill NP Feb 12, 2017 07:32
[2017-02-12] MEDS: Theophylline ER 100mg ORAL SCH ×2 (08:34→20:59)
[2017-02-12] MEDS: Montelukast 10mg tablet ORAL SCH (08:35)
[2017-02-12] MEDS: Furosemide 40mg tab ORAL SCH ×2 (08:35→20:59)
[2017-02-12] MEDS: Eliquis 2.5mg tablet ORAL SCH ×2 (08:35→17:14)
--- NOTE | 2017-02-12 12:46 | Pulmonology Progress Note ---
Assessment/Plan Assessment/Plan ASSESSMENT Acute COPD exacerbation Acute purulent bronchitis A flutter morbid obesity acute renal failure ( creat up to 1.6) HTN CP reproducible on palpation, Likely costochondritis Diastolic dysfunction DM PLAN OF CARE MS floor O2 HHN ATC and prn taper steroids today Empiric abx sputum cx if able CXR + CM, bibasilar atelectasis, small left pleural effusion, a/tussive prn continue with theophylline cardio follows ECHO with pEF 60-65% Serial troponin negative continue diuretic due to diastolic dysfunction monitor renal parameters, lytes, I/O on a/coagulation with Eliquis, continue cardio recommended to consider exercise stress test as outpt when COPD exacerbation resolved 250 cc bolus NS , check creat in am BS management with SS of insulin pain management with NSAIDS for chest pain reproducible on palpation, CP of MS origin, likely costochondritis Venous Duplex BLE dc plan, case discussed and evaluated by supervising physician Subjective Allergies: Coded Allergies: PENICILLINS (Verified Allergy, Intermediate, Hives, 07/09/16) Subjective still with bronchospasm, creat up to 1.6 Objective Last 24 Hour Vital Signs Date Time Temp Pulse Resp B/P (MAP) Pulse Ox O2 Delivery O2 Flow Rate FiO2 02/12/17 12:00 97.9 99 20 152/99 100 02/12/17 11:31 97.6 02/12/17 10:41 97 Nasal Cannula 2.0 28 02/12/17 08:45 91 20 97 Nasal Cannula 2.0 28 02/12/17 08:20 91 20 Nasal Cannula 2.0 28 02/12/17 08:20 Nasal Cannula 2.0 28 02/12/17 08:00 97.6 92 20 150/81 95 02/12/17 04:00 97.8 97 21 149/87 96 02/12/17 00:00 97.5 93 21 152/92 96 Nasal Cannula 02/11/17 21:44 97.3 98 21 151/96 95 Nasal Cannula 02/11/17 20:23 92 20 Nasal Cannula 2.0 28 02/11/17 20:22 Nasal Cannula 2.0 28 02/11/17 20:22 96 Nasal Cannula 2.0 28 02/11/17 20:00 97.3 97 20 149/80 98 Nasal Cannula 2.0 02/11/17 19:30 97.9 02/11/17 16:23 97.9 94 18 127/75 96 02/11/17 16:00 96 02/11/17 15:47 92 20 99 Nasal Cannula 2.0 28 02/11/17 15:38 90 20 98 Nasal Cannula 2.0 28 02/11/17 15:38 36 Intake and Output 02/12/17 02/13/17 19:00 07:00 Intake Total 360 ml Balance 360 ml Intake Oral 360 ml General Appearance: other - awake, alert, morbidly obese female in mild distress HEENT: normocephalic, atraumatic, anicteric, mucous membranes moist Respiratory/Chest: no accessory muscle use, expiratory wheezing Cardiovascular: normal rate, regular rhythm Abdomen: normal bowel sounds, soft, non tender - obese Extremities: pedal pulses normal Neurologic/Psychiatric: alert, oriented x 3, responsive, normal mood/affect Musculoskeletal: normal muscle bulk Microbiology Date/Time Source Procedure Growth Status 02/09/17 19:10 Arm Left Blood Culture - Preliminary NO GROWTH AFTER 48 HOURS Resulted 02/09/17 19:00 Arm Left Blood Culture - Preliminary NO GROWTH AFTER 48 HOURS Resulted Laboratory Tests 02/11/17 20:00: Troponin I 0.002 02/12/17 04:30: White Blood Count 10.9H, Red Blood Count 4.50, Hemoglobin 13.1, Hematocrit 38.0 , Mean Corpuscular Volume 84, Mean Corpuscular Hemoglobin 29.0, Mean Corpuscular Hemoglobin Concent 34.4, Red Cell Distribution Width 15.2H, Platelet Count 349, Mean Platelet Volume 7.8, Neutrophils (%) (Auto) , Lymphocytes (%) (Auto) , Monocytes (%) (Auto) , Eosinophils (%) (Auto) , Basophils (%) (Auto) , Erythrocyte Sedimentation Rate 12, Sodium Level 137, Potassium Level 4.5, Chloride Level 100, Carbon Dioxide Level 29, Anion Gap 8, Blood Urea Nitrogen 30H, Creatinine 1.6H, Estimat Glomerular Filtration Rate 38.8, Glucose Level 220H, Calcium Level 9.4, Phosphorus Level 3.3, Magnesium Level 1.9, Total Bilirubin 0.2, Aspartate Amino Transf (AST/SGOT) 19, Alanine Aminotransferase (ALT/SGPT) 23, Alkaline Phosphatase 83, Total Protein 7.2, Albumin 3.4, Globulin 3.8, Albumin/Globulin Ratio 0.9L Current Medications Medications (Trade) Dose Ordered Sig/Anthony Route PRN Reason Start Time Stop Time Status Last Admin Dose Admin Albuterol/ Ipratropium (Albuterol/ Ipratropium) 3 ml Q4H PRN HHN dyspnea 02/12/17 02:00 02/14/17 21:59 02/12/17 08:49 Apixaban (Eliquis) 2.5 mg BID ORAL 02/12/17 09:00 03/12/17 08:59 02/12/17 08:35 Dextrose (Dextrose 50%) STAT PRN IV Hypoglycemia 02/12/17 22:00 03/11/17 21:59 Furosemide (Lasix) 40 mg Q12HR ORAL 02/12/17 09:00 03/13/17 11:59 02/12/17 08:35 Ibuprofen (Motrin) 600 mg THREE TIMES A DAY ORAL 02/12/17 12:30 02/14/17 13:01 Insulin Aspart (NovoLOG) BEFORE MEALS AND HS SUBQ 02/12/17 06:30 03/12/17 06:29 02/12/17 11:12 Insulin Detemir (Levemir) 10 units QHS SUBQ 02/12/17 21:00 03/12/17 20:59 Ketorolac Tromethamine (Toradol 30mg) 30 mg EVERY 8 HOURS PRN IV moderate pain 4-6 02/11/17 22:00 02/14/17 21:59 UNV Lorazepam (Ativan 2mg/ml 1ml) 0.5 mg Q4H PRN IV For Anxiety 02/12/17 02:00 02/16/17 21:59 Methylprednisolone Sodium Succinate (Solu-MEDROL) 60 mg EVERY 8 HOURS IV 02/11/17 22:00 03/12/17 00:00 02/12/17 06:43 Montelukast Sodium (Singulair) 10 mg DAILY ORAL 02/12/17 09:00 03/12/17 08:59 02/12/17 08:35 Morphine Sulfate (Morphine Sulfate) 2 mg Q4H PRN IVP severe pain 7-10 02/12/17 02:00 02/16/17 21:59 02/12/17 11:01 Nitroglycerin (Ntg) 0.4 mg Q5M X 3 DOSES PRN SL Prn Chest Pain 02/11/17 22:00 03/11/17 21:59 Ondansetron HCl (Zofran) 4 mg Q6H PRN IVP Nausea & Vomiting 02/12/17 04:00 03/11/17 21:59 Promethazine HCl/ Codeine (Phenergan with Codeine) 5 ml Q6H PRN ORAL cough 02/12/17 04:00 03/11/17 21:59 Temazepam (Restoril) 15 mg HSPRN PRN ORAL Insomnia 02/11/17 22:00 02/16/17 21:59 Theophylline (Tani-Dur) 100 mg EVERY 12 HOURS ORAL 02/12/17 09:00 03/12/17 08:59 02/12/17 08:34 [facility] ShortM[facility] HospitalAshleigh Gill NP Feb 12, 2017 12:46
[2017-02-12] MEDS ORDERED: NS 250 ML IVLG SCH (13:00)
[2017-02-12] MEDS: Albuterol/Ipratropium 3ml neb INH SCH ×2 (15:38→19:30)
[2017-02-12] MEDS: Levemir Flexpen SUBQ SCH (21:06)
[2017-02-13] MEDS: Morphine Sulfate 2mg/ml Inj IVP PRN ×5 (03:49→21:40)
[2017-02-13 04:00] VITALS: BP 125/78
[2017-02-13] MEDS: NovoLOG Insulin Flexpen SUBQ SCH ×4 (06:50→20:56)
[2017-02-13] MEDS: Albuterol/Ipratropium 3ml neb INH SCH ×3 (06:57→20:25)
[2017-02-13 08:00] VITALS: BP 143/84
[2017-02-13 08:00] LABS: BASOPHILS % (AUTO) 0.7 % (0.0-2.0); EOSINOPHILS % (AUTO) 0.1 % (0.0-3.0); LYMPHOCYTES % (AUTO) 22.1 % (20.0-45.0); MEAN CORPUSCULAR HEMOGLOBIN 27.8 PG (27.0-31.0); MEAN CORPUSCULAR VOLUME 84 FL (80-99); MEAN PLATELET VOLUME 7.4 FL (6.5-10.1); MONOCYTES % (AUTO) 9.7 % (1.0-10.0); NEUTROPHILS % (AUTO) 67.5 % (45.0-75.0); PLATELET COUNT 363 K/UL (150-450); RED BLOOD COUNT 4.73 M/UL (4.20-5.40); RED CELL DISTRIBUTION WIDTH 14.9 % (11.6-14.8); WHITE BLOOD COUNT 12.1 K/UL (4.8-10.8)
[2017-02-13 08:27] LABS: ANION GAP 9 mmol/L (5-15); CALCIUM 8.7 MG/DL (8.5-10.1); CARBON DIOXIDE 32 MMOL/L (21-32); CHLORIDE 101 MMOL/L (98-107); CREATININE 1.5 MG/DL (0.55-1.30); GLOMERULAR FILTRATION RATE 41.7 mL/min (>60); POTASSIUM 3.2 MMOL/L (3.5-5.1); SODIUM 142 MMOL/L (136-145)
[2017-02-13] MEDS: Eliquis 2.5mg tablet ORAL SCH ×2 (09:07→17:21)
[2017-02-13] MEDS: Furosemide 40mg tab ORAL SCH ×3 (09:08→21:00)
[2017-02-13] MEDS: Theophylline ER 100mg ORAL SCH ×2 (09:08→20:44)
[2017-02-13] MEDS: Montelukast 10mg tablet ORAL SCH (09:09)
--- NOTE | 2017-02-13 09:11 | Cardiology Progress Note ---
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 Respiratory: Reports: cough, shortness of breath, wheezing Gastrointestinal/Abdominal: Denies: abdominal pain Genitourinary: Denies: burning Subjective walked in room Objective Last 24 Hour Vital Signs Date Time Temp Pulse Resp B/P (MAP) Pulse Ox O2 Delivery O2 Flow Rate FiO2 02/13/17 08:00 97.5 97 19 143/84 02/13/17 07:27 96 20 98 Nasal Cannula 2.0 28 02/13/17 07:25 28 02/13/17 07:02 94 20 95 Nasal Cannula 2.0 28 02/13/17 07:01 Nasal Cannula 2.0 28 02/13/17 07:01 95 Nasal Cannula 2.0 28 02/13/17 07:00 94 20 Nasal Cannula 2.0 28 02/13/17 04:19 98.0 02/13/17 04:00 97.8 91 20 125/78 98 Room Air 02/12/17 23:53 98.0 102 18 142/87 96 Room Air 02/12/17 20:00 97.3 103 18 115/61 96 Nasal Cannula 2.0 02/12/17 19:42 98 20 98 Nasal Cannula 2.0 28 02/12/17 19:41 28 02/12/17 19:34 Nasal Cannula 2.0 28 02/12/17 19:33 103 20 Nasal Cannula 2.0 28 02/12/17 19:32 97 Nasal Cannula 2.0 28 02/12/17 19:30 101 20 97 Nasal Cannula 2.0 28 02/12/17 18:13 97.8 02/12/17 16:00 97.8 95 19 149/88 97 02/12/17 15:52 91 20 99 Nasal Cannula 2.0 28 02/12/17 15:47 28 02/12/17 15:43 89 20 98 Nasal Cannula 2.0 28 02/12/17 15:40 98 Nasal Cannula 2.0 28 02/12/17 12:00 97.9 99 20 152/99 100 02/12/17 10:41 97 Nasal Cannula 2.0 28 General Appearance: no apparent distress, alert Neck: supple Cardiovascular: normal rate, regular rhythm, other - sternl tenderness to palpation Respiratory/Chest: expiratory wheezing Abdomen: normal bowel sounds, non tender, soft Extremities: trace edema Intake and Output 02/13/17 02/14/17 19:00 07:00 Intake Total 250 ml Balance 250 ml Intake Oral 250 ml # Voids 1 Laboratory Tests Test 02/13/17 05:10 White Blood Count 12.1 K/UL (4.8-10.8) H Red Blood Count 4.73 M/UL (4.20-5.40) Hemoglobin 13.2 G/DL (12.0-16.0) Hematocrit 39.9 % (37.0-47.0) Mean Corpuscular Volume 84 FL (80-99) Mean Corpuscular Hemoglobin 27.8 PG (27.0-31.0) Mean Corpuscular Hemoglobin Concent 33.0 G/DL (32.0-36.0) Red Cell Distribution Width 14.9 % (11.6-14.8) H Platelet Count 363 K/UL (150-450) Mean Platelet Volume 7.4 FL (6.5-10.1) Neutrophils (%) (Auto) 67.5 % (45.0-75.0) Lymphocytes (%) (Auto) 22.1 % (20.0-45.0) Monocytes (%) (Auto) 9.7 % (1.0-10.0) Eosinophils (%) (Auto) 0.1 % (0.0-3.0) Basophils (%) (Auto) 0.7 % (0.0-2.0) Sodium Level 142 MMOL/L (136-145) Potassium Level 3.2 MMOL/L (3.5-5.1) L Chloride Level 101 MMOL/L (98-107) Carbon Dioxide Level 32 MMOL/L (21-32) Anion Gap 9 mmol/L (5-15) Blood Urea Nitrogen 35 mg/dL (7-18) H Creatinine 1.5 MG/DL (0.55-1.30) H Estimat Glomerular Filtration Rate 41.7 mL/min (>60) Glucose Level 112 MG/DL (74-106) #H Calcium Level 8.7 MG/DL (8.5-10.1) LAUREN FUCHS Feb 13, 2017 09:11
--- NOTE | 2017-02-13 09:25 | Pulmonology Progress Note ---
Assessment/Plan Assessment/Plan ASSESSMENT Acute COPD exacerbation Acute purulent bronchitis A flutter morbid obesity acute renal failure ( creat up to 1.6) HTN CP reproducible on palpation, Likely costochondritis Diastolic dysfunction DM PLAN OF CARE MS floor O2 HHN ATC and prn Empiric abx sputum cx if able CXR + CM, bibasilar atelectasis, small left pleural effusion, a/tussive prn continue with theophylline cardio follows ECHO with pEF 60-65% Serial troponin negative continue diuretic due to diastolic dysfunction monitor renal parameters, lytes, I/O on a/coagulation with Eliquis, continue cardio recommended to consider exercise stress test as outpt when COPD exacerbation resolved s/p 250 cc bolus NS , creat down to 1.5 BS management with SS of insulin pain management with NSAIDS for chest pain reproducible on palpation, CP of MS origin, likely costochondritis Venous Duplex BLE negative dc today reinforce complaisance with medications, continue Theophylline x 10 days, taper oral steroid fast fup with PMD next week, cehck renal parameters pit[atietn stress test as recommend by cardio case discussed and evaluated by supervising physician Subjective Allergies: Coded Allergies: PENICILLINS (Verified Allergy, Intermediate, Hives, 07/09/16) Subjective feeling better no wheezing creat trending down-1.5 K-3.2 Objective Last 24 Hour Vital Signs Date Time Temp Pulse Resp B/P (MAP) Pulse Ox O2 Delivery O2 Flow Rate FiO2 02/13/17 08:00 97.5 97 19 143/84 02/13/17 07:27 96 20 98 Nasal Cannula 2.0 28 02/13/17 07:25 28 02/13/17 07:02 94 20 95 Nasal Cannula 2.0 28 02/13/17 07:01 Nasal Cannula 2.0 28 02/13/17 07:01 95 Nasal Cannula 2.0 28 02/13/17 07:00 94 20 Nasal Cannula 2.0 28 02/13/17 04:19 98.0 02/13/17 04:00 97.8 91 20 125/78 98 Room Air 02/12/17 23:53 98.0 102 18 142/87 96 Room Air 02/12/17 20:00 97.3 103 18 115/61 96 Nasal Cannula 2.0 02/12/17 19:42 98 20 98 Nasal Cannula 2.0 28 02/12/17 19:41 28 02/12/17 19:34 Nasal Cannula 2.0 28 02/12/17 19:33 103 20 Nasal Cannula 2.0 02/12/17 19:32 97 Nasal Cannula 2.0 28 02/12/17 19:30 101 20 97 Nasal Cannula 2.0 28 02/12/17 18:13 97.8 02/12/17 16:00 97.8 95 19 149/88 97 02/12/17 15:52 91 20 99 Nasal Cannula 2.0 28 02/12/17 15:47 28 02/12/17 15:43 89 20 98 Nasal Cannula 2.0 28 02/12/17 15:40 98 Nasal Cannula 2.0 28 02/12/17 12:00 97.9 99 20 152/99 100 02/12/17 10:41 97 Nasal Cannula 2.0 Intake and Output 02/13/17 02/14/17 19:00 07:00 Intake Total 250 ml Balance 250 ml Intake Oral 250 ml # Voids 1 Objective General Appearance: awake, alert, morbidly obese female in NAD HEENT: normocephalic, atraumatic, anicteric, mucous membranes moist Respiratory/Chest: no accessory muscle use, clear BS HEART: S1S2 regular, trace edema BLE Abdomen: normal bowel sounds, soft, non tender - obese Extremities: pedal pulses normal Neurologic/Psychiatric: alert, oriented x 3, responsive, normal mood/affect Musculoskeletal: normal muscle bulk Laboratory Tests 02/13/17 05:10: White Blood Count 12.1H, Red Blood Count 4.73, Hemoglobin 13.2, Hematocrit 39.9 , Mean Corpuscular Volume 84, Mean Corpuscular Hemoglobin 27.8, Mean Corpuscular Hemoglobin Concent 33.0, Red Cell Distribution Width 14.9H, Platelet Count 363, Mean Platelet Volume 7.4, Neutrophils (%) (Auto) 67.5, Lymphocytes (%) (Auto) 22.1, Monocytes (%) (Auto) 9.7, Eosinophils (%) (Auto) 0.1, Basophils (%) (Auto) 0.7, Sodium Level 142, Potassium Level 3.2L, Chloride Level 101, Carbon Dioxide Level 32, Anion Gap 9, Blood Urea Nitrogen 35H, Creatinine 1.5H, Estimat Glomerular Filtration Rate 41.7, Glucose Level 112#H, Calcium Level 8.7 Current Medications Medications (Trade) Dose Ordered Sig/Anthony Route PRN Reason Start Time Stop Time Status Last Admin Dose Admin Albuterol/ Ipratropium (Albuterol/ Ipratropium) 3 ml Q4H PRN HHN dyspnea 02/12/17 02:00 02/14/17 21:59 02/12/17 08:49 Albuterol/ Ipratropium (Albuterol/ Ipratropium) 3 ml TIDRT INH 02/12/17 13:00 02/17/17 12:59 02/13/17 06:57 Apixaban (Eliquis) 2.5 mg BID ORAL 02/12/17 09:00 03/12/17 08:59 02/13/17 09:07 Dextrose (Dextrose 50%) STAT PRN IV Hypoglycemia 02/12/17 22:00 03/11/17 21:59 Furosemide (Lasix) 40 mg Q12HR ORAL 02/12/17 09:00 03/13/17 11:59 02/13/17 09:20 Insulin Aspart (NovoLOG) BEFORE MEALS AND HS SUBQ 02/12/17 06:30 03/12/17 06:29 02/13/17 06:50 Insulin Detemir (Levemir) 10 units QHS SUBQ 02/12/17 21:00 03/12/17 20:59 02/12/17 21:06 Lorazepam (Ativan 2mg/ml 1ml) 0.5 mg Q4H PRN IV For Anxiety 02/12/17 02:00 02/16/17 21:59 Methylprednisolone Sodium Succinate (Solu-MEDROL) 60 mg DAILY IV 02/13/17 14:00 03/12/17 13:59 Montelukast Sodium (Singulair) 10 mg DAILY ORAL 02/12/17 09:00 03/12/17 08:59 02/13/17 09:09 Morphine Sulfate (Morphine Sulfate) 2 mg Q4H PRN IVP severe pain 7-10 02/12/17 02:00 02/16/17 21:59 02/13/17 09:09 Nitroglycerin (Ntg) 0.4 mg Q5M X 3 DOSES PRN SL Prn Chest Pain 02/11/17 22:00 03/11/17 21:59 Ondansetron HCl (Zofran) 4 mg Q6H PRN IVP Nausea & Vomiting 02/12/17 04:00 03/11/17 21:59 Promethazine HCl/ Codeine (Phenergan with Codeine) 5 ml Q6H PRN ORAL cough 02/12/17 04:00 03/11/17 21:59 Temazepam (Restoril) 15 mg HSPRN PRN ORAL Insomnia 02/11/17 22:00 02/16/17 21:59 Theophylline (Tani-Dur) 100 mg EVERY 12 HOURS ORAL 02/12/17 09:00 03/12/17 08:59 02/13/17 09:08 [facility] Feb 13, 2017 09:25
[2017-02-13] MEDS ORDERED: THEOPHYLLINE A100 MG ORAL (09:27)
[2017-02-13] MEDS ORDERED: KCl 10% 40mEq/30ml liquid NG ONE (10:30)
[2017-02-13 12:00] VITALS: BP 159/78
[2017-02-13] MEDS: Solu-MEDROL 125mg Inj IV SCH (13:25)
[2017-02-13 16:00] VITALS: BP 147/93
[2017-02-13 20:12] VITALS: BP 143/88
[2017-02-13] MEDS: Levemir Flexpen SUBQ SCH (22:11)
[2017-02-14] VITALS (7 sets, daily range): BP systolic 132–146; BP diastolic 74–90
[2017-02-14] MEDS: Morphine Sulfate 2mg/ml Inj IVP PRN ×6 (01:44→22:19)
[2017-02-14] MEDS: NovoLOG Insulin Flexpen SUBQ SCH ×4 (06:33→21:26)
[2017-02-14] MEDS: Albuterol/Ipratropium 3ml neb INH SCH ×3 (06:58→20:50)
[2017-02-14 08:03] LABS: ANION GAP 9 mmol/L (5-15); CALCIUM 8.9 MG/DL (8.5-10.1); CARBON DIOXIDE 28 MMOL/L (21-32); CHLORIDE 102 MMOL/L (98-107); GLOMERULAR FILTRATION RATE > 60 mL/min (>60); POTASSIUM 4.9 MMOL/L (3.5-5.1); SODIUM 139 MMOL/L (136-145)
[2017-02-14] MEDS: Montelukast 10mg tablet ORAL SCH (09:02)
[2017-02-14] MEDS: Eliquis 2.5mg tablet ORAL SCH ×2 (09:02→17:21)
[2017-02-14] MEDS: Furosemide 40mg tab ORAL SCH ×2 (09:02→20:11)
[2017-02-14] MEDS: Theophylline ER 100mg ORAL SCH ×2 (09:02→20:11)
[2017-02-14] MEDS: Solu-MEDROL 125mg Inj IV SCH (09:03)
--- NOTE | 2017-02-14 11:00 | Diagnostic Imaging Report ---
Indication: Pain Comparison: None Findings: 2 views of the sternum obtained. There is no obvious fracture. However visualization is very limited. Impression: Grossly negative study. If there is significant concern for sternal trauma recommend CT scan.
--- NOTE | 2017-02-14 11:56 | Pulmonology Progress Note ---
Assessment/Plan Assessment/Plan ASSESSMENT Acute COPD exacerbation Acute purulent bronchitis A flutter morbid obesity acute renal failure ( creat up to 1.6) HTN CP reproducible on palpation, Likely costochondritis Diastolic dysfunction DM PLAN OF CARE MS floor O2 HHN ATC and prn Empiric abx sputum cx if able CXR + CM, bibasilar atelectasis, small left pleural effusion, a/tussive prn continue with theophylline cardio follows ECHO with pEF 60-65% Serial troponin negative continue diuretic due to diastolic dysfunction monitor renal parameters, lytes, I/O on a/coagulation with Eliquis, continue cardio recommended to consider exercise stress test as outpt when COPD exacerbation resolved creat down to normal BS management with SS of insulin pain management with NSAIDS for chest pain reproducible on palpation, CP of MS origin, likely costochondritis Venous Duplex BLE negative dc today reinforce complaisance with medications, continue Theophylline x 10 days, taper oral steroid fast fup with PMD next week, check renal parameters outpatient stress test as recommend by cardio case discussed and evaluated by supervising physician Subjective Allergies: Coded Allergies: PENICILLINS (Verified Allergy, Intermediate, Hives, 07/09/16) Subjective patient refused to leave yesterday and today, stating she still has pain creat trending down-1.0 K stable Objective Last 24 Hour Vital Signs Date Time Temp Pulse Resp B/P (MAP) Pulse Ox O2 Delivery O2 Flow Rate FiO2 02/14/17 08:00 98.5 104 20 139/74 97 Room Air 02/14/17 07:13 28 02/14/17 07:13 78 20 99 Nasal Cannula 2.0 02/14/17 07:03 84 20 94 Nasal Cannula 2.0 02/14/17 07:01 Nasal Cannula 2.0 02/14/17 06:59 95 Nasal Cannula 2.0 02/14/17 04:33 97.9 88 20 142/86 97 02/14/17 02:14 97.4 02/14/17 00:19 97.4 101 19 140/90 98 02/13/17 20:35 90 18 96 Nasal Cannula 2.0 02/13/17 20:24 Nasal Cannula 2.0 28 02/13/17 20:24 28 02/13/17 20:24 94 Nasal Cannula 2.0 02/13/17 20:23 93 18 94 Nasal Cannula 2.0 28 02/13/17 20:12 98.3 100 20 143/88 91 02/13/17 16:00 97.3 91 20 147/93 96 Room Air 02/13/17 13:08 28 02/13/17 13:08 91 18 98 Nasal Cannula 2.0 28 02/13/17 12:59 89 18 95 Nasal Cannula 2.0 28 02/13/17 12:58 95 18 Nasal Cannula 2.0 28 02/13/17 12:00 97.8 88 19 159/78 95 Intake and Output 02/14/17 02/15/17 19:00 07:00 Intake Total 240 ml Balance 240 ml Intake Oral 240 ml # Voids 1 Objective General Appearance: awake, alert, morbidly obese female in NAD HEENT: normocephalic, atraumatic, anicteric, mucous membranes moist Respiratory/Chest: no accessory muscle use, clear BS HEART: S1S2 regular, trace edema BLE Abdomen: normal bowel sounds, soft, non tender - obese Extremities: pedal pulses normal Neurologic/Psychiatric: alert, oriented x 3, responsive, normal mood/affect Musculoskeletal: normal muscle bulk Laboratory Tests 02/14/17 04:45: Sodium Level 139, Potassium Level 4.9#, Chloride Level 102, Carbon Dioxide Level 28, Anion Gap 9, Blood Urea Nitrogen 34H, Creatinine 1.0, Estimat Glomerular Filtration Rate > 60, Glucose Level 104, Calcium Level 8.9 Current Medications Medications (Trade) Dose Ordered Sig/Anthony Route PRN Reason Start Time Stop Time Status Last Admin Dose Admin Albuterol/ Ipratropium (Albuterol/ Ipratropium) 3 ml Q4H PRN HHN dyspnea 02/12/17 02:00 02/14/17 21:59 02/12/17 08:49 Albuterol/ Ipratropium (Albuterol/ Ipratropium) 3 ml TIDRT INH 02/12/17 13:00 02/17/17 12:59 02/14/17 06:58 Apixaban (Eliquis) 2.5 mg BID ORAL 02/12/17 09:00 03/12/17 08:59 02/14/17 09:02 Dextrose (Dextrose 50%) STAT PRN IV Hypoglycemia 02/12/17 22:00 03/11/17 21:59 Furosemide (Lasix) 40 mg Q12HR ORAL 02/12/17 09:00 03/13/17 11:59 02/14/17 09:02 Insulin Aspart (NovoLOG) BEFORE MEALS AND HS SUBQ 02/12/17 06:30 03/12/17 06:29 02/14/17 06:33 Insulin Detemir (Levemir) 10 units QHS SUBQ 02/12/17 21:00 03/12/17 20:59 02/13/17 22:11 Lorazepam (Ativan 2mg/ml 1ml) 0.5 mg Q4H PRN IV For Anxiety 02/12/17 02:00 02/16/17 21:59 Methylprednisolone Sodium Succinate (Solu-MEDROL) 60 mg DAILY IV 02/13/17 14:00 03/12/17 13:59 02/14/17 09:03 Montelukast Sodium (Singulair) 10 mg DAILY ORAL 02/12/17 09:00 03/12/17 08:59 02/14/17 09:02 Morphine Sulfate (Morphine Sulfate) 2 mg Q4H PRN IVP severe pain 7-10 02/12/17 02:00 02/16/17 21:59 02/14/17 10:09 Nitroglycerin (Ntg) 0.4 mg Q5M X 3 DOSES PRN SL Prn Chest Pain 02/11/17 22:00 03/11/17 21:59 Ondansetron HCl (Zofran) 4 mg Q6H PRN IVP Nausea & Vomiting 02/12/17 04:00 03/11/17 21:59 Promethazine HCl/ Codeine (Phenergan with Codeine) 5 ml Q6H PRN ORAL cough 02/12/17 04:00 03/11/17 21:59 Temazepam (Restoril) 15 mg HSPRN PRN ORAL Insomnia 02/11/17 22:00 02/16/17 21:59 Theophylline (Tani-Dur) 100 mg EVERY 12 HOURS ORAL 02/12/17 09:00 03/12/17 08:59 02/14/17 09:02 [facility] NP Feb 14, 2017 11:56
[2017-02-14] MEDS ORDERED: Albuterol/Ipratropium 3ml neb HHN PRN (12:15)
[2017-02-14] MEDS ORDERED: LORazepam Inj 2mg/ml 1ml IV PRN (12:15)
--- NOTE | 2017-02-14 13:25 | Cardiology Progress Note ---
Assessment/Plan Assessment/Plan chest pain reproducible on palpation of sternum copd exacerbation bronchospasm diastolic dysfunction failure obesity still with wheezes 02/14/2017 trop neg despite 6 days pain keep on diuretic treat underlying copd exacerbation once her copd is resolved may consider exercise stress test possibly as outpt nsaid for pain on the chest wall xray of sternum neg bone scan? is on steroids off nsiad Subjective Cardiovascular: Reports: chest pain - worsen with cough or movement Subjective walked in room Objective Last 24 Hour Vital Signs Date Time Temp Pulse Resp B/P (MAP) Pulse Ox O2 Delivery O2 Flow Rate FiO2 02/14/17 10:35 98.5 02/14/17 08:00 98.5 104 20 139/74 97 Room Air 02/14/17 07:13 28 02/14/17 07:13 78 20 99 Nasal Cannula 2.0 28 02/14/17 07:03 84 20 94 Nasal Cannula 2.0 28 02/14/17 07:01 Nasal Cannula 2.0 28 02/14/17 06:59 95 Nasal Cannula 2.0 28 02/14/17 04:33 97.9 88 20 142/86 97 02/14/17 00:19 97.4 101 19 140/90 98 02/13/17 20:35 90 18 96 Nasal Cannula 2.0 28 02/13/17 20:24 Nasal Cannula 2.0 28 02/13/17 20:24 28 02/13/17 20:24 94 Nasal Cannula 2.0 28 02/13/17 20:23 93 18 94 Nasal Cannula 2.0 28 02/13/17 20:12 98.3 100 20 143/88 91 02/13/17 16:00 97.3 91 20 147/93 96 Room Air General Appearance: no apparent distress, alert Neck: supple Cardiovascular: normal rate, regular rhythm, other - chest wal;l tender Respiratory/Chest: expiratory wheezing, inspiratory wheezing Abdomen: normal bowel sounds, non tender, soft Extremities: no swelling Intake and Output 02/14/17 02/15/17 19:00 07:00 Intake Total 240 ml Balance 240 ml Intake Oral 240 ml # Voids 1 Laboratory Tests Test 02/14/17 04:45 Sodium Level 139 MMOL/L (136-145) Potassium Level 4.9 MMOL/L (3.5-5.1) # Chloride Level 102 MMOL/L (98-107) Carbon Dioxide Level 28 MMOL/L (21-32) Anion Gap 9 mmol/L (5-15) Blood Urea Nitrogen 34 mg/dL (7-18) H Creatinine 1.0 MG/DL (0.55-1.30) Estimat Glomerular Filtration Rate > 60 mL/min (>60) Glucose Level 104 MG/DL (74-106) Calcium Level 8.9 MG/DL (8.5-10.1) LAUREN FUCHS Feb 14, 2017 13:25
[2017-02-14] MEDS: Levemir Flexpen SUBQ SCH (21:25)
[2017-02-15 00:42] VITALS: BP 123/92
[2017-02-15] MEDS: Morphine Sulfate 2mg/ml Inj IVP PRN ×3 (02:22→10:36)
[2017-02-15 04:00] VITALS: BP 140/79
[2017-02-15] MEDS: NovoLOG Insulin Flexpen SUBQ SCH ×2 (06:25→12:33)
[2017-02-15] MEDS: Albuterol/Ipratropium 3ml neb INH SCH ×2 (07:35→12:35)
[2017-02-15 08:00] VITALS: BP 124/69
[2017-02-15 08:20] LABS: BASOPHILS % (AUTO) 1.2 % (0.0-2.0); EOSINOPHILS % (AUTO) 0.5 % (0.0-3.0); LYMPHOCYTES % (AUTO) 25.6 % (20.0-45.0); MEAN CORPUSCULAR HEMOGLOBIN 27.8 PG (27.0-31.0); MEAN CORPUSCULAR HGB CONC 32.9 G/DL (32.0-36.0); MEAN CORPUSCULAR VOLUME 85 FL (80-99); MEAN PLATELET VOLUME 8.1 FL (6.5-10.1); NEUTROPHILS % (AUTO) 64.7 % (45.0-75.0); PLATELET COUNT 354 K/UL (150-450); WHITE BLOOD COUNT 11.7 K/UL (4.8-10.8)
[2017-02-15 08:26] LABS: ANION GAP 5 mmol/L (5-15); CALCIUM 9.1 MG/DL (8.5-10.1); CARBON DIOXIDE 37 MMOL/L (21-32); CHLORIDE 99 MMOL/L (98-107); CREATININE 1.1 MG/DL (0.55-1.30); GLOMERULAR FILTRATION RATE 59.8 mL/min (>60); POTASSIUM 3.5 MMOL/L (3.5-5.1); SODIUM 141 MMOL/L (136-145)
[2017-02-15] MEDS: Theophylline ER 100mg ORAL SCH (09:10)
[2017-02-15] MEDS: Eliquis 2.5mg tablet ORAL SCH (09:10)
[2017-02-15] MEDS: Furosemide 40mg tab ORAL SCH (09:10)
[2017-02-15] MEDS: Solu-MEDROL 125mg Inj IV SCH (09:10)
[2017-02-15] MEDS: Montelukast 10mg tablet ORAL SCH (09:10)
--- NOTE | 2017-02-15 09:12 | Diagnostic Imaging Report ---
Clinical Indication: CP sternum and anterior rib pain Technique: Spiral acquisitions obtained through the chest. No IV contrast utilized, is reason not stated. Multiplanar reconstructions generated. Total dose length product 1497 mGycm. CTDIvol(s) 39 mGy. Dose reduction achieved using automated exposure control Comparison: None Findings:The bones are intact except for mild degenerative thoracic spondylosis changes.. No acute fracture demonstrated. 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 The sternum is intact. There is a large right paratracheal mass. This measures 5 cm transverse by 4.3 cm AP by 7.4 cm craniocaudad. Is not entirely clear whether it is contiguous with or simply adjacent to the lower pole right thyroid lobe. It extends well into the mediastinum, but into the middle mediastinum rather than the anterior mediastinum. It slightly displaces the trachea anteriorly and to the left. It is homogeneous, demonstrates soft tissue attenuation, and demonstrates numerous coarse calcifications. The thyroid itself also contains some, less extensive, calcifications. The heart is mildly enlarged. No pericardial effusion. No other mediastinal or hilar mass or adenopathy demonstrated. The lungs are clear. No infiltrates, masses, nodules, or effusions. The included upper abdominal anatomy is unremarkable except for evidence of prior upper abdominal surgery. Impression: No evidence of acute bony trauma 5 x 4.2 x 7.4 cm middle mediastinal mass, contiguous apparently with the lower pole of the thyroid and therefore most likely of thyroid origin Cardiomegaly Evidence of prior upper abdominal surgery The CT scanner at [facility] is accredited by the [employer] and the scans are performed using protocols designed to limit radiation exposure to as low as reasonably achievable to attain images of sufficient resolution adequate for diagnostic evaluation.
[2017-02-15 12:00] VITALS: BP 139/75
--- NOTE | 2017-02-15 15:38 | Pulmonology Progress Note ---
Assessment/Plan Problems: (1) COPD exacerbation (2) ACS (acute coronary syndrome) (3) Purulent bronchitis (4) Atrial flutter (5) Morbid obesity (6) Hypertension Assessment/Plan feeling much bettterimproving respiratory treatment continue current meds dc planning in progress Subjective ROS Limited/Unobtainable: No Constitutional: Reports: no symptoms HEENT: Repors: no symptoms Respiratory: Reports: no symptoms Allergies: Coded Allergies: PENICILLINS (Verified Allergy, Intermediate, Hives, 07/09/16) Objective Last 24 Hour Vital Signs Date Time Temp Pulse Resp B/P (MAP) Pulse Ox O2 Delivery O2 Flow Rate FiO2 02/15/17 12:45 87 20 97 Room Air 21 02/15/17 12:37 86 18 96 Room Air 21 02/15/17 12:00 98.5 100 20 139/75 99 02/15/17 11:05 98.5 02/15/17 08:00 98.0 89 19 124/69 02/15/17 07:43 90 20 97 Nasal Cannula 2.0 28 02/15/17 07:39 97 Nasal Cannula 2.0 28 02/15/17 07:39 Nasal Cannula 2.0 28 02/15/17 07:38 91 20 97 Nasal Cannula 2.0 28 02/15/17 04:00 98.1 90 18 140/79 98 02/15/17 00:42 98.3 91 19 123/92 99 02/14/17 21:31 28 02/14/17 21:30 Nasal Cannula 2.0 28 02/14/17 20:24 97.5 86 19 144/81 95 02/14/17 19:51 72 20 95 Nasal Cannula 2.0 28 02/14/17 19:42 68 20 94 Nasal Cannula 2.0 28 02/14/17 19:41 94 Nasal Cannula 2.0 28 02/14/17 18:06 97.8 68 20 132/79 98 Room Air 02/14/17 16:00 97.0 68 20 132/79 98 Room Air Intake and Output 02/15/17 02/16/17 19:00 07:00 Intake Total 720 ml Balance 720 ml Intake Oral 720 ml # Voids 2 General Appearance: WD/WN HEENT: normocephalic, atraumatic Respiratory/Chest: chest wall non-tender, normal breath sounds Cardiovascular: normal peripheral pulses, normal rate Abdomen: normal bowel sounds, soft, non tender Genitourinary: normal external genitalia Extremities: no clubbing Skin: no rash Laboratory Tests 02/15/17 07:25: White Blood Count 11.7H, Red Blood Count 5.40, Hemoglobin 15.0, Hematocrit 45.8 , Mean Corpuscular Volume 85, Mean Corpuscular Hemoglobin 27.8, Mean Corpuscular Hemoglobin Concent 32.9, Red Cell Distribution Width 15.0H, Platelet Count 354, Mean Platelet Volume 8.1, Neutrophils (%) (Auto) 64.7, Lymphocytes (%) (Auto) 25.6, Monocytes (%) (Auto) 8.0, Eosinophils (%) (Auto) 0.5, Basophils (%) (Auto) 1.2, Sodium Level 141, Potassium Level 3.5, Chloride Level 99, Carbon Dioxide Level 37H, Anion Gap 5, Blood Urea Nitrogen 24H, Creatinine 1.1, Estimat Glomerular Filtration Rate 59.8, Glucose Level 110H, Calcium Level 9.1 SOPHIA IBARRA Feb 15, 2017 15:38
--- NOTE | 2017-02-16 10:43 | Diagnostic Imaging Report ---
APPROVED REPORT CPT Code: 70970 Present Symptoms Comments: Swelling Technically difficult study due to patient body habitus. Thigh and calf area. BILATERAL: Imaging reveals a patent deep venous system bilaterally. There is no evidence of thrombus within the femoral, popliteal or tibial segments. The greater saphenous veins are also within normal limits. Doppler indicates normal spontaneous flow within these segments.
--- NOTE | 2017-02-16 10:43 | Diagnostic Imaging Report ---
APPROVED REPORT CPT Code: 70608 Present Symptoms Comments: R/O DVT BILATERAL UPPER EXTREMITY: Imaging reveals patency of the internal jugular, subclavian, axillary and brachial veins. The cephalic and basilic veins are also patent. Doppler indicates normal spontaneous flow within these venous segments, bilaterally. NOTE: Right internal jugular vein appears to be larger than left internal jugular vein, however the right internal jugular vein does not have any visible acute or chronic thrombus.
--- NOTE | 2017-02-18 09:26 | Discharge Summary ---
Discharge Summary Hospital Course Date of Admission Feb 09, 2017 at 21:00 Date of Discharge Feb 15, 2017 at 15:00 Admitting Diagnosis COPD EXACERBATION, CHEST PAIN HPI Mariya Musa is a 71 year old female who was admitted on Feb 09, 2017 at 21:00 for Chronic Obstructive Pulmonary Disease Hospital Course dc summary #[id number] Discharge Condition Upon Discharge: stable Discharge Disposition Patient was discharged to Home () Discharge Diagnoses: Ernie ([facility])Ashleigh NP Feb 18, 2017 09:26
--- NOTE | 2017-02-19 00:45 | Discharge Summary 2 SIG ---
DATE OF ADMISSION: 02/09/2017 DATE OF DISCHARGE: 02/15/2017 REASON FOR ADMISSION: 71-year-old female with past medical history of CHF, hypertension, and COPD. presented with chest pain and chest tightness. Symptoms worsened after eating a hamburger. She reported chest tightness for one week, cough, and difficulty with breathing. Nitroglycerin given by guest service supervisor did not improve her symptoms. She denied fever, chills, nausea, or vomiting. Workup in the emergency room revealed stable vital signs, no leukocytosis, stable hemoglobin and hematocrit. Electrolytes were stable. Troponin was negative. Pro BNP- 373. Urinalysis was negative for evidence of UTI, no protein, no occult blood. EKG revealed normal sinus rhythm with a left bundle-branch block, no PVC, no ectopy, and no ischemic changes. Chest x-ray revealed diffuse patchy opacities. The patient was admitted for chest pain and COPD exacerbation. HOSPITAL STAY: The patient was admitted. The patient was placed initially on telemetry floor. Cardiology consult was requested. The patient was started on IV steroids, empiric antibiotics. Supplemental oxygen was provided as needed to keep saturation above 92%. Pulmonary toilet provided. Telemetry showed atrial flutter. Heart rate was controlled. Echocardiogram results did not change from previous , done on 07/2016. Echocardiogram revealed preserved ejection fraction of 60% to 65%, no evidence of left ventricular hypertrophy, no evidence of wall motion abnormality, mitral diastolic velocities suggesting reduced left ventricular relaxation consistent with diastolic dysfunction grade 1. Per data control clerk, the patient had chest pain on palpation of the sternum, which exacerbated her pain. The pain was going for six days constantly. All cardiac enzymes were negative making the ischemic pain less likely in this patient. She had been treated for diastolic heart failure previously and should be continued on this treatment for now. Manager Club recommended stress test as outpatient after COPD exacerbation will be resolved. Blood cultures were negative. Sternum x-ray was negative for any acute findings. Antitussive provided as needed. Theophylline trial was started. Diuretic was continued due to the diastolic dysfunction. Renal parameters, electrolytes, intake and output were closely monitored. Acute renal failure noted with a creatinine of 1.6, likely due to the steroid and diuretic dose. Steroids were rapidly tapered and creatinine down to to normal. Blood sugar was managed with sliding scale of insulin. Pain management was provided. Started on nonsteroidal anti-inflammatory medication for chest pain , reproducible on palpation. Chest pain of musculoskeletal origin, possibly costochondritis. Venous duplex of bilateral lower extremities was negative. CT of the chest results came after the patient was discharged. It revealed 5 x 4.2 x 7.5 cm middle mediastinal mass contiguous apparently within the lower pole of the thyroid and therefore most likely of thyroid origin. The patient was discharged home. The patient will be contacted for followup. FINAL DIAGNOSES: 1. Acute chronic obstructive pulmonary disease exacerbation. 2. Acute purulent bronchitis. 3. Atrial flutter. 4. Morbid obesity. 5. Acute renal failure, resolved likely due to combination of diuretic and steroids. 6. Hypertension. 7. Chest pain reproducible on palpation. 8. Likely costochondritis. 9. Diastolic dysfunction /failure. 10. Diabetes mellitus. 11. Middle mediastinal mass likely of thyroid origin. DISCHARGE MEDICATIONS: See medication reconciliation list. DISCHARGE INSTRUCTIONS: The patient discharged home. The patient will follow up with the primary medical doctor next week. The patient will be contacted for results of the CT of the chest and follow up with the primary medical doctor as outpatient for further workup. Sharan Mariscal M.D. Ashleigh ShortWestchester Square Medical CenterJairo N.PCali DR: JERICHO JOB#: [id number] CC: JINNY
[2017-03-13] MEDS ORDERED: NORCO 5-325 TA1 EAC1 ORAL (17:12)
[2017-03-13] MEDS ORDERED: BACITRACIN15 GM TOPIC (17:12)
== END 2017-02-15 15:00 | disposition home or self-care (01) | DRG 140 ==
LOC: EDBD 18:47 → EMR 20:59 → 2E 21:00 → EDBEDREQ 21:13 → 2E 22:29 → 3E 02-11 21:20
DX: J44.1 Chronic obstructive pulmonary disease with (acute) exacerbation (principal); N17.9 Acute kidney failure, unspecified; I50.30 Unspecified diastolic (congestive) heart failure; E11.42 Type 2 diabetes mellitus with diabetic polyneuropathy; Z68.42 Body mass index [BMI] 45.0-49.9, adult; I48.92 Unspecified atrial flutter; Z88.0 Allergy status to penicillin; Z79.01 Long term (current) use of anticoagulants; E66.01 Morbid (severe) obesity due to excess calories; I10 Essential (primary) hypertension; J20.9 Acute bronchitis, unspecified; J44.0 Chronic obstructive pulmonary disease with (acute) lower respiratory infection; M94.0 Chondrocostal junction syndrome [Tietze]; R22.2 Localized swelling, mass and lump, trunk
CPT/HCPCS: 36415; 71010; 71120; 71250; 80048; 80053; 81003; 82550; 82553; 82962; 83735; 83880; 84100; 84484; 85025; 85610; 85651; 85730; 87040; 93005; 93306; 93970; 94640; 94664; 94760; 99285; J1815; J7620; J8499; S5561

== ENCOUNTER → 2017-03-13 | Emergency (ER) | payer MEDICARE, MEDICAID ==
[~2017-03-13] VITALS: Ht 165.1 cm; Wt 127.0 kg
[~2017-03-13] MED LIST changes: +BACITRACIN15 GM TOPIC; +CENTRUM SILVER1 EAC4 PO; -Furosemide 40mg tab ORAL SCH; +IBUPROFEN600 MG ORAL; +Lidocaine 1% 10mg/ml/Epi 0.005mg/ml 30ml vial INJ ONE; +Morphine Sulfate 2mg/ml Inj IM ONE; +Morphine Sulfate 4mg/ml Inj IM ONE; +NORCO 5-325 TA1 EAC1 ORAL; +THEOPHYLLINE A100 MG ORAL; +Tetanus/Diptheria/Pertussis Vaccine 0.5ml Syr IM ONE
[2017-03-13 14:41] VITALS: BP 127/72
--- NOTE | 2017-03-13 23:24 | Emergency Room Report ---
History of Present Illness General Chief Complaint: Laceration Source: Patient, EMS (CHANDAN BARRAZA) Present Illness HPI The patient is a 71-year-old female presenting for left leg injury which occurred today. She states that she was in her wheelchair which struck a wall with a nail sticking out of it. She noticed blood around the knee as well as pain described as a 9/10 sharp sensation. She denies any radiating pain. She denies any other injury. Last tetanus shot is unknown (CHANDAN BARRAZA) Allergies: Coded Allergies: PENICILLINS (Verified Allergy, Intermediate, Hives, 07/09/16) Patient History Past Medical History: see triage record Pertinent Family History: none Reviewed Nursing Documentation: PMH: Agreed, PSxH: Agreed (CHANDAN BARRAZA) Nursing Documentation-PMH Past Medical History: No History, Except For Hx Hypertension: Yes Hx Asthma: Yes Hx COPD: Yes Hx Diabetes: Yes Hx Cancer: No Hx Gastrointestinal Problems: No Hx Neurological Problems: No (CHANDAN BARRAZA) Review of Systems All Other Systems: negative except mentioned in HPI (CHANDAN BARRAZA P.ACali) Physical Exam Vital Signs Date Time Temp Pulse Resp B/P (MAP) Pulse Ox O2 Delivery O2 Flow Rate FiO2 03/13/17 14:41 98.4 88 22 127/72 98 Room Air Sp02 EP Interpretation: reviewed, normal General Appearance: no apparent distress, alert, GCS 15, non-toxic Head: normocephalic, atraumatic Eyes: bilateral eye normal inspection, bilateral eye PERRL ENT: hearing grossly normal, normal pharynx, no angioedema, normal voice Neck: full range of motion, supple/symm/no masses Musculoskeletal: back normal, gait/station normal, normal range of motion, no calf tenderness, tender - TTP over L anterior knee Neurologic: alert, oriented x3, responsive, motor strength/tone normal, sensory intact, speech normal Psychiatric: judgement/insight normal, memory normal, mood/affect normal, no suicidal/homicidal ideation Skin: laceration - There is a 12cm linear laceration inferior to L patella Lymphatic: no adenopathy (CHANDAN BARRAZAACali) Procedures Laceration/Wound Repair Laceration/Wound Repair : Consent: Verbal Wound Location: lower extremity Wound's Depth, Shape: superficial, linear Wound Length (cm): 12 Wound Explored: clean Irrigated w/ Saline (ccs): 100 Betadine Prep?: Yes Anesthesia: 1% Lidocaine, Lidocaine w/ Epi Volume Anesthetic (ccs): 10 Wound Debrided: minimal Wound Repaired With: sutures Suture Size/Type: 4:0, proline Number of Sutures: 13 Layer Closure?: No Sterile Dressing Applied?: Yes Splint Applied?: No Sling Applied?: No Patient Tolerated: Well Complications: None (CHANDAN BARRAZA) Medical Decision Making PA Attestation Dr. Mesa is my supervising physician. Patient management was discussed with my supervising physician (CHANDAN BARRAZA) Medicare Attestation The history of Mariya Musa has been reviewed and management options for her have been examined and discussed by Matt Mesa. I have personally examined and interviewed the patient. (MATT MESA M.D.) Diagnostic Impression: Primary Impression: Knee laceration Qualified Codes: S81.012A - Laceration without foreign body, left knee, initial encounter ER Course The patient is a 71-year-old female presenting for left leg laceration Ddx considered include but not limited to fracture, tendon/ligament injury, avulsion, nerve damage Physical exam: There is an approximately 12 cm linear laceration inferior to the left patella. Full active range of motion is intact.patient is able to keep leg in extension. Minimal active bleeding The wound was irrigated with normal saline and cleaned with betadine. A 27g needle was used to administer 10 mL of lidocaine w. Epi for local anasthesia. 13 sutures were placed with 4-0 proline. The wound was well approximated and the patient tolerated the procedure well. The wound was then cleaned and dressing applied She'll be discharged home with pain medication. Suture instructions given (CHANDAN BARRAZA PToy) Other X-Ray Diagnostic Results Other X-Ray Diagnostic Results : X-Ray ordered: L knee # of Views/Limited Vs Complete: 3 View Indication: Pain EP Interpretation: Yes JULIO Xray: Interpretation reviewed, by supervising MD, and agrees with findings. Interpretation: no dislocation, no soft tissue swelling, no fractures Impression: No acute disease Electronically Signed by: Chandan Barraza PA-C (CHANDAN BARRAAZ) Last Vital Signs Date Time Temp Pulse Resp B/P (MAP) Pulse Ox O2 Delivery O2 Flow Rate FiO2 03/13/17 14:41 98.4 88 22 127/72 98 Room Air Status: improved (CHANDAN BARRAZA) Disposition: HOME, SELF-CARE Condition: Improved Scripts Bacitracin (Bacitracin) 28.4 Gm Oint...g. 1 APPLIC TOPIC THREE TIMES A DAY, #28 GM Prov: CHANDAN BARRAZA 03/13/17 Hydrocodone Bit/Acetaminophen 5-325* (NORCO 5-325 TABLET*) 1 Each Tablet 1 TAB ORAL Q6HR, #10 TAB Prov: CHANDAN BARRAZA 03/13/17 Referrals: NON PHYSICIAN (PCP) Patient Instructions: Laceration Care, Adult Additional Instructions: I discussed my findings with the patient. All questions and concerns have been answered. Treatment and medication compliance have been addressed. I advised the patient that they need to follow up with PMD in 7 days for wound check and suture removal. If you are unable to see PMD, return to the ED in 7 days. Return to ED if pain remains or worsens, you notice discharge from the wound, the wound continues to bleed, the suture/s fall out, you notice a fever or chills, or for any reason. Patient is advised to keep the wound clean and apply an antibacterial ointment. Patient verbalized understanding of discharge instructions. CHANDAN BARRAZA Mar 13, 2017 23:24 MATT MESA M.D. Mar 18, 2017 13:16
--- NOTE | 2017-03-14 11:50 | Diagnostic Imaging Report ---
Indication: Pain Technique: XRAY Knee 1-2v L Comparison: None Findings: There is no acute fracture or dislocation. There is degenerative changes in the manifested by tricompartmental joint space narrowing, subchondral sclerosis and osteophyte formation. No suprapatellar knee joint effusion is seen. There is soft tissue abnormality in the prepatellar soft tissues possibly representing laceration. No radiopaque foreign body seen. Atherosclerotic vascular calcification is noted. Impression: Soft tissue abnormality in the prepatellar soft tissues most likely representing a laceration. Correlate with physical exam. No radiopaque foreign body seen. No acute fracture or dislocation. Osteoarthrosis of the knee.
== END | disposition home or self-care (01) ==
LOC: EDUNIT# 14:40 → EDBD 14:46 → EMR 15:50
DX: S81.012A Laceration without foreign body, left knee, initial encounter (principal); Z23 Encounter for immunization; Z88.0 Allergy status to penicillin; I10 Essential (primary) hypertension; J45.909 Unspecified asthma, uncomplicated; J44.9 Chronic obstructive pulmonary disease, unspecified; E11.9 Type 2 diabetes mellitus without complications; W45.0XXA Nail entering through skin, initial encounter; Y92.89 Other specified places as the place of occurrence of the external cause
CPT/HCPCS: 12004; 73560; 90471; 90715; 96372; 99284; J2270